=== PATIENT | male | born 1955 | race African-American/Black ===

== ENCOUNTER → 2023-10-12 09:01 | Outpatient (REF) | payer MEDICARE, OTHER, SELFPAY ==
[2023-10-12 09:28] VITALS: BP 153/71; BP_SYST 56
[2023-10-12 11:09] LABS: Glucose - Point of Care 95 mg/dl (70-99)
[2023-10-12 12:40] VITALS: BP 178/72
[2023-10-12 12:52] LABS: Glucose - Point of Care 129 mg/dl (70-99)
== END ==
LOC: RADI 09:01
PROVIDERS: ATTENDING PHYSICIAN Internal Medicine Nephrology
DX: T82.838A Hemorrhage due to vascular prosthetic devices, implants and grafts, initial encounter (principal); Y83.2 Surgical operation with anastomosis, bypass or graft as the cause of abnormal reaction of the patient, or of later complication, without mention of misadventure at the time of the procedure
CPT/HCPCS: 36902; 82962; 99152; 99153; C1725; C1769

== ENCOUNTER → 2024-03-30 11:41 | Outpatient (REF) | payer MEDICARE, OTHER, SELFPAY | LOC: HWRAD 11:41 | PROVIDERS: ATTENDING PHYSICIAN Internal Medicine | DX: Z87.891 Personal history of nicotine dependence (principal) | CPT/HCPCS: 71271 ==

== ENCOUNTER 2024-04-19 19:12 | Emergency (ER) | payer MEDICARE, OTHER, SELFPAY ==
[2024-04-19 19:14] VITALS: BP 177/58
[2024-04-19 20:42] VITALS: BP 187/58; BMI 20.8
[2024-04-19 21:00] VITALS: BP 176/56
[2024-04-19 21:28] LABS: % Eosinophils 4.1 % (0-6); % Immature Granulocytes 0.4 % (0-0.5); % Lymphocytes 25.7 % (20.5-51.1); % Monocytes 11.4 % (1.7-9.3); % Neutrophils 57.4 % (42.2-75.2); Absolute Basophils 0.1 10^3/uL (0-0.2); Absolute Eosinophils 0.2 10^3/uL (0-0.7); Absolute Lymphocytes 1.2 10^3/uL (1.2-3.4); Absolute Monocytes 0.6 10^3/uL (0.1-0.6); Absolute Neutrophils 2.8 10^3/uL (1.4-6.5); Hematocrit 22.6 % (39.0-52.0); Mean Corp Hgb Conc. 35.4 g/dL (33.0-37.0); Mean Corpuscular Hgb 29.9 pg (27.0-31.0); Mean Corpuscular Volume 84.3 fL (80.0-94.0); Mean Platelet Volume 10.1 fL (7.4-10.4); Nucleated Red Blood Cells % 0 % (-); Platelet Count 167 10^3/uL (130-400); Red Blood Cell Count 2.68 10^6/uL (4.70-6.10); Red Cell Dist. Width 14.6 % (11.5-14.5); White Blood Cell Count 4.8 10^3/uL (4.8-10.8)
[2024-04-19 21:47] LABS: INR 1.13; PT 14.6 Sec (11.4-14.6)
[2024-04-19 21:48] LABS: APTT 30.2 Sec (23.4-35.0)
[2024-04-19 21:49] LABS: ALT (SGPT) 14 U/L (0-50); AST (SGOT) 21 U/L (17-59); Albumin 4.5 g/dl (3.5-5.0); Alkaline Phosphatase 61 U/L (38-126); Blood Urea Nitrogen 39 mg/dl (9-20); Calcium 9.9 mg/dl (8.4-10.2); Carbon Dioxide 27 mmol/L (22-30); Chloride 95 mmol/L (98-107); Estimated Creatinine Clearance 11 ml/min; Glucose 179 mg/dl (70-99); Potassium 3.4 mmol/L (3.5-5.1); Sodium 139 mmol/L (135-145); Total Bilirubin 0.4 mg/dl (0.2-1.3); Total Protein 7.5 g/dl (6.3-8.2)
[2024-04-19 22:00] VITALS: BP 183/63
--- NOTE | 2024-04-19 22:09 | ED.GENMED ---
History of Present Illness
General
Chief Complaint: Abnormal Lab Value
Source: patient
Exam Limitations: none
Time Seen by Provider: 04/19/24 20:26
History of Present Illness
History of Present Illness:
This is a 68 year old male that is brought in by ambulance from the residential with abnormal labs. Patient states that he feels fine but he was told that his blood was low. States that he did vomit and he had some diarrhea. States that he still
urinated. Denies any fever, chills, chest pain, SOB, abd pain, nausea, headache, dizziness, urinary burning.
Past History
Past History
ED Past Medical History: HTN, IDDM, Renal failure (Dialysis M-W-F, ), Psychiatric (Depression) and Other (Slight Dementia but able to answer questions, Cirrhosis of the liver, Colitis, Hep A, Anemia, Right arm Fistula)
ED Past Surgical History: None
Social History
Tobacco: Smoker
Alcohol: None
Personal: Single
Living: residential
Review of Systems
Review of Systems
All Other Systems: ROS reviewed and negative except as documented in HPI and ROS
Constitutional: Denies fever or chills
EENT: Reports no symptoms
Respiratory: Reports no symptoms; Denies cough or trouble breathing
Cardiac: Reports no symptoms; Denies chest pain
ABD/GI: Reports vomiting and diarrhea; Denies abdominal pain or nausea
: Reports no symptoms; Denies dysuria, frequency or urgency
Musculoskeletal: Reports no symptoms
Skin: Reports no symptoms
Neurological: Reports no symptoms; Denies dizzy or headache
Psychiatric: Reports no symptoms
Phy Exam
General Physical Exam
General Presentation: no apparent distress
General age: appears stated age
General Skin: warm and dry
General Habitus: elderly
General Mental: usual mental status
General Hydration: appears well hydrated
ENT Exam
ENT Exam: TM's normal, pharynx normal and neck supple
Eye Exam
Eye Exam: EOMI
Cardiovascular Exam
Cardiovascular Exam: regular rate/rhythm, no edema and normal peripheral pulses
Pulmonary Exam
Pulmonary Exam: lungs clear, no respiratory distress, no rales, chest non tender, no crackles, no rhonchi, no wheezing and no cough
Gastrointestinal Exam
Gastrointestinal Exam: normal bowel sounds, non tender, soft, no organomegaly, no pulsatile mass, non distended and other (Rectal exam hem negative)
Musculoskeletal Exam
Musculoskeletal Exam: full ROM and no edema
Skin Exam
Skin Exam: normal color, warm/dry, no rash and no petechia
Psychiatric Exam
Psychiatric Exam: normal mood/affect
Course
Orders/Labs/Results
Orders:
Orders
04/19/24 19:13
EKG [Electrocardiogram (*1)] Urgent
Reason for Study: Bradycardia / Tachycardia
EKG- Treatment ONCE
04/19/24 21:20
Complete Blood Count/With Diff Urgent
Comprehensive Metabolic Panel Urgent
PTT Urgent
Prothrombin Time Urgent
Abnormal Lab Results
04/19/24
21:20
RBC 2.68 L 10^6/uL
(4.70-6.10)
Hgb 8.0 L g/dL
(13.0-18.0)
Hct 22.6 L %
(39.0-52.0)
RDW 14.6 H %
(11.5-14.5)
Monocytes % 11.4 H %
(1.7-9.3)
Potassium 3.4 L mmol/L
(3.5-5.1)
Chloride 95 L mmol/L
(98-107)
BUN 39 H mg/dl
(9-20)
Creatinine 5.1 H* mg/dL
(0.7-1.3)
Glucose 179 H mg/dl
(70-99)
04/19/24 21:20
04/19/24 21:20
H/H low which is consistent for dialysis patient. Potassium very slightly low. Chloride slightly low Chronic renal failure, Hyperglycemia. PT 14.6 with INR 1.13, PTT 30.2
Vital Signs
Initial and Last Documented VS:
Initial Vital Signs
Temp Pulse Resp BP Pulse Ox
98.5 F 63 16 177/58 100
04/19/24 19:14 04/19/24 19:14 04/19/24 19:14 04/19/24 19:14 04/19/24 19:14
Last Documented Vital Signs
Temp Pulse Resp BP Pulse Ox
98.4 F 69 20 176/56 100
04/19/24 20:42 04/19/24 20:42 04/19/24 20:42 04/19/24 21:00 04/19/24 21:30
MDM/Problems Addressed
Differential Diagnosis Includes:
Chronic kidney disease. Anemia. GI bleeding
MDM/Problems Addressed:
This is a 68 year old male that is sent in from the residential with abnormal labs.
Back into see patient. Explained that his Hgb is low but he does not need blood. Will discharge patient back to the residential. ECG noted to be in a 2:1 block. Similar to ECG in 2021. will have patient follow up with the Delinquent Account Clerk for further
evaluation.
Chronic conditions affecting care: Kidney disease
Acute Exacerbation and/or Progression of Chronic Illness: Kidney disease
*Pulse Oximetry
Patient hypoxic: no
*EKG
Interpreted by ED Provider?: Yes
Heart Rate: 59
Rate: bradycardiac
Rhythm: other (2:1 heart block, Similar to ECG in 2021)
[place]: normal axis
QRS Pattern: normal QRS
Ischemia: no ischemia
*Zone Supervisor Firearms Interpretation
Rate: Zone Supervisor Firearms- N/A
*Critical Care Note
Total Time (30-74mins, 75-104mins- exclusive of procedures): Not Applicable
ED Attending Note
-
Portions of this chart may have been created with voice recognition software.� Occasional wrong word or��sound alike� substitutions may have occurred due to the inherent limitations of voice recognition software.
Discharge Plan
Departure
Patient Disposition: Alf/SNF
Date of Disposition: 04/19/24
Time of Disposition: 22:22
Patient with high blood pressure during this ER visit?: Yes
Condition: Good
Covid-19: Not Applicable
Discharge Problem:
Abnormal laboratory test
Instructions: BLOOD PRESSURE
Prescriptions:
No Action
acetaminophen 325 mg Tablet
650 mg PO Q6H PRN (Reason: T>100.4F/MILD PAIN)
Rx Instructions:
DO NOT EXCEED 3G/24HR
donepezil [Aricept] 10 mg Tablet
10 mg PO QPM
dextrose [Glucose Gel] 40 % Gel
15 g PO Q15M PRN (Reason: BS <60)
famotidine [Pepcid] 20 mg Tablet
20 mg PO BID
nifedipine [Procardia XL] 90 mg Tablet Extended Release 24hr
90 mg PO BID
Rx Instructions:
HOLD SBP <100
bisacodyl 10 mg Suppository
10 mg [place] DAILY PRN (Reason: CONSTIPATION IF MOM IS INEFFECTIVE)
fluoxetine [Prozac] 10 mg Capsule
10 mg PO DAILY
hydralazine 50 mg Tablet
50 mg PO TID
Rx Instructions:
HOLD SBP <100
sorbitol 70 % Solution
30 ml PO DAILYPRN PRN (Reason: CONSTIPATION)
calcium carbonate-vitamin D3 500 mg-5 mcg (200 unit) Tablet
1 tab PO DAILY
Zenpep 5,000-17,000- 24,000 unit Capsule,Delayed Release(Dr/Ec)
1 cap PO MEALS
pantoprazole [Protonix] [address] for susp in packet
40 mg PO DAILY Qty: 30 0RF
clonidine HCl 0.1 mg Tablet
0.1 mg PO BID
latanoprost 0.005 % drops
1 drp BOTH EYES HS
ondansetron HCl [Zofran] 4 mg Tablet
4 mg PO Q8HPRN PRN (Reason: nausea with dialysis)
sodium polystyrene sulfonate 15 gram/60 mL Suspension
15 g PO DAILYPRN PRN (Reason: missed dialysis day)
B-complex with vitamin C [Nephro-Dash] Tablet
1 tab PO DAILY
insulin lispro [Humalog KwikPen Insulin] 100 unit/mL insulin pen
2 unit SC AC
insulin lispro [Humalog KwikPen Insulin] 100 unit/mL insulin pen
0 - 10 sliding scale dose SC MEALS
Rx Instructions:
if 0-200= 0u; 201-250= 2u; 251-300= 4u; 301-350= 6u; 351-400= 8u; 401-450= 10 u
cholecalciferol (vitamin D3) 25 mcg (1,000 unit) Tablet
50 mcg PO DAILY
sevelamer carbonate [Renvela] 800 mg Tablet
800 mg PO MEALS
Nystatin Mouth/Throat Suspensi
1 applic translingual BID
insulin glargine [Lantus Solostar U-100 Insulin] 100 unit/mL (3 mL) insulin pen
7 unit SC HS
Referrals:
Taiwo Madrid, [Family Provider] -
Activity Restrictions/Additional Instructions:
Patient blood work was recheck and Hgb is 8.0. Stool is negative for blood. Patient has no complaints. Patient has on his ECG which appears to be a 2:1 block that was noted on his ECG in 2021. Please have patient follow up with a Delinquent Account Clerk for
further evaluation. IF YOU HAVE ANY OTHER CONCERNS PLEASE RETURN TO THE EMERGENCY ROOM.
Interventions
Interventions:
*Risk Screen - Suicide Last Done: 04/19/24 19:14
*Neglect/Abuse Screening Last Done: 04/19/24 21:35
*ED COVID-19 Vaccine History Last Done: 04/19/24 21:40
Discharge Date and Time
Print Language: MONTSERRATIAN
== END 2024-04-19 22:39 ==
LOC: EMR 19:12
PROVIDERS: Emergency Medicine; EMERGENCY PHYSICIAN Emergency Medicine; FAMILY PHYSICIAN Internal Medicine
DX: R79.9 Abnormal finding of blood chemistry, unspecified (principal); I10 Essential (primary) hypertension; N19 Unspecified kidney failure; F17.200 Nicotine dependence, unspecified, uncomplicated
CPT/HCPCS: 99284; 80053; 85025; 85610; 85730; 93005

== ENCOUNTER 2024-05-07 17:10 | Inpatient (IN) | payer OTHER, SELFPAY ==
[2024-05-07 12:45] VITALS: BP 213/67; BMI 20.5
[2024-05-07 13:00] VITALS: BP 213/67
[2024-05-07 13:32] LABS: % Basophils 0.1 % (0-2); % Immature Granulocytes 0.4 % (0-0.5); % Monocytes 4.6 % (1.7-9.3); % Neutrophils 90.9 % (42.2-75.2); Absolute Immature Granulocytes 0.1 10^3/uL (0-0.05); Absolute Lymphocytes 0.5 10^3/uL (1.2-3.4); Absolute Monocytes 0.6 10^3/uL (0.1-0.6); Absolute Neutrophils 12.1 10^3/uL (1.4-6.5); Hematocrit 31.8 % (39.0-52.0); Mean Corp Hgb Conc. 34.6 g/dL (33.0-37.0); Mean Corpuscular Hgb 29.8 pg (27.0-31.0); Mean Corpuscular Volume 86.2 fL (80.0-94.0); Mean Platelet Volume 10.1 fL (7.4-10.4); Nucleated Red Blood Cells % 0 % (-); Platelet Count 178 10^3/uL (130-400); Red Blood Cell Count 3.69 10^6/uL (4.70-6.10); Red Cell Dist. Width 15.7 % (11.5-14.5); White Blood Cell Count 13.3 10^3/uL (4.8-10.8)
--- NOTE | 2024-05-07 13:33 | ED.GENMED ---
History of Present Illness
General
Chief Complaint: Abdominal Symptoms
Source: patient and ambulance crew
Exam Limitations: none
Time Seen by Provider: 05/07/24 13:12
Nursing documentation reviewed up to this point in time: agreed with
History of Present Illness
History of Present Illness:
68 yo male from [place] w h/o Cirrhosis of liver, Colitis, Kidney failure Dialysis, NIDDM, Depression, for abdominal pain, n/v. He states pain started a couple of days ago, n/v started today. Mobile xray at [place] questionable volvulus. Pt states pain is
11/04 now. He states he had a BM this morning. He denies CP, SOB.
Past History
Past History
ED Past Medical History: HTN, IDDM, Renal failure (Dialysis M-W-F, ), Psychiatric (Depression) and Other (Slight Dementia but able to answer questions, Cirrhosis of the liver, Colitis, Hep A, Anemia, Right arm Fistula)
ED Past Surgical History: None
Social History
Tobacco: Smoker
Alcohol: None
Personal: Single
Living: skilled nursing
Review of Systems
Review of Systems
Allergies reviewed?: Yes
All Other Systems: ROS reviewed and negative except as documented in HPI and ROS
Constitutional: Denies fever
Respiratory: Denies trouble breathing
Cardiac: Denies chest pain
ABD/GI: Reports abdominal pain, nausea and vomiting; Denies diarrhea, bloody stools or black stools
: Denies dysuria or difficulty voiding
Musculoskeletal: Denies edema
Skin: Reports no symptoms
Neurological: Reports no symptoms
Phy Exam
Physical Exam
Physical Exam:
GENERAL: No acute distress. A&Ox3.
CONSTITUTIONAL: Afebrile.
EYES: clear, conjunctivae normal
ENMT: moist mucus membranes, Pharynx nl
RESPIRATORY: Regular respirations, nonlabored, lungs clear.
CARDIOVASCULAR: Regular rate and rhythm, no murmurs, no rubs.
GI: Soft, mildly distended, generally tender to palpation, hypoactive BS
MUSCULOSKELETAL: Moves with ease. Well perfused.
SKIN: Warm, dry, normal
PSYCH: Normal mood and affect. Well kept, interactive and appropriate
NEUROLOGIC: Awake, alert and oriented. No focal neurological deficits
Course
Orders/Labs/Results
Orders:
Orders
05/07/24 13:15
Electrocardiogram (*1) Urgent
Reason for Study: Chest Pain
Cardiac Monitoring- Treatment ONCE
IV Insert/Care/Rem.- Treatment PRN
05/07/24 13:16
EKG- Treatment ONCE
05/07/24 13:21
Complete Blood Count/With Diff Urgent
05/07/24 13:33
HYDROmorphone [Dilaudid] 0.5 mg IV NOW STA
Ondansetron Injectable [Zofran] 4 mg IV NOW STA
05/07/24 13:51
Lactic Acid Urgent
05/07/24 13:54
Comprehensive Metabolic Panel Urgent
Lipase Urgent
05/07/24 15:07
CT Abd/pel Without Iv Or Oral Urgent
Comment:
Reason For Exam: abd pain, vomiting, dialysis, makes urine
05/07/24 15:58
HYDROmorphone [Dilaudid] 0.5 mg IV NOW STA
Piperacillin/Tazo 3.375 Gram [Zosyn] 3.375 gram in 50 ml IV NOW
05/07/24 15:59
NG Tube [GI tube insertion- Treatment] ONCE
05/07/24 16:00
0.9% Sodium Chloride 1000 ml [Nss] 1,000 ml IV BOLUS
05/07/24 16:27
Lidocaine 2% Mpf [Xylocaine Mpf 2%] 100 mg .ROUTE .STK-MED ONE
Propofol [Diprivan] 20 ml .ROUTE .STK-MED
Rocuronium [place] [Rocuronium] 50 mg .ROUTE .STK-MED ONE
05/07/24 16:28
Ondansetron Injectable [Zofran] 4 mg .ROUTE .STK-MED ONE
05/07/24 16:29
Fentanyl Citrate/Pf [Sublimaze] 100 mcg .ROUTE .STK-MED ONE
Midazolam HCl [Versed] 2 mg .ROUTE .STK-MED ONE
05/07/24 16:35
HYDROmorphone [Dilaudid] 0.25 mg IV PACU-Q5MPRN PRN
HYDROmorphone [Dilaudid] 0.5 mg IV PACU-Q5MPRN PRN
Ondansetron Injectable [Zofran] 4 mg IV PACU-ONCEPRN PRN
Prochlorperazine [Compazine] 5 mg IV PACU-ONCEPRN PRN
Notify MD As Directed
Notify physician if: for SDS patients with known or suspected sleep obstructive sleep apnea, monitor in the
PACU.
Notify MD for any apneic/desaturation episodes
O2 Therapy [RESP] Urgent
Titrate/Wean O2 to maintain O2 sat greater than (%): 92
Special Instructions: -Provide supplemental oxygen to achieve O2 sat of 92% or greater.
-After 15 min, may wean O2 and discontinue if patient is able to maintain O2 sat of 92%
or greater during recovery period.
If patient is a discharge home, without oxygen therapy, notify anestheiologist if
unable to maintain O2 SAT of 92% or greater on room air for MD clearance.
05/07/24 16:46
NORepinephrine 4 MG/250 ML [Levophed] 4 mg in 250 ml .ROUTE .STK-MED
05/07/24 16:47
Admit/Transfer Patient As Directed
Co-Sign Provider:
Level of Care: Inpatient admission
Assign to:: ICU
Physician / Group: [email or web address]
Diagnosis: Acute cecal volvulus warrants acute surgical emergency
Reason for Hospitalization: Acute cecal volvulus warrants acute surgical emergency
HX ESRD on HD ( MWF )
Expected length of stay greater than two midnights?: Yes
ELOS- Estimated Length of Stay in days: 5
I certify the patient meets the requirements for IP care: Yes
05/07/24 16:52
Code Status As Directed
Resuscitation Status: Full Code
05/07/24 16:55
Bupivacaine 0.25%Pf/Epinephrin [Sensorcaine-Epi 0.25%-0.0005] 30 ml .ROUTE .STK-MED ONE
05/07/24 17:01
Type+Screen Stat
PT/INR [Prothrombin Time] Stat
PTT Stat
05/07/24 20:08
Acetaminophen [Tylenol] 650 mg PO Q4HPRN PRN
Bisacodyl [Dulcolax] 10 mg RECTAL [id number] PRN
Dextrose 50%-Water [Dextrose 50% Syringe] 12.5 grams IV [id number] PRN
Docusate W/Senna [Senokot-S] 1 tablet PO BIDPRN PRN
Glucagon [GlucaGen] 1 mg IM PRN PRN
HYDROmorphone [Dilaudid] 0.5 mg IV Q4HPRN PRN
HydrALAZINE [Apresoline] 10 mg IV Q4HPRN PRN
Ondansetron Injectable [Zofran] 4 mg IV Q6HPRN PRN
Polyethylene Glycol Powder [Miralax] 17 grams PO DAILYPRN PRN
05/07/24 20:08
Consult Surgery [SURGICAL CONSULT] Urgent
Consulting Provider: Michael Gray
Was physician already notified: Yes
Reason for consult: Acute cecal volvulus warrants acute surgical emergency, ESRD on HD
NEPHROLOGY CONSULT Routine
Consulting Provider: Cheo Jeffries V.
Was physician already notified: Yes
Reason for consult: Acute cecal volvulus, ESRD on HD ( MWF)
Activity As Directed
Activity Level: With Assistance
Bedside Glucose Monitoring As Directed
Frequency: Q6H
Additional Instructions:: Change to q6h if pt on TPN, tube feeding or not eating
Intake/ Output As Directed
Frequency: Per unit guidelines
Pneumatic Compression Sleeves As Directed
Type: Knee high
Vital Signs As Directed
Frequency: Per unit guidelines
Weight As Directed
Frequency: Daily
DX Deep Vein Thrombosis Video Routine
05/07/24 20:24
ABO2 Urgent
BBK Wristband Number:
Associate notified that ABO2 has been ordered: [id number]
Date: 05/07/24
Time: 17:07
Screen Printing Stencil Preparer ID: [id number]
05/08/24 04:07
Basic Metabolic Panel IN AM
Glycohemoglobin (HgbA1c) IN AM
Prothrombin Time IN AM
05/08/24 Breakfast
NPO
Allow oral meds: No
Allow clear liquids: No
NPO with Ice Chips: Yes
05/08/24 07:30
Insulin Aspart Corrective Mod [Novolog Flexpen-Moderate Resistance] See Protocol SC AC
Abnormal Lab Results
05/07/24 05/07/24 05/07/24
13:21 13:51 13:54
WBC 13.3 H 10^3/uL
(4.8-10.8)
RBC 3.69 L 10^6/uL
(4.70-6.10)
Hgb 11.0 L g/dL
(13.0-18.0)
Hct 31.8 L %
(39.0-52.0)
RDW 15.7 H %
(11.5-14.5)
Abs Immat Gran (auto) 0.1 H 10^3/uL
(0-0.05)
Absolute Neuts (auto) 12.1 H 10^3/uL
(1.4-6.5)
Absolute Lymphs (auto) 0.5 L 10^3/uL
(1.2-3.4)
Neutrophils % 90.9 H %
(42.2-75.2)
Lymphocytes % 4.0 L %
(20.5-51.1)
PT
BUN 63 H mg/dl
(9-20)
Creatinine 9.9 H* mg/dL
(0.7-1.3)
Glucose 215 H mg/dl
(70-99)
Lactic Acid 2.1 H mmol/L
(0.7-2.0)
Calcium 11.1 H mg/dl
(8.4-10.2)
05/07/24
17:01
WBC
RBC
Hgb
Hct
RDW
Abs Immat Gran (auto)
Absolute Neuts (auto)
Absolute Lymphs (auto)
Neutrophils %
Lymphocytes %
PT 15.5 H Sec
(11.4-14.6)
BUN
Creatinine
Glucose
Lactic Acid
Calcium
05/07/24 13:21
05/07/24 13:54
Vital Signs
Initial and Last Documented VS:
Initial Vital Signs
Temp Pulse Resp BP Pulse Ox
98.2 F 78 40 213/67 100
05/07/24 12:45 05/07/24 12:45 05/07/24 12:45 05/07/24 12:45 05/07/24 12:45
Last Documented Vital Signs
Temp Pulse Resp BP Pulse Ox
99 F 61 18 134/63 100
05/09/24 08:04 05/09/24 12:00 05/09/24 10:30 05/09/24 10:03 05/09/24 08:30
MDM/Problems Addressed
Differential Diagnosis Includes:
bowel obstruction, gastroenteritis, ischemic bowel
MDM/Problems Addressed:
68 yo male from [place] w h/o Cirrhosis of liver, Colitis, Kidney failure Dialysis, NIDDM, Depression, for abdominal pain, n/v. He states pain started a couple of days ago, n/v started today. Mobile xray at [place] questionable volvulus. Pt states pain is
5/10 now. He states he had a BM this morning. He denies CP, SOB.
EKG: Sinus rhythm 1st degree block
14:30
More comfortable after pain med.
CBC: WBC 13.3
CMP:BUN/Creat 63/9.9 (pt for dialysis tomorrow)
Lactic 2.1
Lipase normal
Consulted Graphics Programmer Dr. Jeffries to see if can give IV contrast for abd CT, he states this may knock out the rest of his urine output.
Will get non contrast CT
4:[address] abd/pelvis plain: Radiology texted, Cecal volvulus significant dilation.
Consulted Surgeon Dr. Gray who read CT scan and agrees, emergency surgery
Pt informed of plan, Surgical PA in
Hospitalist notified of admission
Pt remains stable
*EKG
EKG Intrepretation Date: 05/07/24
Interpretation: abnormal
Rate: normal
Rhythm: sinus
[place]: normal axis
Interval: first degree heart block
QRS Pattern: normal QRS
Ischemia: no ischemia
*Critical Care Note
Total Time (30-74mins, 75-104mins- exclusive of procedures): Not Applicable
ED Attending Note
-
Portions of this chart may have been created with voice recognition software.� Occasional wrong word or��sound alike� substitutions may have occurred due to the inherent limitations of voice recognition software.
Discharge Plan
Departure
Patient Disposition: Admit
Date of Disposition: 05/07/24
Time of Disposition: 15:49
Presentation/result/management discussed w/ accepting MD/DO: Hospitalist
Condition: Serious
Discharge Problem:
Cecal volvulus
Interventions
Interventions:
*General Assessment Last Done: 05/07/24 12:45
*Neglect/Abuse Screening Last Done: 05/07/24 12:45
ED- Fall Risk Assessment Last Done: 05/07/24 17:10
*Nursing Disposition Last Done: 05/07/24 17:10
NG-Rxerhg-Namocdelpa Assessment Last Done: 05/07/24 13:35
Discharge Date and Time
Discharge Date/Time: 05/07/24 17:10
[2024-05-07] MEDS: ZOFRAN 4 MG IV (13:45)
[2024-05-07] MEDS: DILAUDID 0.5 MG IV ×2 (13:50→16:23)
--- NOTE | 2024-05-07 13:58 | EDRN ---
Lactic drawn and SST chemistry blood tube redrawn and sent to lab at this time.
[2024-05-07 14:00] VITALS: BP 216/76
[2024-05-07 14:36] LABS: Lactic Acid 2.1 mmol/L (0.7-2.0)
[2024-05-07 14:38] LABS: ALT (SGPT) 16 U/L (0-50); AST (SGOT) 28 U/L (17-59); Albumin 4.8 g/dl (3.5-5.0); Alkaline Phosphatase 69 U/L (38-126); Blood Urea Nitrogen 63 mg/dl (9-20); Calcium 11.1 mg/dl (8.4-10.2); Carbon Dioxide 23 mmol/L (22-30); Chloride 100 mmol/L (98-107); Estimated Creatinine Clearance 6 ml/min; Glucose 215 mg/dl (70-99); Lipase 32 U/L (23-300); Potassium 4.4 mmol/L (3.5-5.1); Sodium 143 mmol/L (135-145); Total Bilirubin 0.8 mg/dl (0.2-1.3); Total Protein 8.1 g/dl (6.3-8.2); eGFR 5.24
[2024-05-07 15:00] VITALS: BP 217/77
[2024-05-07 16:00] VITALS: BP 203/77
--- NOTE | 2024-05-07 16:16 | HPS.HSE ---
Family Physician
-
Family Physician: Taiwo Madrid, DO
Chief Complaint
-
abdominal pain
History of Present Illness
I could not get any information from the patient as
Information gathered by chart review and speaking with the ER staff.
HPI
68M [facility] Res HX ESRD on HD ( TTS) Cirrhosis of liver, Colitis, NIDDM, Depression and MCI vs Dementia seen at ER:
- acute diffuse abdominal moderately severe ( 5/10) pain and tenderness with distention
- Onset of N/V today
- Onset a couple of days ago
- Mobile XR at [facility] questionable volvulus.
- Report BM this AM
HD MWF
ROS:
denies CP, SOB.
Medical History
Past Medical History
Past Medical History: Reports IDDM, Renal Failure (ESRD on HD ( MWF ) ) and Psychiatric (dementia )
Past Surgical History: Reports Other (not available )
Social History
Tobacco: Non-smoker
Alcohol: None
Living: Group Home
Family History
Family History: Not pertinent
Allergies / Home Medications
Allergies reflects when Allergies were last updated in [employer].
Home Medications with original date entered in [employer]
Allergy/Medication List:
Allergies
Allergy/AdvReac Type Severity Reaction Status Date / Time
tuberculin, purified protein Allergy Unknown Unknown Verified 06/07/22 18:05
deriva
Home Medications
amoxicillin 875 mg-potassium clavulanate 125 mg tablet 1 tab PO BID #14 tabs 06/07/22
If medication reconciliation has not been performed, why?: Medication List N/A
Review of Systems
-
EENT: Reports No Symptoms
Respiratory: Reports No Symptoms
Cardiac: Reports No Symptoms
Abdomen/GI: Reports Abdominal Pain, Nausea and Vomiting
: Reports No Symptoms
Musculoskeletal: Reports No Symptoms
Skin: Reports No Symptoms
Neurological: Reports No Symptoms
Endocrine: Reports No Symptoms
Hematologic/Lymphatic: Reports No Symptoms
Psych: Reports No Symptoms
Physical Exam
Vital Signs
Vital Signs
Temp Pulse Resp BP Pulse Ox
98.2 F 87 36 217/77 100
05/07/24 12:45 05/07/24 16:00 05/07/24 16:00 05/07/24 15:00 05/07/24 16:00
Physical Exam
General: Appears in Distress, Pain and Other (cahectic and looks toxic)
HEENT: Anicteric
Respiratory: Clear
Cardiac: S1/S2 and Regular Rhythm
Breast: Deferred by me
GI: Tender (diffusely ) and Distended
Rectal: Deferred by Provider
Genito-urinary: Deferred by me
Musculoskeletal: No Edema
Skin: Other (Lt arm AVF )
Psych: No Intact Judgment/Insight
Laboratory Results
-
05/07/24 13:21
05/07/24 13:54
Laboratory Results
Lactic Acid 2.1 mmol/L (0.7-2.0) H 05/07/24 13:51
Total Bilirubin 0.8 mg/dl (0.2-1.3) 05/07/24 13:54
AST 28 U/L (17-59) 05/07/24 13:54
ALT 16 U/L (0-50) 05/07/24 13:54
Alkaline Phosphatase 69 U/L (38-126) 05/07/24 13:54
Lipase 32 U/L (23-300) 05/07/24 13:54
Data Reviewed
-
CT Scan: Report Reviewed by me
Lab Data: Labs Reviewed by me
Old Records: Reviewed
Impression/Plan
-
Vital Signs
Temp Pulse Resp BP Pulse Ox
98.2 F 87 36 217/77 100
05/07/24 12:45 05/07/24 16:00 05/07/24 16:00 05/07/24 15:00 05/07/24 16:00
Laboratory Tests
04/19/24 05/07/24 05/07/24
21:20 13:21 13:51
WBC 13.3 H
Hgb 8.0 L 11.0 L
Plt Count 178
Potassium 4.4
BUN 63
Creatinine 9.9
Glucose 215
Lactic Acid 2.1 H
Calcium 11.1
EKG:
SINUS RHYTHM WITH 1ST DEGREE A-V BLOCK
NONSPECIFIC ST AND T WAVE ABNORMALITY
ABNORMAL ECG
WHEN COMPARED WITH ECG OF 19-APR-2024 19:35,
SINUS RHYTHM IS NO LONGER WITH 2ND DEGREE A-V BLOCK (MOBITZ I)
CT Abd/pel Without Iv Or Oral
- highly suspicious for a cecal volvulus with significant dilatation of the superiorly flipped cecum containing an air-fluid level, twisting of the central abdominal mesentery, and collapse of the colon distal to the cecum.
Last hospitalist admission: Date of Admission: 06/08/22 -Date of Discharge: 06/12/22
Primary diagnoses:
Hypertensive urgency
Nausea, vomiting, and abdominal pain due to constipation
Secondary diagnoses:
End-stage renal disease on hemodialysis
Cholelithiasis
Type 2 diabetes mellitus
ASSESSMENT & PLAN
Acute cecal volvulus : acute surgical emergency
CT suggest significant dilatation of the superiorly flipped cecum containing an air-fluid level, twisting of the central abdominal mesentery, and collapse of the colon distal to the cecum
- NPO and cautious IVF
- PRN narcotic analgesia
- Empiric Zosyn
- For emergent OR per GS Dr Michael Gray
- Anticipate Post OP ICU admission
HTN urgency due to acute pain
- PRN Narcotic analgesia
- add IV Hydralazine PRN for SBP > 165, DBP > 115
ESRD:
- on HD M/W/F
- Nephrology consult
HX Cholelithiasis: asymptomatic
Normal AST/ALT. AP
DM2:
- cont Lantus
- Hold premeal aspart due to NPO
- mod SSI
DVT Px: SCD
Full code
ICU
Total Critical Care Time_55____ minutes.
I was immediately available to the patient and staff. I personally examined, reviewed labs, diagnostic images/reports, interpretations, treatment plans, discussed patient care with other providers and family or caregivers (if patient is unable to
make decisions), entered orders as appropriate and documented the medical record.
--- NOTE | 2024-05-07 16:18 | EDRN ---
Rin was in to see pt for surgery sun.
--- NOTE | 2024-05-07 16:19 | CON.GS ---
Addendum entered and electronically signed by Michael Gray MD 05/07/24 16:51:
I saw and examined the patient independently.
The [employer] Worker's note was reviewed and I agree with the note, assessment and plan except where noted below.
Comment: This is a 68-year-old male with a history of dementia, ESRD on HD MWF, hypertension, diabetes, former EtOH abuse who presents through the ED from his SNF for severe abdominal pain. CT scan showing cecal volvulus. Exam firm and distended
with significant tenderness.
Will plan for exploratory laparotomy, partial right colectomy emergently.
N.p.o., NG tube, IV fluids
IV antibiotics
Type and screen, check coags.
Risks/Benefits/Alternatives, expected postoperative course and possible complications (bleeding, infection, injury to surrounding structures, acute/chronic pain) discussed at length. Patient wishes to proceed with surgery. All questions answered.
Consent obtained from his brother over the phone due to the patient's underlying dementia.
I spent 75 minutes in total for the care of this patient today including direct patient care and counseling, reviewing labs, imaging, coordination of care, as well as documentation.
Original Note:
Medical History
-
Chief Complaint: abdominal pain
History of Present Illness:
Mr. Land is a 68 yo male with a h/o dementia, ESRD on HD, HTN, DM, prior ETOH abuse who presents through the ED from his SNF with abdominal pain and XR imaging demonstrating colonic dilation facility. He is unable to answer my questions at this
time due to pain and confusion. On exam, the abdomen is firm and distended with tenderness to even light palpation. He is hypertensive but afebrile and not tachycardic. History obtained from the patients [facility] record. His brother is listed as
his emergency contact but unable to reach by phone at this time at both his cell phone number and the house number listed. He is full code status at his SNF.
Past Medical History
Past Medical History: HTN, IDDM and Other (Dementia, ETOH abuse with liver dz)
Past Surgical History: Other (Unknown)
Social History
Tobacco: Other (unknown)
Alcohol: Former
Family History
Family History: Unable to Obtain
Allergies / Home Medications
Allergy/AdvReac Type Severity Reaction Status Date / Time
tuberculin, purified protein Allergy Unknown Unknown Verified 05/07/24 14:31
deriva
�Medication �Instructions �Recorded �Confirmed �Type
acetaminophen 325 mg tablet 650 mg PO Q6HPRN PRN MILD PAIN 06/08/22 05/07/24 History
bisacodyl 10 mg rectal suppository 10 mg [place] DAILYPRN PRN IF MOM IS 06/08/22 05/07/24 History
INEFFECTIVE
calcium 500 mg (as 1 tab PO DAILY Supplement 06/08/22 05/07/24 History
carbonate)-vitamin D3 5 mcg (200
unit) tablet
donepezil 10 mg tablet (Aricept) 10 mg PO HS Mental Health/Anxiety 06/08/22 05/07/24 History
famotidine 20 mg tablet (Pepcid) 20 mg PO BID Gastrointestinal issue 06/08/22 05/07/24 History
fluoxetine 10 mg capsule (Prozac) 10 mg PO DAILY Mental 06/08/22 05/07/24 History
Health/Anxiety
hydralazine 50 mg tablet 50 mg PO TID Blood pressure 06/08/22 05/07/24 History
dfvqlp-zyymlurz-oiaooty 1 cap PO MEALS Kidney Disease 06/08/22 05/07/24 History
5,000-17,000-24,000 unit capsule,
delayed rel (Zenpep)
nifedipine 90 mg tablet,extended 90 mg PO BID Blood pressure 06/08/22 05/07/24 History
release 24 hr (Procardia XL)
sorbitol 70 % solution 30 ml PO DAILYPRN PRN CONSTIPATION 06/08/22 05/07/24 History
pantoprazole 40 mg granules 40 mg PO DAILY #30 ea 06/12/22 05/07/24 Rx
delayed-release for susp in packet
(Protonix)
clonidine HCl 0.1 mg tablet 0.1 mg PO BIDPRN PRN SBP>170 10/12/23 05/07/24 History
cholecalciferol (vitamin D3) 25 50 mcg PO DAILY 04/19/24 05/07/24 History
mcg (1,000 unit) tablet
insulin glargine 100 unit/mL (3 7 unit SC HS Diabetes 04/19/24 05/07/24 History
mL) subcutaneous pen (Lantus
Solostar U-100 Insulin)
insulin lispro 100 unit/mL 2 unit SC AC 04/19/24 05/07/24 History
subcutaneous pen (Humalog KwikPen
(U-100) Insulin)
latanoprost 0.005 % eye drops 1 drp BOTH EYES HS 04/19/24 05/07/24 History
nystatin 100,000 unit/mL oral 0 ml mucous membrane BID 04/19/24 05/07/24 History
suspension
ondansetron HCl 4 mg tablet 4 mg PO Q8HPRN PRN nausea with 04/19/24 05/07/24 History
dialysis
sevelamer carbonate 800 mg tablet 800 mg PO MEALS 04/19/24 05/07/24 History
(Renvela)
sodium polystyrene sulfonate 15 15 g PO DAILYPRN PRN missed 04/19/24 05/07/24 History
gram/60 mL oral suspension dialysis day
B-complex with vitamin C 1 tab PO DAILY 05/07/24 05/07/24 History
Review of Systems
-
Unable to obtain full review of systems at this time due to: Dementia and Acuity
History Source: Intermediate
A 10 point review of systems was completed, and was negative except as per HPI.
Physical Exam
Vital Signs
Temp Pulse Resp BP Pulse Ox
98.2 F 83 38 203/77 100
05/07/24 12:45 05/07/24 16:15 05/07/24 16:15 05/07/24 16:00 05/07/24 16:15
05/06/24 05/07/24 05/08/24
06:59 06:59 06:59
Actual Weight 57.6 kg
Body Mass Index (BMI) 20.5
Lab Results
05/07/24 13:21
05/07/24 13:54
WBC 13.3 10^3/uL (4.8-10.8) H 05/07/24 13:21
Hgb 11.0 g/dL (13.0-18.0) L 05/07/24 13:21
Hct 31.8 % (39.0-52.0) L 05/07/24 13:21
Plt Count 178 10^3/uL (130-400) 05/07/24 13:21
Abs Immat Gran (auto) 0.1 10^3/uL (0-0.05) H 05/07/24 13:21
Neutrophils % 90.9 % (42.2-75.2) H 05/07/24 13:21
Physical Exam
General: Pain and Other (temporal wasting); Negative Well Nourished or Comfortable
HEENT: Normocephalic; Negative Moist Mucous Membranes
Respiratory: Non Labored Respirations
GI: Tender (markedly throughout to light palpation) and Distended; Negative Soft
Skin: Warm
Neuro: Other (ox1 only, sleepy awakens easily to name); Negative Alert
Psych: Calm
Data Reviewed
-
CT Scan: Image Personally Visualized and interpreted, Report Reviewed by me, Discussed with Physician, Discussed with Nurse and Discussed with Patient
Labs: Labs Reviewed by me, Discussed with Physician and Discussed with Patient
Old Records: Reviewed
Assessment / Plan
-
68 yo male with h/o dementia, ESRD on HD, and DM who presents from SNF with abdominal pain with distention and marked tenderness present.
CT imaging obtained with cecal volvulus present and significant bowel distention noted. He is hypertensive but afebrile. Mild leukocytosis present. Lactic acid mildly elevated at 2.1. BMP consistent with h/o ESRD.
--Place NGT for decompression
--Will send type and screen and coags stat
--Will plan emergent surgery for exploratory laparotomy
--Will attempt to reach brother again for consent as patient is only ox1 at this time
[2024-05-07] MEDS: NSS 1000 IV (16:22)
[2024-05-07] MEDS: ZOSYN 50 IV (16:24)
--- NOTE | 2024-05-07 16:55 | EDRN ---
Report called to Bee ACHARYA in OR at this time.
--- NOTE | 2024-05-07 17:00 | EDRN ---
NGT drained 250 mL of thick green secretions.
--- NOTE | 2024-05-07 17:01 | W.SUR.PREOP ---
Pre-Operative Surgical Note
-
I have examined this patient prior to the performance of the scheduled procedure.
The patient's condition is unchanged from the time of the current History and
Physical and the patient is able to undergo the scheduled procedure.
--- NOTE | 2024-05-07 17:03 | EDRN ---
Coag study bloods and Type and screen drawn at this time and sent to lab.
[2024-05-07 17:04] VITALS: BP 205/75
[2024-05-07 17:19] LABS: PT 15.5 Sec (11.4-14.6)
[2024-05-07 17:20] LABS: APTT 33.9 Sec (23.4-35.0)
[2024-05-07 18:46] LABS: Glucose - Point of Care 107 mg/dl (70-99)
--- NOTE | 2024-05-07 19:34 | W.IMMPOSTOP ---
Surgical Immed Post Op Note
-
Primary Surgeon: Michael Gray MD
Assisting Surgeon: None
Pre-op Diagnosis: Cecal volvulus
Post-op Diagnosis: Cecal volvulus, necrotic cecum
Procedure Performed:
1. Exploratory laparotomy
2. Open ileocecectomy
Anesthesia Type: General
Specimen / Cultures:
1. Ileocecectomy
Estimated Blood Loss: 11 cc
Complications: None
Operative Findings: Markedly dilated and necrotic cecum that was volvulized around its mesentery x 2. The small bowel was ligated and the ileocolic pedicle was clamped to prevent cytokine release once the cecum was detorsed. The white line of
[place] was incised and the right colon was medialized up to the hepatic flexure. After removal of the specimen and end to end, functional [id number] stapled ileocolonic anastomosis was made using an 80 purple JENSEN stapler. In total 4 staple loads
were used. The mesentery was closed, 2 crotch stitches were placed and the staple line was oversewn all with 3-0 silk sutures. The abdomen was irrigated out with a liter of warm saline but there was minimal to no contamination. The midline was
closed with x2 0 PDS sutures anchored at each apex and tied in the middle using half centimeter bites with half centimeter advancement. The skin was closed with richy. An NG tube placed preoperatively in the ED was confirmed to be in proper
positioning intraoperatively, and a 16 [place] Robles was placed at the start of the procedure. 1 g of TXA during the case was given as there was some superficial oozing around the patient's markedly cirrhotic liver.
POST OP PLAN:
Imaging: None
Labs: Routine AM
Diet: N.p.o., continue NG tube to low intermittent wall suction.
Analgesia: Tylenol 650mg q6 Clare, Letty 5mg q6 PRN, Dilaudid 0.5mg q2h PRN
Neuro/vascular checks: q4h
AC/AP: Hold Therapeutic AC, Ok for DVT PPx
Activity: No restrictions
Wound/Incisions/Drains: Routine
Abx: Will continue antibiotics x 4 days
Dispo: RNF
[2024-05-07] MEDS: SUBLIMAZE 100 MCG IV (20:29)
[2024-05-07] MEDS: SUBLIMAZE 100 IV (20:29)
[2024-05-07] MEDS: DIPRIVAN 100 IV (20:36)
[2024-05-07] MEDS: NOVOLOG FLEXPEN-MODERATE RESISTANCE SC (20:52)
[2024-05-07 20:55] LABS: B.E. -2.5 mmol/L; HCO3 21.6 mmol/L (21-28); O2 Saturation % 99.8 % (94-98); PCO2 34 mmHg (35-48); PO2 165 mmHg (83-108); pH 7.41 (7.35-7.45)
[2024-05-07 20:57] LABS: Hematocrit 30.5 % (39.0-52.0); Hemoglobin 10.7 g/dL (13.0-18.0); Mean Corp Hgb Conc. 35.1 g/dL (33.0-37.0); Mean Corpuscular Hgb 30.3 pg (27.0-31.0); Mean Corpuscular Volume 86.4 fL (80.0-94.0); Platelet Count 164 10^3/uL (130-400); Red Blood Cell Count 3.53 10^6/uL (4.70-6.10); Red Cell Dist. Width 15.8 % (11.5-14.5); White Blood Cell Count 10.4 10^3/uL (4.8-10.8)
[2024-05-07 21:02] LABS: Glucose - Point of Care 112 mg/dl (70-99)
[2024-05-07 21:16] LABS: Triglycerides 85 mg/dl (10-149)
[2024-05-07 21:21] LABS: Blood Urea Nitrogen 63 mg/dl (9-20); Carbon Dioxide 19 mmol/L (22-30); Chloride 105 mmol/L (98-107); Estimated Creatinine Clearance 6 ml/min; Glucose 111 mg/dl (70-99); Magnesium 2.1 mg/dl (1.6-2.3); Phosphorus 4.7 mg/dl (2.5-4.5); Potassium 3.8 mmol/L (3.5-5.1); Sodium 146 mmol/L (135-145); eGFR 4.99
--- NOTE | 2024-05-07 21:30 | PTCARENOTE ---
Addendum entered by Reese Kunz RN 05/08/24 04:24:
Monitor handoff not completed on worklist, This RN transported patient on ICU monitor from OR on ICU monitor.
Original Note:
Received pt. 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
Surgical site intact minimal shadowing. NG tube in place. Hemodynamically stable on monitor.
RASS -1, does not follow commands at this time, pupils =/r 2mm sluggish, normocephalic/atraumatic, does w/d to pain, all protective reflexes intact.
Normothermic via core temp, hypertensive upon arrival --> started on sedation gtt, now normotensive, afib w/o RVR on monitor.
Vent settings as follows CMV 14/500/5/40% --> fio2 decreased upon arrival, sp02 100. ETT upon cxr 6cm above luca tube advanced by RT to 26.
Euglycemic, briefly on insulin gtt intra op.
Sedation gtt as follows
-Fent 50 mcg
-Diprivan 20 mcg.
[2024-05-07] MEDS: LANTUS 0.07 UNITS SC (22:50)
[2024-05-08] VITALS (15 sets, daily range): BP systolic 119–180; BP diastolic 27–98; BMI 19.8
--- NOTE | 2024-05-08 01:00 | W.PN.UPDATE ---
Update Note
Progress Note Update
Patient chest xray phu out left lung, temp 100. Advised RN to turn patient on to right side vs back to help with oxygenation. Will obtain blood cultures, lactic, UA (if able) and ordered zosyn IV.
--- NOTE | 2024-05-08 01:24 | PTCARENOTE ---
CXR revealing white out on Right side, increasing secretions, core temp rising, icu joseph notified Blood cx. ordered, UA, and pip tazo restarted.
[2024-05-08] MEDS: HEPARIN 5000 UNITS SC ×3 (01:26→23:21)
[2024-05-08 01:48] LABS: Urine Albumin 3+ (Neg - Trace); Urine Bilirubin Negative (Negative); Urine Color Yellow; Urine Glucose Trace (Negative); Urine Ketone Negative (Negative); Urine Leukocyte 2+ (Negative); Urine Nitrite Negative (Negative); Urine Occult Blood 2+ (Negative); Urine Urobilinogen Negative (Neg - 1+)
[2024-05-08 01:49] LABS: Urine Character Cloudy (Clear)
[2024-05-08 01:57] LABS: Lactic Acid 2.9 mmol/L (0.7-2.0)
[2024-05-08] MEDS: ZOSYN 50 IV ×2 (02:42→13:28)
[2024-05-08 02:46] LABS: Urine Amorphous Seen; Urine Mucus Many; Urine Squamous Cell >30 /LPF (Few); Urine Urothelial Cell >30 /LPF (FEW)
[2024-05-08 02:47] LABS: Urine Bacteria Many (Negative); Urine Triple Phosphate Crystal Seen; Urine White Cell >100 /HPF (0-5)
[2024-05-08] MEDS: NOVOLOG FLEXPEN-MODERATE RESISTANCE 1 UNITS SC ×2 (02:51→17:10)
[2024-05-08 03:02] LABS: Glucose - Point of Care 178 mg/dl (70-99)
[2024-05-08 04:17] LABS: B.E. -1.4 mmol/L; HCO3 21.1 mmol/L (21-28); O2 Saturation % 99.6 % (94-98); PCO2 27 mmHg (35-48); PO2 180 mmHg (83-108)
[2024-05-08 04:21] LABS: % Basophils 0.2 % (0-2); % Immature Granulocytes 0.3 % (0-0.5); % Lymphocytes 7.6 % (20.5-51.1); % Monocytes 5.6 % (1.7-9.3); % Neutrophils 86.3 % (42.2-75.2); Absolute Lymphocytes 0.8 10^3/uL (1.2-3.4); Absolute Monocytes 0.6 10^3/uL (0.1-0.6); Absolute Neutrophils 9.4 10^3/uL (1.4-6.5); Hematocrit 25.8 % (39.0-52.0); Hemoglobin 9.2 g/dL (13.0-18.0); Mean Corp Hgb Conc. 35.7 g/dL (33.0-37.0); Mean Corpuscular Hgb 30.4 pg (27.0-31.0); Mean Corpuscular Volume 85.1 fL (80.0-94.0); Mean Platelet Volume 10.5 fL (7.4-10.4); Nucleated Red Blood Cells % 0 % (-); Platelet Count 144 10^3/uL (130-400); Red Blood Cell Count 3.03 10^6/uL (4.70-6.10); Red Cell Dist. Width 15.7 % (11.5-14.5); White Blood Cell Count 10.8 10^3/uL (4.8-10.8)
--- NOTE | 2024-05-08 04:24 | PTCARENOTE ---
No change in pt. assessment.
[2024-05-08 04:27] LABS: INR 1.41; PT 17.5 Sec (11.4-14.6)
[2024-05-08 04:48] LABS: Lactic Acid 2.6 mmol/L (0.7-2.0)
[2024-05-08 04:49] LABS: Blood Urea Nitrogen 75 mg/dl (9-20); Calcium 10.1 mg/dl (8.4-10.2); Carbon Dioxide 19 mmol/L (22-30); Chloride 104 mmol/L (98-107); Estimated Creatinine Clearance 5 ml/min; Glucose 173 mg/dl (70-99); Magnesium 2.2 mg/dl (1.6-2.3); Phosphorus 4.6 mg/dl (2.5-4.5); Potassium 4.3 mmol/L (3.5-5.1); Sodium 143 mmol/L (135-145); eGFR 4.61
--- NOTE | 2024-05-08 07:44 | W.PN.HOSP.TC ---
Today's Communication/Plan
-
.
Assessment / Plan
Assessment / Plan
ASSESSMENT/PLAN
# Sepsis POA secondary to Cecal Volvulus
#s/p Exploratory Laparotomy and open ileocecectomy with necrotic cecum 05/07/24
-Currently on assist-control mode ventilation. Sedation with propofol/fentanyl
-continue NG tube to low intermittent wall suction.
-Keep N.P.O
-Continue on Zosyn
-Surgery following
-Spontaneous breathing trial today
#Essential HTN with HTN Emergency present on Admission
-Pain control as needed
-Hydralazine PRN
-Monitor BP.
#ESRD on HD
-Nephrology consulted.
-HD today
#T2DM
-Continue Lantus.
-Hold premeal insulin due to NPO
-SSI coverage
DVT ppx- Heparin SubQ
CODE STATUS- Full code.
Anticipated Discharge: > 48 hours
Subjective/Interval History
-
Patient seen and examined at beside. Currently intubated. Non verbal. Could squeeze my hands.
Objective Data
-
Labs:
Laboratory Results
05/07/24 05/08/24
20:24 04:07
WBC 10.4 10.8
Hgb 10.7 L 9.2 L
Hct 30.5 L 25.8 L
Plt Count 164 144
PT 17.5 H
INR 1.41
HCO3 21.6 21.1
Sodium 146 H 143
Potassium 3.8 4.3
Chloride 105 104
Carbon Dioxide 19 L 19 L
BUN 63 H 75 H
Creatinine 10.3 H* 11.0 H*
Glucose 111 H 173 H
Calcium 10.0 10.1
Vital Signs:
Vital Signs
Temp Pulse Resp BP Pulse Ox
99.7 F 59 16 205/75 100
05/08/24 07:39 05/08/24 06:00 05/08/24 06:00 05/07/24 17:04 05/08/24 07:18
I&O
05/07/24 05/08/24 05/09/24
06:59 06:59 06:59
Intake Total 138.4 / 138.4
Output Total 70 / 70
Balance 68.4 / 68.4
Review of Systems
-
Unable to obtain full review of systems at this time due to: Patient Intubation
Physical Exam
-
General: Intubated
GI: Soft, Nondistended and Tender
Musculoskeletal: No Edema
Neuro: Awake
--- NOTE | 2024-05-08 07:53 | W.PN.UPDATE ---
Update Note
Progress Note Update
I saw and evaluated the patient. I reviewed the resident�s note and agree with findings and plan as documented in the resident�s note.
205/75, 589, 16, 99.7 F 100%
Gen: NAD, awake and somewhat alert, NCTA
Eyes: EOMI, PERRLA, no scleral icterus.
Neck: supple.
CV: RRR, +S1/S2, no m/r/g.
Resp: CTAB, no rales, wheezes, or rhonchi.
Abd: +BS, soft, diffuse TTP, ND
Skin: No rashes.
Neuro: CN 2-12 intact
Psych: calm
CT A/P (no contrast): highly suspicious for a cecal volvulus with significant dilatation of the superiorly flipped cecum containing an air-fluid level, twisting of the central abdominal mesentery, and collapse of the colon distal to the cecum.
CXR 05/08/24AM: There is gas beneath the right hemidiaphragm which I favor is cecal volvulus with dilated cecum as seen on 05/07/2024 CT examination. Free intraperitoneal air is less likely, however, clinical correlation is recommended. The tip of
the endotracheal tube is in satisfactory position There is moderate stable pleural parenchymal scarring in the upper left lung. There are no superimposed acute pulmonary abnormalities.
Sepsis, POA, due to acute cecal volvulus:
-Patient went for emergent surgery, exploratory laparotomy and open ileocecectomy 05/07/24PM
-NPO
-currently ACMV, sedation with propofol/Fentanyl
-cont Zosyn
-CXR reviewed, rec SBT today
Essential hypertension with hypertensive emergency:
-Hydralazine PRN
-once able to take PO, resume home PO antihypertensives
Other problems:
ESRD: cont HD as per renal
h/o cholelithiasis
DM2: cont Lantus/SSI/accuchecks
FULL/Heparin
Case discussed with CC/RN.
Total critical care time spent = 36 min
--- NOTE | 2024-05-08 08:00 | PTCARENOTE ---
[facility], intubated with fent and prop infusing, see flowsheet, ETT #8, 26 cm at the lip, tolerating current vent settings AC 14/450/50/40%. Lungs coarse t/o, pt with copious oral secretions, whitish/clear, suctioned and oral care
provided. Pt is opening eyes and nodding appropriately, PERRL, [place]. Pt in afib on the monitor with HR in the 70s, BBC and prolonged QT noted. Left nare NGT to LIS, bilious drainage noted, absent bowel sounds t/o, abd incision covered with surgical
adhesive dressing, slight shadowing noted, assessed by Surgeon Dr. Pereyra at bedside. Robles placed intraop remains in place. Right radial [place] leveled and zeroed; left EJ, right wrist, right arm PIVs in place. Left upper arm fistula +bruit and
thrill. Started HD at 0800. Safe environment maintained.
--- NOTE | 2024-05-08 08:11 | CON.INTV ---
Consultation
Consultation Request
Date/Time Consultation Requested: 05/07/2024 - 2020
Date/Time Consultation Performed: 05/08/2024805
Requesting Provider: GENEVA Hewitt
Performing Provider: Taiwo Lamas MD
Reason for Consultation: Intubated s/p OR
Medical History
-
Chief Complaint: Abdominal pain
History of Present Illness:
68-year-old male with a past medical history of ESRD on HD, hypertension, dementia, EMEA and DM type II who presented with abdominal pain for few days. He also had nausea/vomiting. Multiple abdominal XR NURSE PRACTITIONER ADULT showed possible obstruction versus
volvulus. Patient arrived to the ER moaning in pain and holding his belly and had a large soft formed BM in diaper. Abdomen also was apparently rigid. Initially in the ER, patient was afebrile to 98.2 �F, pulse rate 78, breathing at 35-40
breaths/min, he was hypertensive to 213/67 and saturating 100% on room air. Initial labs showed leukocytosis to 13.3, Hb 11, glucose 215, and lactate 2.1. CT abdomen/pelvis without contrast showed cecal volvulus with significant dilatation of the
superiorly flipped cecum containing an air-fluid level. In the ER he was given Dilaudid, NS 0.9% x 1L bolus, Zofran + Zosyn. Surgery consulted and an exploratory laparotomy with open ileocecectomy with ileocolic anastomosis was performed. There
were no immediate complications with EBL 11 cc. Patient was transferred to the ICU and remained intubated and proposal coordinator services consulted for additional management/recommendations.
Pt seen and and evaluated this AM. Getting HD today (usually gets sessions //). He is on fentanyl at 50mcg/hr and prop at 10mcg/kg/min. He is following commands. Moderate secretions from ETT - thick and isbell; being suctioned well. HR 71, BP
124/47. On vent AC/CMV at: 14/450/40%/5. PIP 99baP0E, VTe 382 cc and breathing at 20 breaths/min. End-tidal CO2 ranges from 17�23.
PMHx: ESRD on HD, hypertension, anemia, dementia, DM type II, history of depression, liver disease
PSHx: Left AVF
Past Medical History
Past Medical History: Other (Above as per HPI)
Past Surgical History: Other (Above as per HPI)
Social History
Tobacco: Smoker (0.25-0.5 PPD)
Alcohol: Occasional
Drug: None
Living: Long Term
Family History
Family History: Unable to Obtain (intubated)
Allergies / Home Medications
Allergies
Allergy/AdvReac Type Severity Reaction Status Date / Time
tuberculin, purified protein Allergy Unknown Unknown Verified 05/07/24 14:31
deriva
Home Medications
�Medication �Instructions �Recorded �Confirmed �Last Taken �Type
acetaminophen 325 mg tablet 650 mg PO Q6HPRN PRN MILD PAIN 06/08/22 05/07/24 Unknown History
bisacodyl 10 mg rectal suppository 10 mg [place] DAILYPRN PRN IF MOM IS 06/08/22 05/07/24 Unknown History
INEFFECTIVE
calcium 500 mg (as 1 tab PO DAILY Supplement 06/08/22 05/07/24 Unknown History
carbonate)-vitamin D3 5 mcg (200
unit) tablet
donepezil 10 mg tablet (Aricept) 10 mg PO HS Mental Health/Anxiety 06/08/22 05/07/24 Unknown History
famotidine 20 mg tablet (Pepcid) 20 mg PO BID Gastrointestinal issue 06/08/22 05/07/24 Unknown History
fluoxetine 10 mg capsule (Prozac) 10 mg PO DAILY Mental 06/08/22 05/07/24 Unknown History
Health/Anxiety
hydralazine 50 mg tablet 50 mg PO TID Blood pressure 06/08/22 05/07/24 Unknown History
uanxar-lermgnuz-mgzpptm 1 cap PO MEALS Kidney Disease 06/08/22 05/07/24 Unknown History
5,000-17,000-24,000 unit capsule,
delayed rel (Zenpep)
nifedipine 90 mg tablet,extended 90 mg PO BID Blood pressure 06/08/22 05/07/24 Unknown History
release 24 hr (Procardia XL)
sorbitol 70 % solution 30 ml PO DAILYPRN PRN CONSTIPATION 06/08/22 05/07/24 Unknown History
pantoprazole 40 mg granules 40 mg PO DAILY #30 ea 06/12/22 05/07/24 Unknown Rx
delayed-release for susp in packet
(Protonix)
clonidine HCl 0.1 mg tablet 0.1 mg PO BIDPRN PRN SBP>170 10/12/23 05/07/24 Unknown History
cholecalciferol (vitamin D3) 25 50 mcg PO DAILY 04/19/24 05/07/24 Unknown History
mcg (1,000 unit) tablet
insulin glargine 100 unit/mL (3 7 unit SC HS Diabetes 04/19/24 05/07/24 Unknown History
mL) subcutaneous pen (Lantus
Solostar U-100 Insulin)
insulin lispro 100 unit/mL 2 unit SC AC 04/19/24 05/07/24 Unknown History
subcutaneous pen (Humalog KwikPen
(U-100) Insulin)
latanoprost 0.005 % eye drops 1 drp BOTH EYES HS 04/19/24 05/07/24 Unknown History
nystatin 100,000 unit/mL oral 0 ml mucous membrane BID 04/19/24 05/07/24 Unknown History
suspension
ondansetron HCl 4 mg tablet 4 mg PO Q8HPRN PRN nausea with 04/19/24 05/07/24 Unknown History
dialysis
sevelamer carbonate 800 mg tablet 800 mg PO MEALS 04/19/24 05/07/24 Unknown History
(Renvela)
sodium polystyrene sulfonate 15 15 g PO DAILYPRN PRN missed 04/19/24 05/07/24 Unknown History
gram/60 mL oral suspension dialysis day
B-complex with vitamin C 1 tab PO DAILY 05/07/24 05/07/24 Unknown History
Review of Systems
-
Unable to Obtain full review of systems at this time due to: Patient Intubation
Vitals / Labs / Diagnostic Testing
Vital Signs
Temp Pulse Resp BP Pulse Ox
99.7 F 59 16 205/75 100
05/08/24 07:39 05/08/24 06:00 05/08/24 06:00 05/07/24 17:04 05/08/24 07:18
Lab Data
05/08/24 04:07
05/08/24 04:07
Laboratory Results
05/07/24 05/07/24 05/08/24
17:01 20:24 04:07
PT 15.5 H 17.5 H
INR 1.20 1.41
APTT 33.9
pH 7.41 7.50 H
pCO2 34 L 27 L
pO2 165 H 180 H
HCO3 21.6 21.1
O2 Delivery Level
Diagnostic Testing:
Physical Exam
-
HEENT: Normocephalic and Anicteric
Cardiovascular: S1/S2, Rub (negative), Peripheral Edema (negative) and Other (ETT in place)
Respiratory: Wheeze (negative), Rales (negative), Rhonchi (negative), Non-Labored Respirations and Other (Mechanical breath sounds heard bilaterally)
GI: Soft, Distended, Tender (Diffusely) and Normal Bowel Sounds
Neurology: Tremors (negative) and Other (Lethargic but easily arousable and nodding his head yes/no to my questions appropriately; opens eyes to questioning)
Skin: Warm and Dry
General: Respiratory Distress (negative), Pain (abdominal mainly during palpation), Chills (negative) and Sweats (negative)
Assessment
-
Assessment: 68-year-old male with a past medical history of ESRD on HD, hypertension, dementia, EMEA and DM type II who presented with abdominal pain for few days. He also had nausea/vomiting. Multiple abdominal XR NURSE PRACTITIONER ADULT showed possible obstruction
versus volvulus. Patient arrived to the ER moaning in pain and holding his belly and had a large soft formed BM in diaper. Abdomen also was apparently rigid. CT abdomen/pelvis performed showing cecal volvulus with significant dilatation of the
superiorly flipped cecum containing an air-fluid level. Surgery consulted and an exploratory laparotomy with open ilio sick ectomy was performed. There were no immediate complications with EBL 11 cc. Patient was transferred to the ICU and
remained intubated and proposal coordinator services consulted for additional management/recommendations.
Chronic conditions NURSE PRACTITIONER ADULT: ESRD on HD, hypertension, anemia, dementia, DM type II, history of depression, liver disease, history of colitis, history of hepatitis A, amatory dysfunction, glaucoma, history of alcohol abuse, GERD
Impression:
#Acute respiratory failure with hypoxia on mechanical ventilation
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
#Acute on chronic anemia (Hb ranged between 14-15.5 in 2021)
#Mild thrombocytopenia
#Respiratory alkalosis
#Metabolic acidosis with normal anion gap (due to renal failure with sCr: 11, BUN: 75)
#Lactic acidosis
#Abnormal urinalysis suspicious for UTI with +2 leukocyte esterase and >100 urine WBC
#Dementia
#DM type II
#ESRD on HD
#Hypertension
#Chronic left upper lobe volume loss with traction bronchiectasis, apical cystic airspace disease with peribronchial thickening
#Tobacco use disorder
#Alcohol use disorder
Plan:
- Patient remains intubated on mechanical ventilation
- Will perform SBT this morning and hopefully extubate
- Maintain SpO2 >90-94% by titrating FiO2 + PEEP
- Keep peak pressures <30�35
- Continue to monitor ETCO2
- His CXR shows stable pleural parenchymal scarring in the left upper lobe with no superimposed acute abnormalities - continue to monitor
- Continue with postoperative care as per general surgery
- Keep NPO and hold TF (if not extubated) until cleared otherwise by surgery
- Follow up cecum pathology from the OR
- Nicotine patch
- Monitor for EtOH withdrawal with MSAS
- Thiamine + folate
- Pain control
- Trend lactate until <2mmol/L
- Maintain MAP>65
- Given his surgery and unable to give PO meds, transition PO meds to IV when able to; it appears that he takes clonidine BID prn --> will consider starting Catapres to avoid rebound HTN
- Continue with broad spectrum Abx - currently on Zosyn
- Follow-up blood cultures (collected 05/08/2024 - NGTD)
- Replete electrolytes with K>4, Mg>2
- Maintain euglycemia with goal BG 140-180
- Trend H/H and transfuse if needed to keep Hb>7g/dL; keep plt>50k (given his post-operative status)
- prn nebulized bronchodilators - not currently bronchospastic
- DVT ppx: HSQ
Critical care statement: A total of 37 minutes of critical care time was provided for this patient today. This includes management of unstable vital signs, evaluation of the patient at bedside, reviewing the patient's pertinent medical records
including radiographs, microbiology, laboratory evaluations, and discussion with primary team, consultants, pharmacy, nutrition, physical therapy, case management, charge nurse, critical care nursing, and respiratory therapy.
Data:
CT abdomen/pelvis without contrast 05/07/2024:
CT findings are highly suspicious for a cecal volvulus with significant dilatation of the superiorly flipped cecum containing an air-fluid level, twisting of the central abdominal mesentery, and collapse of the colon distal to the cecum.
--- NOTE | 2024-05-08 09:09 | W.CON.NEPH ---
Consultation
-
Date/Time Consultation Requested: 05/08/24 0700
Date/Time Consultation Performed: 05/08/24 0900
Requesting Provider: Dr. Gutierrez
Performing Provider: Dr Lawson
Reason for Consultation: ESRD
Medical History
-
Chief Complaint: Abdominal pain
History of Present Illness:
This is a 68-year-old gentleman who has end-stage liver disease due to alcoholism, ESRD on dialysis Fridays via a left AV fistula, Diazemuls type II on insulin therapy, hypertension multidrug regimen. He resides at [facility]
long term. He receives dialysis Fridays and has had no current issues on Wednesday. He was sent to emergency room because of abdominal pain. Imaging study showed a cecal volvulus. He was then taken to the operating room
emergently for exploratory laparotomy. He was found to have a necrotic cecum and underwent open ileocecostomy. He is on the ICU on the ventilator but without pressors. We are asked to assist with management of his dialysis.
Past Medical History
ESRD, left AV fistula, hypertension, diabetes mellitus type 2, dementia, ESLD
Social History
Tobacco: Non-Smoker
Alcohol: Former
Allergies / Home Medications
Allergy/AdvReac Type Severity Reaction Status Date / Time
tuberculin, purified protein Allergy Unknown Unknown Verified 05/07/24 14:31
deriva
�Medication �Instructions �Recorded �Confirmed �Type
acetaminophen 325 mg tablet 650 mg PO Q6HPRN PRN MILD PAIN 06/08/22 05/07/24 History
bisacodyl 10 mg rectal suppository 10 mg [place] DAILYPRN PRN IF MOM IS 06/08/22 05/07/24 History
INEFFECTIVE
calcium 500 mg (as 1 tab PO DAILY Supplement 06/08/22 05/07/24 History
carbonate)-vitamin D3 5 mcg (200
unit) tablet
donepezil 10 mg tablet (Aricept) 10 mg PO HS Mental Health/Anxiety 06/08/22 05/07/24 History
famotidine 20 mg tablet (Pepcid) 20 mg PO BID Gastrointestinal issue 06/08/22 05/07/24 History
fluoxetine 10 mg capsule (Prozac) 10 mg PO DAILY Mental 06/08/22 05/07/24 History
Health/Anxiety
hydralazine 50 mg tablet 50 mg PO TID Blood pressure 06/08/22 05/07/24 History
yzcgjp-aevjwvaa-bezgiyd 1 cap PO MEALS Kidney Disease 06/08/22 05/07/24 History
5,000-17,000-24,000 unit capsule,
delayed rel (Zenpep)
nifedipine 90 mg tablet,extended 90 mg PO BID Blood pressure 06/08/22 05/07/24 History
release 24 hr (Procardia XL)
sorbitol 70 % solution 30 ml PO DAILYPRN PRN CONSTIPATION 06/08/22 05/07/24 History
pantoprazole 40 mg granules 40 mg PO DAILY #30 ea 06/12/22 05/07/24 Rx
delayed-release for susp in packet
(Protonix)
clonidine HCl 0.1 mg tablet 0.1 mg PO BIDPRN PRN SBP>170 10/12/23 05/07/24 History
cholecalciferol (vitamin D3) 25 50 mcg PO DAILY 04/19/24 05/07/24 History
mcg (1,000 unit) tablet
insulin glargine 100 unit/mL (3 7 unit SC HS Diabetes 04/19/24 05/07/24 History
mL) subcutaneous pen (Lantus
Solostar U-100 Insulin)
insulin lispro 100 unit/mL 2 unit SC AC 04/19/24 05/07/24 History
subcutaneous pen (Humalog KwikPen
(U-100) Insulin)
latanoprost 0.005 % eye drops 1 drp BOTH EYES HS 04/19/24 05/07/24 History
nystatin 100,000 unit/mL oral 0 ml mucous membrane BID 04/19/24 05/07/24 History
suspension
ondansetron HCl 4 mg tablet 4 mg PO Q8HPRN PRN nausea with 04/19/24 05/07/24 History
dialysis
sevelamer carbonate 800 mg tablet 800 mg PO MEALS 04/19/24 05/07/24 History
(Renvela)
sodium polystyrene sulfonate 15 15 g PO DAILYPRN PRN missed 04/19/24 05/07/24 History
gram/60 mL oral suspension dialysis day
B-complex with vitamin C 1 tab PO DAILY 05/07/24 05/07/24 History
Review of Systems
-
No chest pain or shortness of breath. Intubated but awake
All other systems: Negative unless noted
Physical Exam
Vital Signs
Vital Signs
Temp Pulse Resp BP Pulse Ox
99.7 F 59 16 205/75 100
05/08/24 07:39 05/08/24 06:00 05/08/24 06:00 05/07/24 17:04 05/08/24 07:18
Lab Results
WBC 10.8 10^3/uL (4.8-10.8) 05/08/24 04:07
RBC 3.03 10^6/uL (4.70-6.10) L 05/08/24 04:07
Hgb 9.2 g/dL (13.0-18.0) L 05/08/24 04:07
Hct 25.8 % (39.0-52.0) L 05/08/24 04:07
Plt Count 144 10^3/uL (130-400) 05/08/24 04:07
Sodium 143 mmol/L (135-145) 05/08/24 04:07
Potassium 4.3 mmol/L (3.5-5.1) 05/08/24 04:07
Chloride 104 mmol/L (98-107) 05/08/24 04:07
Carbon Dioxide 19 mmol/L (22-30) L 05/08/24 04:07
BUN 75 mg/dl (9-20) H 05/08/24 04:07
Creatinine 11.0 mg/dL (0.7-1.3) H* 05/08/24 04:07
eGFR 4.61 05/08/24 04:07
Glucose 173 mg/dl (70-99) H 05/08/24 04:07
Calcium 10.1 mg/dl (8.4-10.2) 05/08/24 04:07
Phosphorus 4.6 mg/dl (2.5-4.5) H 05/08/24 04:07
Albumin 4.8 g/dl (3.5-5.0) 05/07/24 13:54
Laboratory Tests
04/19/24 05/08/24
21:20 04:07
Hgb 8.0 L
Potassium 3.4 L
Carbon Dioxide 27
Lactic Acid 2.6 H
Physical Exam
Patient is awake alert oriented and in no distress. Mood and affect were pleasant, insight and judgment were good. Pupils are equal round and reactive to light, extraocular movements are intact, sclera were anicteric. Hearing was normal, ears and
nose are intact. Oropharynx was clear. Neck was supple with trachea midline and no thyromegaly. Heart was regular rate and rhythm without rubs. Lower extremities without edema. Lungs were clear to auscultation bilaterally and with normal
excursion. Abdomen was soft, nontender, with decreased bowel sounds, and no hepatosplenomegaly. Skin was without rash and with normal turgor. Left upper arm AV fistula with good thrill and bruit
Assessment/Plan
-
Assessment
ESRD
Ileocecectomy for cecal volvulus
Hypertension
VDRF
Diabetes mellitus type 2
Plan
HD today
RYAN on dialysis
No heparin on dialysis
SBT
Follow lactate level
Check LDH
[2024-05-08] MEDS: HEPARIN SC (09:10)
--- NOTE | 2024-05-08 09:14 | W.PN.NEPH.HD ---
Assessment
-
Seen on HD. no complaints. VSS< access ok
Progress Note - Hemodialysis
-
Date of Service: May 08, 2024
Duration: 30 minutes and 3 hours
Potassium Bath: 2
Calcium Bath: 2.5
Opti-Dialyzer: 160
Ultrafiltration: Other (1 kg)
Blood Flow: 400
Dialysate Flow: 600
Heparin: 0
EPO: 4000 units
[2024-05-08 09:32] LABS: Glycohemoglobin (HgbA1c) 5.3 % (4.0-5.6)
[2024-05-08] MEDS: RETACRIT 4000 UNITS IV (10:04)
[2024-05-08] MEDS: FLEXBUMIN 25% FOR HEMODIALYSIS 12.5 GRAMS IV (10:13)
--- NOTE | 2024-05-08 11:05 | W.PN.GS2 ---
Today's Communication / Plan
-
SBT, extubation per primary
Continue NG tube to low intermittent wall suction, awaiting return of bowel function
IHD MWF
Keep Robles until POD #2
Assessment / Plan
-
This is a 68-year-old male with a history of dementia who presented [facility] our hospital [facility] with abdominal pain found to have cecal volvulus on CT and was taken emergently to the OR for exploration. POD #1 open ileocecectomy. Remains
intubated and sedated in the ICU.
Overall he seems to be progressing well, I do expect his lactate to take some time to clear given the degree of cirrhosis seen intraoperatively (he does have a history of drinking)
SBT per ICU, wean vent as able
Appreciate nephrology consult, patient is on IHD MWF
Anticipate removing Robles
Time Spent
Total Time Spent with Patient (in minutes): 20
Subjective Data
-
Date of Service: May 08, 2024
Interval Events:
No acute events overnight. Remains intubated and sedated. Vent setting stable, no pressors
Objective Data
-
Intake and Output
05/07/24 05/08/24 05/09/24
06:59 06:59 06:59
Intake Total 138.4 / 146.9 34.0 / 34.0
Output Total 70 / 70 0 / 0
Balance 68.4 / 76.9 34.0 / 34.0
Intake:
Oral fluids 0 / 0 0 / 0
IV fluids (Total) 88.4 / 96.9 34.0 / 34.0
Diprivan 48.4 / 51.9 14.0 / 14.0
Fentanyl 40 / 45 20 / 20
IV piggybacks 50 / 50 0 / 0
Output:
Urine, Robles 70 / 70 0 / 0
Vital Signs
Temp Pulse Resp BP Pulse Ox
99.7 F 72 14 205/75 100
05/08/24 07:39 05/08/24 10:30 05/08/24 10:30 05/07/24 17:04 05/08/24 10:15
Lab Results
05/08/24 04:07
05/08/24 04:07
Calcium 10.1 mg/dl (8.4-10.2) 05/08/24 04:07
Phosphorus 4.6 mg/dl (2.5-4.5) H 05/08/24 04:07
Magnesium 2.2 mg/dl (1.6-2.3) 05/08/24 04:07
Total Bilirubin 0.8 mg/dl (0.2-1.3) 05/07/24 13:54
AST 28 U/L (17-59) 05/07/24 13:54
ALT 16 U/L (0-50) 05/07/24 13:54
Alkaline Phosphatase 69 U/L (38-126) 05/07/24 13:54
Total Protein 8.1 g/dl (6.3-8.2) 05/07/24 13:54
Albumin 4.8 g/dl (3.5-5.0) 05/07/24 13:54
Physical Exam
-
GENERAL/NEURO: Intubated and sedated, but following commands
CHEST: Unlabored breathing on vent
ABDOMEN: Soft, Non-Tender, Non-Distended
[2024-05-08] MEDS: NOVOLOG FLEXPEN-MODERATE RESISTANCE SC ×3 (11:30→23:21)
[2024-05-08 12:12] LABS: Glucose - Point of Care 102 mg/dl (70-99)
--- NOTE | 2024-05-08 12:29 | PTCARENOTE ---
Addendum entered by Nadeem Payne RN 05/08/24 14:39:
Pt was unable to stay awake during initial SBT. Reattempted at 13:15, however pt was again falling asleep. Third attempt at 14:15 successful, pt has been maintaining wakefulness, following commands and nodding appropriately. Pt lifting head off
pillow and demonstrating agreement and understanding of plan.
Original Note:
HD completed, 0.5L off. SBT started at 12:30 per MD order. Pt continues nodding appropriately and following commands, safe environment maintained.
--- NOTE | 2024-05-08 13:23 | OR.RPT ---
Operative Report
Operative Report
Patient Name: Jules Land
: 1955
Date of Operation: 05/07/2024
Preoperative Diagnosis: Cecal volvulus
Postoperative Diagnosis: Cecal volvulus, necrotic cecum
Procedure(s):
1. Exploratory laparotomy
2. Open ileocecectomy with ileocolic anastomosis
Surgeon(s):
Dr. Gray
Software Educator(s):
None
Anesthesia: General
Estimated Blood Loss: 11 cc
Urine Output: (see anesthesia records)
Drains/Lines/Implants: None
Specimens: Ileocecectomy
Indication for surgery:
This is a 68-year-old male with a history of dementia, ESRD on HD MWF, hypertension, diabetes, former EtOH abuse who presents through the ED from his SNF for severe abdominal pain. CT scan showing cecal volvulus. On exam his abdomen was firm and
tender with a significant asymmetry. After discussion risk benefits and alternatives including nonoperative/palliative care with his brother Joey who lives in [place] and is his POA we elected to move forward with emergent surgery.
Operative Findings: Markedly dilated and necrotic cecum that was volvulized around its mesentery x 2. The small bowel was ligated and the ileocolic pedicle was clamped to prevent cytokine release once the cecum was detorsed. The white line of
Toldt was incised and the right colon was medialized up to the hepatic flexure. After removal of the specimen and end to end, functional [id number] stapled ileocolonic anastomosis was made using an 80 purple JENSEN stapler. In total 4 staple loads
were used. The mesentery was closed, 2 crotch stitches were placed and the staple line was oversewn all with 3-0 silk sutures. The abdomen was irrigated out with a liter of warm saline but there was minimal to no contamination. The midline was
closed with x2 0 PDS sutures anchored at each apex and tied in the middle using half centimeter bites with half centimeter advancement. The skin was closed with richy. An NG tube placed preoperatively in the ED was confirmed to be in proper
positioning intraoperatively, and a 16 Kinyarwanda Robles was placed at the start of the procedure. 1 g of TXA during the case was given as there was some superficial oozing around the patient's markedly cirrhotic liver.
Details of the operation:
The patient was brought to the operating room and positioned supine on the operating table. General anesthesia was induced, followed by successful endotracheal intubation. An NG tube had already been placed preoperatively in the ED. A 16 Kinyarwanda
Robles catheter was placed by the circulating nurse. The abdomen was prepped and draped in the usual fashion. A timeout was performed confirming the patient's name, procedure and that appropriate preoperative medications been given. A generous
periumbilical vertical midline incision was made and the abdomen was entered safely. A large Ja wound retractor was placed in the abdomen to protect the soft tissues and provide retraction. A very dilated and necrotic appearing cecum was
readily identified and clearly volvulized around a long ileocolic pedicle. To prevent sudden cytokine release, I clamped and ligated the ileocolic pedicle before detorsing the cecum. The terminal ileum appeared healthy up to the ileocecal valve
and so a window was made in the mesentery here and the small bowel was divided. I then turned my attention to the white line of Toldt which was incised and we medialized the right colon off of the underlying retroperitoneum all the way up to the
hepatic flexure. There was a significant amount adhesions overlying very cirrhotic appearing liver which were taken down using bipolar energy device. The hepatic flexure was taken down to allow good mobilization of the right colon which was fairly
foreshortened. Healthy portion of the right colon was identified and after making a hole in the mesentery the right colon was divided using an 80 purple load on a JENSEN stapler. The remaining mesentery of the cecum was divided using the bipolar
energy device and the specimen was passed off the field. There was some fibrinous exudate and fluid in the abdomen but there was no spillage of gastrointestinal contents and there was no abscess or perforation noted. We then began fashioning our a
tynn-uc-leko, functional end-to-end stapled anastomosis by making an enterotomy on the antimesenteric side of both the small bowel and the right colon. An 80 purple load Endo JENSEN stapler was advanced and fired. The common enterotomy was then
stapled off with the anastomotic staple line offset and fired using another 80 purple load. The common enterotomy staple line was then oversewn using interrupted 3-0 silk sutures. 2 crotch stitches were placed to take the tension off of the
anastomotic staple line. The mesenteric defect was also closed with a running 3-0 silk suture. Our gloves were changed and the abdomen was then irrigated with warm saline and suctioned until dry. There was some bleeding from the surface of a very
cirrhotic appearing liver which stopped with administration of 1 g of TXA as well as cautery and packing. The patient's NG tube was confirmed to be in good position in the mid body of the stomach. Bilateral tap blocks were performed using 30 cc of
quarter percent Marcaine with epinephrine placed in discrete points along the transversus abdominis muscle under direct visualization. Satisfied, we then turned closing his abdomen using 0 P[address] suture on a CT 2 needle anchored at each apex and run
to the middle taking 0.5 cm bites with 0.5 cm advancement. The subcutaneous tissue was then irrigated out and the skin was loosely approximated using skin richy. The incision was then closed with an Aquacel wound dressing. All counts were
correct at the end of procedure x2. The patient tolerated the procedure and was transferred to the ICU intubated and sedated for further recovery.
I was the attending physician and performed the procedure with no assistance. I was present for all portions of the case
Michael Gray MD
--- NOTE | 2024-05-08 14:07 | CM ---
CM is following with discharge planning.
Discussed in Rounds, reviewed pt's chart, met with pt.
Pt is a 68 year old male, admitted with primary dx of Acute respiratory failure with hypoxia on mechanical ventilation. Cecal volvulus s/p ex lap with open ileocecectomy (OR date: 05/07/2024). Patient remains intubated on mechanical ventilation
Pt is a alf care resident at [facility], on HD MWF, has supportive brother Joey. Per [facility] admissions pt gets around on a wheelchair, on Medicaid 15 day bed hold.
PCP: Taiwo Yoo
Pharmacy: [facility]
D/C plan: Return back to [facility] when medically stable.
CM will follow with discharge plan updates as hospitalization progresses
[2024-05-08 15:23] LABS: B.E. 5.6 mmol/L; HCO3 29.8 mmol/L (21-28); O2 Saturation % 99.5 % (94-98); PCO2 41 mmHg (35-48); PO2 173 mmHg (83-108); pH 7.47 (7.35-7.45)
--- NOTE | 2024-05-08 15:45 | PTCARENOTE ---
ABG results communicated with nurseryperson Dr. Lamas, arrived to bedside to assess pt. Per orders, pt extubated to CAM at 15:45. Right radial [place] dc'd at this time per orders. Pt does complain of 8/10 abd pain at surgical site. Orders rec'd for
pain medication at this time.
[2024-05-08] MEDS: DILAUDID 0.25 MG IV (16:16)
[2024-05-08] MEDS: NICODERM TRANSDERMAL 14 MG TRANSDERM (16:25)
[2024-05-08 17:20] LABS: Glucose - Point of Care 153 mg/dl (70-99)
[2024-05-08] MEDS: DILAUDID 0.5 MG IV ×2 (19:28→23:27)
[2024-05-08] MEDS: NSS (PRESERVATIVE FREE) 8 ML IV (19:28)
[2024-05-08] MEDS: PEPCID 20 MG IV (19:29)
[2024-05-08] MEDS: THIAMINE INJECTION 200 MG IV (19:29)
--- NOTE | 2024-05-08 20:11 | PTCARENOTE ---
report received. assessments per work list. patient with increased verbal and non verbal pain cues. medicated with dilaudid per prn order.oriented to person, able to state date. forgetful. has intermittent hiccoughs. materials branch chief GENEVA informed.
no new orders at this time. ngt placement verified. maintained to low intermittent suction, draining green fluid. anuric. Robles removed. left av fistula with good thrill and bruit. abdomen soft, hypoactive bowel sounds. dressing in place mid
abdomen. lungs with coarse breath sounds. coughing and deep breathing encouraged. call ramirez in hand, bed alarm activated
[2024-05-08] MEDS: LANTUS 0.1 UNITS SC (21:28)
[2024-05-08 21:37] LABS: Glucose - Point of Care 128 mg/dl (70-99)
[2024-05-08 23:31] LABS: Glucose - Point of Care 109 mg/dl (70-99)
--- NOTE | 2024-05-08 23:37 | PTCARENOTE ---
patient reassessed. lungs with coarse rhonchi anteriorly, diminished posteriorly. medicated with Dilaudid for pain. coughing and deep breathing encouraged, assisted to use I/S
[2024-05-09] VITALS (12 sets, daily range): BP systolic 110–134; BP diastolic 42–71; BMI 18.9
[2024-05-09] MEDS: ZOSYN 50 IV ×3 (01:24→17:46)
[2024-05-09 03:16] LABS: % Basophils 0.7 % (0-2); % Eosinophils 0.3 % (0-6); % Immature Granulocytes 0.5 % (0-0.5); % Lymphocytes 10.7 % (20.5-51.1); % Monocytes 5.9 % (1.7-9.3); % Neutrophils 81.9 % (42.2-75.2); Absolute Basophils 0.1 10^3/uL (0-0.2); Absolute Lymphocytes 0.8 10^3/uL (1.2-3.4); Absolute Monocytes 0.4 10^3/uL (0.1-0.6); Hematocrit 26.3 % (39.0-52.0); Mean Corp Hgb Conc. 34.2 g/dL (33.0-37.0); Mean Corpuscular Hgb 29.6 pg (27.0-31.0); Mean Corpuscular Volume 86.5 fL (80.0-94.0); Mean Platelet Volume 10.2 fL (7.4-10.4); Nucleated Red Blood Cells % 0 % (-); Platelet Count 132 10^3/uL (130-400); Red Blood Cell Count 3.04 10^6/uL (4.70-6.10); Red Cell Dist. Width 15.6 % (11.5-14.5); White Blood Cell Count 7.3 10^3/uL (4.8-10.8)
[2024-05-09] MEDS: DILAUDID 0.5 MG IV ×2 (03:24→08:50)
[2024-05-09 03:29] LABS: Lactic Acid 1.2 mmol/L (0.7-2.0)
--- NOTE | 2024-05-09 03:35 | PTCARENOTE ---
patient reassessed. moist cough, able to orally suction post coughing and deep breathing for large amount thick white sputum. rhonchi unchanged. patient oriented to person and place 'medical building'. asking where his 'money' is. able to reorient.
remains forgetful. ngt draining green fluid. pulse oximeter 94-99 on room air. care provided, labs sent. medicated with prn dose Dilaudid for pain. call ramirez in reach, bed alarm maintained.
[2024-05-09 04:17] LABS: Blood Urea Nitrogen 54 mg/dl (9-20); Calcium 9.6 mg/dl (8.4-10.2); Carbon Dioxide 29 mmol/L (22-30); Chloride 95 mmol/L (98-107); Estimated Creatinine Clearance 8 ml/min; Glucose 119 mg/dl (70-99); Magnesium 2.1 mg/dl (1.6-2.3); Phosphorus 6.3 mg/dl (2.5-4.5); Potassium 3.9 mmol/L (3.5-5.1); Sodium 140 mmol/L (135-145); eGFR 7.94
[2024-05-09 04:44] LABS: LDH 567 U/L (120-246)
[2024-05-09 04:46] LABS: Hepatitis B Surface Antigen Negative (Negative)
[2024-05-09] MEDS: NOVOLOG FLEXPEN-MODERATE RESISTANCE SC ×3 (05:07→17:46)
[2024-05-09 05:15] LABS: Glucose - Point of Care 109 mg/dl (70-99)
[2024-05-09] MEDS: NICODERM TRANSDERMAL 14 MG TRANSDERM (08:05)
[2024-05-09] MEDS: HEPARIN 5000 UNITS SC ×2 (08:06→15:33)
[2024-05-09] MEDS: THIAMINE INJECTION 200 MG IV ×2 (08:06→20:03)
--- NOTE | 2024-05-09 08:08 | W.PN.INTV ---
Today's Communication / Plan
Recommendations
Up OOB as tolerated
NGT clamped - he later removed this NGT himself; surgery said ok to leave out and monitor for increased pain and/or nausea/vomiting, in which case we will replace
Encourage IS use
Maintain SpO2 >90-94%
Pt has no known Hx of TB or severe PNA to explain MADISON scarring --> CXR findings are stable; no additional radiographic follow up needed
Patient is stable for downgrade out of ICU to telemetry, which was confirmed with surgery. No additional pulmonary recommendations at this time. Video Control Operator/Pulmonary service will now sign off. Please reconsult if there are any additional
questions/concerns, or if patient's respiratory status deteriorates.
Assessment
-
Assessment: 68-year-old male with a past medical history of ESRD on HD, hypertension, dementia, EMEA and DM type II who presented with abdominal pain for few days. He also had nausea/vomiting. Multiple abdominal XR DOG RAISER showed possible obstruction
versus volvulus. Patient arrived to the ER moaning in pain and holding his belly and had a large soft formed BM in diaper. Abdomen also was apparently rigid. CT abdomen/pelvis performed showing cecal volvulus with significant dilatation of the
superiorly flipped cecum containing an air-fluid level. Surgery consulted and an exploratory laparotomy with open ilio sick ectomy was performed. There were no immediate complications with EBL 11 cc. Patient was transferred to the ICU and
remained intubated and template inspector services consulted for additional management/recommendations.
Chronic conditions DOG RAISER: ESRD on HD, hypertension, anemia, dementia, DM type II, history of depression, liver disease, history of colitis, history of hepatitis A, amatory dysfunction, glaucoma, history of alcohol abuse, GERD
Impression:
#Acute respiratory failure with hypoxia requiring mechanical ventilation post-operatively now extubated as of 05/08/2024
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
#Acute on chronic anemia (Hb ranged between 14-15.5 in 2021)
#Mild thrombocytopenia
#Respiratory alkalosis
#Metabolic acidosis with normal anion gap (due to renal failure with sCr: 11, BUN: 75) - acidosis now resolved s/p HD
#Lactic acidosis - now resolved
#Abnormal urinalysis suspicious for UTI with +2 leukocyte esterase and >100 urine WBC
#Dementia
#DM type II
#ESRD on HD
#Hypertension
#Chronic left upper lobe volume loss with traction bronchiectasis, apical cystic airspace disease with peribronchial thickening
#Tobacco use disorder
#Alcohol use disorder
Plan:
- Patient remained intubated on mechanical ventilation post-operatively, and was successfully extubated on 05/08/2024 and is now on room air breathing comfortably with SpO2 100%
- Maintain SpO2 >90-94%
- His CXR shows stable pleural parenchymal scarring in the left upper lobe with no superimposed acute abnormalities - continue to monitor (stable per CXR this AM)
- Patient denies a history of severe pneumonia vs tuberculosis hence unclear etiology for his MADISON scarring; CXR findings stable hence no need for additional radiographic surveillance at this time
- Continue with postoperative care as per general surgery
- Keep NPO until cleared for diet by surgery
- Follow up cecum pathology from the OR
-There was increased free air under the left hemidiaphragm via CXR this morning; subsequent CT abdomen/pelvis without contrast today showed large amount of free air in the upper abdomen with no free fluid seen --> I discussed the CT findings with
surgery with both Dr. Gray and Dr. Owens - clinically he is not presenting as a perforation and this free air is likely post-operative related
- No additional imaging needed at this time; if future suspicion arises for perforation then would perform CT abdomen/pelvis with oral contrast (water-based)
- Pain control; serial abdominal exams
- Nicotine patch
- He admitted to the ER that he drinks alcohol 'sometimes,' but given he lives in a NH this is doubtful
- No need for MSAS
- Continue thiamine + folate
- Pain control
- No longer need to trend lactate as last level was <2mmol/L
- Maintain MAP>65
- Given his surgery and unable to give PO meds, transition PO meds to IV when able to; he takes clonidine BID prn, and we looked into this and he takes it few times a week as per his NH MAR; no need for Catapres at this time
- Continue with broad spectrum Abx - currently on Zosyn
- Follow-up blood cultures (collected 05/08/2024 - NGTD)
- Urine Cx is growing Proteus --> follow up sensitivities
- Replete electrolytes with K>4, Mg>2
- Maintain euglycemia with goal BG 140-180
- Trend H/H and transfuse if needed to keep Hb>7g/dL; keep plt>50k (given his post-operative status)
- prn nebulized bronchodilators - not currently bronchospastic
- DVT ppx: HSQ
Patient is stable for downgrade out of ICU to telemetry, which was confirmed with surgery. No additional template inspector/pulmonary recommendations at this time. Video Control Operator/Pulmonary service will now sign off. Thank you for allowing us to be involved
in the care of this patient. Please reconsult if there are any additional questions/concerns, or if patient's respiratory status deteriorates.
Data:
CT abdomen/pelvis without contrast 05/07/2024:
CT findings are highly suspicious for a cecal volvulus with significant dilatation of the superiorly flipped cecum containing an air-fluid level, twisting of the central abdominal mesentery, and collapse of the colon distal to the cecum.
CT Abd/Pelvis without contrast 05/09/2024:
Large amount free air mostly in the upper abdomen as described above. This appears more than expected for post operative air. However not excluded. Bowel perforation certainly is in the differential. Clinical correlation recommended
Moderate sized gallstones - Stable
Bilateral simple renal cysts - Stable
2 mm nonobstructing right renal stone - Stable
Severe atherosclerotic vascular disease - Stable
Postsurgical change - New
Moderate diffuse bladder wall thickening. This may be partially due to limited distention. Cystitis and bladder outlet obstruction cannot be excluded - Stable
Total time spent today was 76 minutes for this encounter. Time includes reviewing laboratory test/imaging results, reviewing pertinent medical records, obtaining and reviewing medical history, performing an appropriate exam, ordering medications,
tests and procedures. Time also includes documentation of this encounter, coordinating patient care and communicating with other healthcare professionals. Total time does not include separately billed tests performed on this date of service.
Subjective Dataa
Subjective Data
Date of Service:
Date of Service: May 09, 2024
Chief Complaint: Video Control Operator Follow Up
Subjective:
Patient seen and evaluated this AM. He has some mild abdominal pain controlled on Dilaudid. Heart rate 64, BP 134/63, and saturating 100% on room air. He denies chest pain, SOB, DOSS, diarrhea, fevers or chills. NGT was clamped this morning.
Review of Systems
General: Other (Limited given his Hx of dementia)
Objective Data
Data Reviewed
Vital Signs / I&O / Oxygen:
Vital Signs
Temp Pulse Resp BP Pulse Ox
99 F 66 24 134/63 100
05/09/24 08:04 05/09/24 10:03 05/09/24 10:03 05/09/24 10:03 05/09/24 08:30
Intake and Output
05/08/24 05/09/24 05/10/24
06:59 06:59 06:59
Intake Total 138.4 / 146.9 197.5 / 197.5 100 / 100
Output Total 70 / 70 440 / 440
Balance 68.4 / 76.9 -242.5 / -242.5 100 / 100
SaO2 [A/C] 100
SaO2 100
Nasal Cannula flow liters per 4
minute
Physical Exam
General: Respiratory Distress (negative), Chills (negative) and Sweats (negative)
HEENT: Normocephalic and Anicteric
Cardiovascular: S1-S2, Rub (negative) and Peripheral Edema (negative)
Respiratory: Wheeze (negative), Crackles (left upper lobe), Rhonchi (negative) and Non-Labored Respirations
GI: Soft, Non Distended, Tender (diffusely tender to light palpation), NG Tube (clamped as of today (05/09/2024)) and Other (hypoactive BS)
Neurology: Awake, Alert and Tremors (negative)
Skin: Warm, Dry, Cyanosis (negative) and Jaundice (negative)
Labs/Micro/Reports
Lab Data
05/09/24 03:00
05/09/24 03:00
Laboratory Results
05/08/24
15:16
pH 7.47 H
pCO2 41
pO2 173 H
HCO3 29.8 H
O2 Delivery Level
Microbiology
05/08/24 01:30 Urine Urine Culture - Preliminary
Proteus species
05/08/24 04:07 Nose MRSA Screen - Final
No Methicillin Resistant Staphylococcus aureus isolated.
05/08/24 01:32 Blood/Venous Blood Culture - Preliminary
No Growth in 24 hours- Final report to follow
05/08/24 01:28 Blood/Venous Blood Culture - Preliminary
No Growth in 24 hours- Final report to follow
--- NOTE | 2024-05-09 08:08 | W.PN.HOSP.TC ---
Today's Communication/Plan
-
clamping trial later today.
Assessment / Plan
Assessment / Plan
ASSESSMENT/PLAN
# Sepsis POA secondary to Cecal Volvulus
#s/p Exploratory Laparotomy and open ileocecectomy with necrotic cecum 05/07/24
-Extubated 05/08
-continue NG tube to low intermittent wall suction.
-Keep N.P.O
-Continue on Zosyn
-Surgery following
#Essential HTN with HTN Emergency present on Admission
-Pain control as needed
-Hydralazine PRN
-Monitor BP.
#ESRD on HD
-Nephrology consulted.
-HD tomorrow
#T2DM
-Continue Lantus.
-Hold premeal insulin due to NPO
-SSI coverage
DVT ppx- Heparin SubQ
CODE STATUS- Full code.
Anticipated Discharge: 24 - 48 hours
Subjective/Interval History
-
Date of Service: May 09, 2024
Objective Data
-
Labs:
Laboratory Results
05/09/24
03:00
WBC 7.3
Hgb 9.0 L
Hct 26.3 L
Plt Count 132
Sodium 140
Potassium 3.9
Chloride 95 L
Carbon Dioxide 29
BUN 54 H
Creatinine 7.0 H*
Glucose 119 H
Calcium 9.6
Vital Signs:
Vital Signs
Temp Pulse Resp BP Pulse Ox
99 F 60 21 128/46 98
05/09/24 08:04 05/09/24 08:00 05/09/24 08:00 05/09/24 08:00 05/09/24 08:04
I&O
05/08/24 05/09/24 05/10/24
06:59 06:59 06:59
Intake Total 138.4 / 146.9 197.5 / 197.5
Output Total 70 / 70 440 / 440
Balance 68.4 / 76.9 -242.5 / -242.5
Review of Systems
-
All other systems: Reviewed and negative (except as documented. )
Physical Exam
-
General: No Apparent Distress
Respiratory: Negative Wheezes
Cardiac: S1/S2
GI: Soft, Nondistended, Normal Bowel Sounds and Tender (moderate tenderness to palpation)
Musculoskeletal: No Edema
--- NOTE | 2024-05-09 08:19 | W.PN.UPDATE ---
Update Note
Progress Note Update
I saw and evaluated the patient. I reviewed the resident�s note and agree with findings and plan as documented in the resident�s note.
Mild abd pain, passing gas.
Gen: NAD, awake and alert, NCTA
Eyes: EOMI, PERRLA, no scleral icterus.
Neck: supple.
CV: RRR, +S1/S2, no m/r/g.
Resp: CTAB anteriorly, no rales, wheezes, or rhonchi.
Abd: +BS, soft, diffuse tenderness to light palpation (improved from yesterday), ND
Skin: No rashes.
Neuro: CN 2-12 intact
Psych: calm
CT A/P (no contrast): highly suspicious for a cecal volvulus with significant dilatation of the superiorly flipped cecum containing an air-fluid level, twisting of the central abdominal mesentery, and collapse of the colon distal to the cecum.
CXR 05/08/24AM: There is gas beneath the right hemidiaphragm which I favor is cecal volvulus with dilated cecum as seen on 05/07/2024 CT examination. Free intraperitoneal air is less likely, however, clinical correlation is recommended. The tip of
the endotracheal tube is in satisfactory position There is moderate stable pleural parenchymal scarring in the upper left lung. There are no superimposed acute pulmonary abnormalities.
Sepsis, POA, due to acute cecal volvulus:
-Patient went for emergent surgery, exploratory laparotomy and open ileocecectomy with ileocolic anastomosis 05/07/24
-extubated 05/08/24
-NPO. case discussed with surgery. Likely clamping trial later today.
-cont Zosyn
Essential hypertension with hypertensive emergency:
-Hydralazine PRN
-once able to take PO, resume home PO antihypertensives
Other problems:
ESRD: cont HD as per renal
h/o cholelithiasis
DM2: cont Lantus/SSI/accuchecks
FULL/Heparin
--- NOTE | 2024-05-09 08:30 | PTCARENOTE ---
Pt rec'd from film processing shift supervisor, AOx2-'[place]' but knows [facility], confused to time 'January 2027,' no immediate complaint of pain at this time. Pleasant and cooperative with care. VSS, lungs sounds coarse left base, moist productive cough, clear sputum
suctioned orally. Pt with intermittent hiccups again this morning. NGT via left nare to LIS, green bilious output, hypo BS auscutated. Pt states he is thirsty, education provided. Oral hygeine care provided with suction toothbrush. Robles catheter
was removed by previous RN, pt anuric. HD orders for tomorrow per Intake Specialist. Midline abd incision with post op dressing remaining intact, slight shadowing noted-no progression from prior assessment. Pt assisted oob x2 RNs, seated in chair with
air cushion in place. Pt requiring moderate assist with encouragement for transfer. PRN pain medication provided per patient's request after transfer up to chair. Per surgery, NGT was clamped at 09:10. Plan of care discussed with Drs. Alicea,
Graciela Lamas and Lulu. Safe environment maintained.
[2024-05-09] MEDS: FOLVITE 50.2 MG IV (08:49)
--- NOTE | 2024-05-09 08:50 | W.PN.NEPH.PH ---
Today's Communication / Plan
-
HD tomorrow
Assessment/Plan
-
Assessment
ESRD
Ileocecectomy for cecal volvulus
Hypertension
VDRF
Diabetes mellitus type 2
Plan
HD tomorrow
RYAN on dialysis
No heparin on dialysis
-
-
Date of Service: May 09, 2024
CC / HPI / ROS
-
Chief Complaint:
ESRD
History of Present Illness:
tolerated HD yesterday
BP stable
NGT in place after ileocecectomy 05/07/24
Review of Systems:
no CP/SOB
Labs
-
Labs:
WBC 7.3 10^3/uL (4.8-10.8) 05/09/24 03:00
RBC 3.04 10^6/uL (4.70-6.10) L 05/09/24 03:00
Hgb 9.0 g/dL (13.0-18.0) L 05/09/24 03:00
Hct 26.3 % (39.0-52.0) L 05/09/24 03:00
Plt Count 132 10^3/uL (130-400) 05/09/24 03:00
Sodium 140 mmol/L (135-145) 05/09/24 03:00
Potassium 3.9 mmol/L (3.5-5.1) 05/09/24 03:00
Chloride 95 mmol/L (98-107) L 05/09/24 03:00
Carbon Dioxide 29 mmol/L (22-30) 05/09/24 03:00
BUN 54 mg/dl (9-20) H 05/09/24 03:00
Creatinine 7.0 mg/dL (0.7-1.3) H* 05/09/24 03:00
eGFR 7.94 05/09/24 03:00
Glucose 119 mg/dl (70-99) H 05/09/24 03:00
Calcium 9.6 mg/dl (8.4-10.2) 05/09/24 03:00
Phosphorus 6.3 mg/dl (2.5-4.5) H 05/09/24 03:00
Albumin 4.8 g/dl (3.5-5.0) 05/07/24 13:54
Physical Exam
-
Vital Signs:
Vital Signs
Temp Pulse Resp BP Pulse Ox
99 F 60 21 128/46 98
05/09/24 08:04 05/09/24 08:00 05/09/24 08:00 05/09/24 08:00 05/09/24 08:04
Cardiovascular:: Regular rate and rhythm
Respiratory:: Bilateral: Coarse
Lung Excursion:: Normal
Abdomen:: Nontender and Soft
Extremity Edema:: None: Bilateral:
[2024-05-09] MEDS: FOLVITE PO (08:59)
--- NOTE | 2024-05-09 09:19 | W.PN.GS2 ---
Today's Communication / Plan
-
-- NGT clamp trial
-- Pain control: Tylenol and IV Dilaudid PRN, avoiding NSAIDs given CKD
-- Abx: Zosyn, would plan for 4 days post-operatively
Assessment / Plan
-
Patient is a 68 yo M p/w cecal volvulus
POD #2 open ileocecectomy.
Extubated 05/08
Recovering well overall. Some early signs of return of bowel function, however, given degree of illness with risks for ileus formation and bilious effluent from NG tube we will plan to advance diet cautiously. Plan for NGT clamp trial throughout
the day today. Put back to suction for symptoms of abdominal pain or nausea. If continued improvement can consider removal this afternoon versus tomorrow and trial of clears.
-- NGT clamp trial
-- Pain control: Tylenol and IV Dilaudid PRN, avoiding NSAIDs given CKD
-- Abx: Zosyn, would plan for 4 days post-operatively
-- OOB/ambulate
-- Medical care per Hospitalist, appreciate help
Subjective Data
-
Date of Service: May 09, 2024
Extubated yesterday (05/08). Reports passing minimal flatus, no BM. No nausea or emesis. Abdominal pain. No fevers.
Objective Data
-
Intake and Output
05/08/24 05/09/24 05/10/24
06:59 06:59 06:59
Intake Total 138.4 / 146.9 197.5 / 197.5
Output Total 70 / 70 440 / 440
Balance 68.4 / 76.9 -242.5 / -242.5
Intake:
Oral fluids 0 / 0 0 / 0
IV fluids (Total) 88.4 / 96.9 42.5 / 42.5
Diprivan 48.4 / 51.9 17.5 / 17.5
Fentanyl 40 / 45 25 / 25
IV piggybacks 50 / 50 100 / 100
Amount instilled into GI Tube ( 55 /
Total)
[place] Sump 55 / 55
Output:
Gastrointestinal tube output ( 440 / 440
Total)
[place] Sump 440 / 440
Urine, [place] 70 / 70 0 / 0
Urine, Voided 0 / 0
Vital Signs
Temp Pulse Resp BP Pulse Ox
99 F 81 17 128/46 98
05/09/24 08:04 05/09/24 09:00 05/09/24 09:00 05/09/24 08:00 05/09/24 08:04
Lab Results
05/09/24 03:00
05/09/24 03:00
Calcium 9.6 mg/dl (8.4-10.2) 05/09/24 03:00
Phosphorus 6.3 mg/dl (2.5-4.5) H 05/09/24 03:00
Magnesium 2.1 mg/dl (1.6-2.3) 05/09/24 03:00
Total Bilirubin 0.8 mg/dl (0.2-1.3) 05/07/24 13:54
AST 28 U/L (17-59) 05/07/24 13:54
ALT 16 U/L (0-50) 05/07/24 13:54
Alkaline Phosphatase 69 U/L (38-126) 05/07/24 13:54
Total Protein 8.1 g/dl (6.3-8.2) 05/07/24 13:54
Albumin 4.8 g/dl (3.5-5.0) 05/07/24 13:54
Physical Exam
-
Gen: NAD
HEENT: minimal bilious output
Abd: soft, tender diffusely, mild distension, non-peritoneal, midline dressing c/d/i
[2024-05-09 11:56] LABS: Glucose - Point of Care 98 mg/dl (70-99)
--- NOTE | 2024-05-09 11:58 | PTCARENOTE ---
Grand rounds with phosphoric acid supervisor team completed, orders rec'd for stat CT abd to r/o perf -pt now back in room , no change in assessment. Pt remains pleasant and cooperative, no pain at this time, joking with staff. Pt asking for food, plan of care
discussed. Seated in chair, watching TV, safe environment maintained.
--- NOTE | 2024-05-09 12:37 | PTCARENOTE ---
Pt pulled out NGT, stated 'I was tired of it.' This info was communicated to surgeon Dr. Owens, who stated to reinsert for worsening pain or nausea. Pt with no complaints at this time, states 'I'm alright.'
[2024-05-09] MEDS: THORAZINE 51 MG IV (12:52)
--- NOTE | 2024-05-09 15:12 | W.PN.SURGUPD ---
Surgical Update
Surgical Update
CT scan without oral contrast obtained earlier today by ICU team due to concerns of continued findings of free air on previous chest x-rays. He has had 2 x-rays postoperatively which have both demonstrated evidence of free air. Current CT scan is
limited by lack of oral contrast. There does appear to be a fairly sizable amount of free air, without any significant ascites/fluid. Afebrile and hemodynamically stable. Labs demonstrate continued normal WBC, stable anemia, improvement in
creatinine, normalization of lactate. Abdominal exam soft with diffuse stable tenderness, mild distention, no clear signs of peritonitis (overall stable from this AM). No reports from nursing of worsening pain, nausea, or vomiting. Patient
reports mild flatus, no reports of bowel movements.
Imaging demonstrating free air does raise concern for possible perforated viscus, however, given signs of clinical improvement over the past 24 to 48 hours would favor that this is more likely a postoperative state at this point in time. Continue
to monitor closely. Trend labs. Serial abdominal exams. If any signs of clinical deterioration he may need repeat exploration. Continue with antibiotics. Patient has removed NGT, recommend replacement for any worsening abdominal pain, nausea,
or vomiting. Operative surgeon has been updated and agrees with plan.
--- NOTE | 2024-05-09 15:31 | CM ---
CM following re: discharge planning.
Reviewed pt's chart, met with pt.
POD #2 open ileocecectomy. Extubated yesterday, continue supportive care.
Pt is a long-term care resident at [facility], on HD MWF, has supportive brother Joey. Per [facility] admissions pt gets around on a wheelchair, on Medicaid 15 day bed hold.
D/C plan: Return back to [facility] when medically stable.
CM will follow with discharge plan updates as hospitalization progresses
--- NOTE | 2024-05-09 16:29 | PTCARENOTE ---
Pt remains stable, no change in assessment. Has been seated up in chair since 08:30 with frequent repositioning. Pt written for telemetry, ready bed [id number] assigned.
--- NOTE | 2024-05-09 17:33 | PTCARENOTE ---
Report given to [address] RN.
[2024-05-09 17:57] LABS: Glucose - Point of Care 102 mg/dl (70-99)
--- NOTE | 2024-05-09 18:44 | PTCARENOTE ---
Pt arrived to 2S via wheelchair, ambulated to bed with nursing staff. Confused but reoriented to room can call ramirez. Instructed to ring for assistance getting OOB. Bed locked and in the lowest position, safety maintained. Call ramirez within reach,
bed alarm engaged.
--- NOTE | 2024-05-09 20:00 | TRANSFER ---
Patient transferred to floor right before change of shift. Dayshift RN admitted patient to floor and assigned tele. Upon initial assessment, patient is AAOx2 - able to state name/, place and reason for hospital visit (abdominal pain). Denies
nausea, denies pain. Will continue to monitor.
[2024-05-09] MEDS: LANTUS 0.1 UNITS SC (22:27)
[2024-05-09 23:50] LABS: Glucose - Point of Care 115 mg/dl (70-99)
[2024-05-10] VITALS (9 sets, daily range): BP systolic 90–191; BP diastolic 42–77; BMI 18.3
[2024-05-10] MEDS: NOVOLOG FLEXPEN-MODERATE RESISTANCE SC ×4 (00:33→18:06)
[2024-05-10] MEDS: HEPARIN 5000 UNITS SC ×4 (00:34→23:27)
[2024-05-10] MEDS: ZOSYN 50 IV ×3 (03:00→18:06)
[2024-05-10 05:44] LABS: % Basophils 0.4 % (0-2); % Eosinophils 1.1 % (0-6); % Immature Granulocytes 0.5 % (0-0.5); % Lymphocytes 11.2 % (20.5-51.1); % Monocytes 7.3 % (1.7-9.3); % Neutrophils 79.5 % (42.2-75.2); Absolute Eosinophils 0.1 10^3/uL (0-0.7); Absolute Lymphocytes 0.8 10^3/uL (1.2-3.4); Absolute Monocytes 0.6 10^3/uL (0.1-0.6); Hematocrit 25.9 % (39.0-52.0); Hemoglobin 8.7 g/dL (13.0-18.0); Mean Corp Hgb Conc. 33.6 g/dL (33.0-37.0); Mean Corpuscular Hgb 29.7 pg (27.0-31.0); Mean Corpuscular Volume 88.4 fL (80.0-94.0); Mean Platelet Volume 10.8 fL (7.4-10.4); Nucleated Red Blood Cells % 0 % (-); Platelet Count 115 10^3/uL (130-400); Red Blood Cell Count 2.93 10^6/uL (4.70-6.10); Red Cell Dist. Width 15.3 % (11.5-14.5); White Blood Cell Count 7.5 10^3/uL (4.8-10.8)
[2024-05-10 06:08] LABS: Glucose - Point of Care 86 mg/dl (70-99)
[2024-05-10 06:16] LABS: Blood Urea Nitrogen 85 mg/dl (9-20); Calcium 9.9 mg/dl (8.4-10.2); Carbon Dioxide 25 mmol/L (22-30); Chloride 96 mmol/L (98-107); Glucose 82 mg/dl (70-99); LDH 298 U/L (120-246); Magnesium 2.4 mg/dl (1.6-2.3); Phosphorus 6.8 mg/dl (2.5-4.5); Potassium 3.8 mmol/L (3.5-5.1); Sodium 140 mmol/L (135-145)
[2024-05-10 06:27] LABS: Estimated Creatinine Clearance 5 ml/min
--- NOTE | 2024-05-10 08:03 | W.PN.HOSP.TC ---
Today's Communication/Plan
-
trial of clears today
Assessment / Plan
Assessment / Plan
ASSESSMENT/PLAN
# Sepsis POA secondary to Cecal Volvulus
#s/p Exploratory Laparotomy and open ileocecectomy with necrotic cecum 05/07/24
-Extubated 05/08. NGT removed 05/09
-Trial of clears today.
-Continue on Zosyn
-Surgery following
#Essential HTN with HTN Emergency present on Admission
-Pain control as needed
-Hydralazine PRN
-Monitor BP.
#ESRD on HD
-Nephrology consulted.
-HD today
#T2DM
-Continue Lantus.
-Hold premeal insulin due to NPO
-SSI coverage
DVT ppx- Heparin SubQ
CODE STATUS- Full code.
Anticipated Discharge: > 48 hours
Subjective/Interval History
-
Patient seen at bedside. Patient states he is passing gas. He reports episode of diarrhea yesterday. He denies acute complaint.
Objective Data
-
Labs:
Laboratory Results
05/10/24
04:19
WBC 7.5
Hgb 8.7 L
Hct 25.9 L
Plt Count 115 L
Sodium 140
Potassium 3.8
Chloride 96 L
Carbon Dioxide 25
BUN 85 H
Creatinine 9.5 H*
Glucose 82
Calcium 9.9
Vital Signs:
Vital Signs
Temp Pulse Resp BP Pulse Ox
98.4 F 73 18 163/63 100
05/10/24 07:59 05/10/24 07:59 05/10/24 07:59 05/10/24 07:59 05/10/24 07:59
I&O
05/09/24 05/10/24 05/11/24
06:59 06:59 06:59
Intake Total 197.5 / 197.5
Output Total 440 / 440
Balance -242.5 / -242.5
Review of Systems
-
All other systems: Reviewed and negative (except as documented)
Physical Exam
-
General: No Apparent Distress
Cardiac: Regular Rhythm and S1/S2
GI: Soft, Nondistended, Normal Bowel Sounds and Tender (mild tenderness to palpation)
Neuro: Awake and Alert
[2024-05-10] MEDS: FOLVITE PO (08:05)
[2024-05-10] MEDS: FLEXBUMIN 25% FOR HEMODIALYSIS 12.5 GRAMS IV ×2 (08:15→10:02)
--- NOTE | 2024-05-10 08:24 | W.PN.UPDATE ---
Update Note
Progress Note Update
I saw and evaluated the patient. I reviewed the resident�s note and agree with findings and plan as documented in the resident�s note.
Denies chest pain, shortness breath, abdominal pain. States he had diarrhea yesterday.
Gen: NAD, awake and alert, NCTA
Eyes: EOMI, PERRLA, no scleral icterus.
Neck: supple.
CV: RRR, +S1/S2, no m/r/g.
Resp: CTAB anteriorly, no rales, wheezes, or rhonchi.
Abd: +BS, soft, nontender to light palpation, ND
Skin: No rashes.
Neuro: CN 2-12 intact
Psych: Slightly flat affect
CT A/P (no contrast): highly suspicious for a cecal volvulus with significant dilatation of the superiorly flipped cecum containing an air-fluid level, twisting of the central abdominal mesentery, and collapse of the colon distal to the cecum.
CXR 05/08/24AM: There is gas beneath the right hemidiaphragm which I favor is cecal volvulus with dilated cecum as seen on 05/07/2024 CT examination. Free intraperitoneal air is less likely, however, clinical correlation is recommended. The tip of
the endotracheal tube is in satisfactory position There is moderate stable pleural parenchymal scarring in the upper left lung. There are no superimposed acute pulmonary abnormalities.
Sepsis, POA, due to acute cecal volvulus:
-Patient went for emergent surgery, exploratory laparotomy and open ileocecectomy with ileocolic anastomosis 05/07/24
-extubated 05/08/24PM
-NGT removed 05/09/24
-NPO
-cont Zosyn
Essential hypertension with hypertensive emergency:
-Hydralazine PRN
-once able to take PO, resume home PO antihypertensives
Other problems:
ESRD: cont HD as per renal
h/o cholelithiasis
DM2: cont Lantus/SSI/accuchecks
FULL/Heparin
--- NOTE | 2024-05-10 08:53 | W.PN.NEPH.HD ---
Assessment
-
Patient seen on dialysis
Systolic blood pressure 143
UF only for 1 kg as patient's weights are significantly down and limited oral intake
Progress Note - Hemodialysis
-
Date of Service: May 10, 2024
Duration: 30 minutes and 3 hours
Potassium Bath: 3
Calcium Bath: 2.5
Opti-Dialyzer: 160
Ultrafiltration: Other (1kg)
Blood Flow: 400
Dialysate Flow: 600
Heparin: none
EPO: 4000
[2024-05-10] MEDS: RETACRIT 4000 UNITS IV (09:00)
--- NOTE | 2024-05-10 10:18 | W.PN.GS2 ---
Today's Communication / Plan
-
Trial cld
Assessment / Plan
-
Patient is a 68 yo M p/w cecal volvulus
POD #3 open ileocecectomy.
Extubated 05/08
AFVSS
Concern yesterday for larger than expected volume of intra-abdominal air. He has not had tachycardia, fever, leukocytosis, increasing pain nor n/v. I suspect this was residual air from surgery and not risk control field representative of a perforated viscus or leak.
Recovering well overall. Some early signs of return of bowel function, however, given degree of illness with risks for ileus formation and bilious effluent from NG tube we will plan to advance diet cautiously. Passed NGT clamp trial yesterday but
still denies bowel function.
-- Trial CLD
-- Pain control: Tylenol and IV Dilaudid PRN, avoiding NSAIDs given CKD
-- Abx: Zosyn (day 3/4), would plan for 4 days post-operatively
-- OOB/ambulate
-- Medical care per Hospitalist, appreciate help
Subjective Data
-
Date of Service: May 10, 2024
AFVSS, undergoing HD during my encounter, hungry, denies pain, denies flatus/BM, denies n/v
Objective Data
-
Intake and Output
05/09/24 05/10/24 05/11/24
06:59 06:59 06:59
Intake Total 197.5 / 197.5 100 / 100
Output Total 440 / 440
Balance -242.5 / -242.5 100 / 100
Intake:
Oral fluids 0 / 0
IV fluids (Total) 42.5 / 42.5
Diprivan 17.5 / 17.5
Fentanyl 25 / 25
IV piggybacks 100 / 100 100 / 100
Amount instilled into GI Tube ( 55 / 55
Total)
[place] Sump 55 / 55
Output:
Gastrointestinal tube output ( 440 / 440
Total)
[place] S[place] 440 / 440
Urine, [place] 0 / 0
Urine, Voided 0 / 0
Vital Signs
Temp Pulse Resp BP Pulse Ox
98.4 F 73 18 163/63 100
05/10/24 07:59 05/10/24 07:59 05/10/24 07:59 05/10/24 07:59 05/10/24 07:59
Lab Results
05/10/24 04:19
05/10/24 04:19
Calcium 9.9 mg/dl (8.4-10.2) 05/10/24 04:19
Phosphorus 6.8 mg/dl (2.5-4.5) H 05/10/24 04:19
Magnesium 2.4 mg/dl (1.6-2.3) H 05/10/24 04:19
Total Bilirubin 0.8 mg/dl (0.2-1.3) 05/07/24 13:54
AST 28 U/L (17-59) 05/07/24 13:54
ALT 16 U/L (0-50) 05/07/24 13:54
Alkaline Phosphatase 69 U/L (38-126) 05/07/24 13:54
Total Protein 8.1 g/dl (6.3-8.2) 05/07/24 13:54
Albumin 4.8 g/dl (3.5-5.0) 05/07/24 13:54
Physical Exam
-
Gen: NAD
Abd: soft, approp ttp, aquacel cdi
--- NOTE | 2024-05-10 10:23 | CM ---
Chart reviewed
HD today
Advanced to clear liquids today
IV antibiotics
Pt is LTR at [facility] - updates sent in Care Port
Plan - return to [facility] when medically stable
[2024-05-10 12:21] LABS: Glucose - Point of Care 67 mg/dl (70-99)
[2024-05-10 12:39] LABS: Glucose - Point of Care 83 mg/dl (70-99)
[2024-05-10] MEDS: THIAMINE INJECTION 200 MG IV ×2 (13:51→19:54)
[2024-05-10] MEDS: NICODERM TRANSDERMAL 14 MG TRANSDERM (13:51)
[2024-05-10 14:44] LABS: Glucose - Point of Care 93 mg/dl (70-99)
[2024-05-10 16:30] LABS: Glucose - Point of Care 94 mg/dl (70-99)
[2024-05-10] MEDS: PEPCID 20 MG IV (19:53)
[2024-05-10] MEDS: NSS (PRESERVATIVE FREE) 8 ML IV (19:53)
[2024-05-10] MEDS: FLUSH (NSS) 3 FLUSH IV (19:56)
[2024-05-10 21:37] LABS: Glucose - Point of Care 100 mg/dl (70-99)
[2024-05-10] MEDS: LANTUS SC (22:07)
[2024-05-10] MEDS: LANTUS 0.07 UNITS SC (22:16)
[2024-05-11] VITALS (7 sets, daily range): BP systolic 152–191; BP diastolic 51–80; BMI 18.4
[2024-05-11] MEDS: ZOSYN 50 IV ×3 (01:59→18:12)
[2024-05-11 03:35] LABS: Glucose - Point of Care 91 mg/dl (70-99)
[2024-05-11 05:53] LABS: % Basophils 0.4 % (0-2); % Eosinophils 2.7 % (0-6); % Immature Granulocytes 0.4 % (0-0.5); % Lymphocytes 18.4 % (20.5-51.1); % Monocytes 8.1 % (1.7-9.3); Absolute Eosinophils 0.2 10^3/uL (0-0.7); Absolute Lymphocytes 1.3 10^3/uL (1.2-3.4); Absolute Monocytes 0.6 10^3/uL (0.1-0.6); Absolute Neutrophils 4.8 10^3/uL (1.4-6.5); Hematocrit 26.3 % (39.0-52.0); Mean Corp Hgb Conc. 34.2 g/dL (33.0-37.0); Mean Corpuscular Hgb 30.1 pg (27.0-31.0); Mean Platelet Volume 10.1 fL (7.4-10.4); Nucleated Red Blood Cells % 0 % (-); Platelet Count 117 10^3/uL (130-400); Red Blood Cell Count 2.99 10^6/uL (4.70-6.10); Red Cell Dist. Width 14.9 % (11.5-14.5); White Blood Cell Count 6.9 10^3/uL (4.8-10.8)
[2024-05-11 06:14] LABS: Blood Urea Nitrogen 43 mg/dl (9-20); Calcium 9.7 mg/dl (8.4-10.2); Carbon Dioxide 27 mmol/L (22-30); Chloride 98 mmol/L (98-107); Estimated Creatinine Clearance 8 ml/min; Glucose 79 mg/dl (70-99); Magnesium 2.2 mg/dl (1.6-2.3); Phosphorus 4.4 mg/dl (2.5-4.5); Potassium 3.2 mmol/L (3.5-5.1); Sodium 143 mmol/L (135-145); eGFR 8.67
[2024-05-11 07:09] LABS: Glucose - Point of Care 90 mg/dl (70-99)
--- NOTE | 2024-05-11 08:02 | W.PN.HOSP.TC ---
Today's Communication/Plan
-
.
Assessment / Plan
Assessment / Plan
ASSESSMENT/PLAN
# Sepsis POA secondary to Cecal Volvulus
#s/p Exploratory Laparotomy and open ileocecectomy with necrotic cecum 05/07/24
-Extubated 05/08. NGT removed 05/09
-Trial of clears
-Continue on Zosyn.
-Surgery following
#Essential HTN with HTN Emergency present on Admission
-restart home Procardia XL/Hydralazine
-Hydralazine PRN
-Monitor BP.
#ESRD on HD
-Nephrology consulted.
-HD tomorrow
#T2DM
-Continue Lantus.
-Hold premeal insulin.
-SSI coverage
DVT ppx- Heparin SubQ
CODE STATUS- Full code.
Anticipated Discharge: > 48 hours
Subjective/Interval History
-
Date of Service: May 11, 2024
Objective Data
-
Labs:
Laboratory Results
05/11/24
04:30
WBC 6.9
Hgb 9.0 L
Hct 26.3 L
Plt Count 117 L
Sodium 143
Potassium 3.2 L
Chloride 98
Carbon Dioxide 27
BUN 43 H
Creatinine 6.5 H*
Glucose 79
Calcium 9.7
Vital Signs:
Vital Signs
Temp Pulse Resp BP Pulse Ox
98.8 F 70 16 162/60 100
05/11/24 03:35 05/11/24 03:35 05/11/24 03:35 05/11/24 03:35 05/11/24 03:35
I&O
05/10/24 05/11/24 05/12/24
06:59 06:59 06:59
Intake Total 100 / 100 990 / 990
Balance 100 / 100 990 / 990
Review of Systems
-
All other systems: Reviewed and negative (except as documented)
Physical Exam
-
General: No Apparent Distress
Cardiac: Regular Rhythm and S1/S2
GI: Soft, Nondistended and Normal Bowel Sounds
[2024-05-11] MEDS: NOVOLOG FLEXPEN-MODERATE RESISTANCE SC (09:06)
[2024-05-11] MEDS: KCL 160 MEQ IV (09:06)
[2024-05-11] MEDS: HEPARIN 5000 UNITS SC ×2 (09:08→18:09)
[2024-05-11] MEDS: THIAMINE INJECTION 200 MG IV (09:09)
[2024-05-11] MEDS: NICODERM TRANSDERMAL 14 MG TRANSDERM (09:11)
[2024-05-11] MEDS: TYLENOL 650 MG PO ×2 (09:15→21:40)
[2024-05-11] MEDS: FOLVITE 1 MG PO (09:15)
--- NOTE | 2024-05-11 09:18 | W.PN.UPDATE ---
Addendum entered and electronically signed by Jose Alicea MD 05/11/24 14:58:
doubt UTI, likely colonization.
Original Note:
Update Note
Progress Note Update
I saw and evaluated the patient. I reviewed the resident�s note and agree with findings and plan as documented in the resident�s note.
Denies chest pain, shortness breath, abdominal pain. States he had diarrhea yesterday.
Gen: NAD, awake and alert, NCTA
Eyes: EOMI, PERRLA, no scleral icterus.
Neck: supple.
CV: remains RRR, +S1/S2, no m/r/g.
Resp: remains CTAB anteriorly, no rales, wheezes, or rhonchi.
Abd: remains +BS, soft, nontender to light palpation, ND
Skin: No rashes.
Neuro: CN 2-12 intact
Psych: Slightly flat affect
CT A/P (no contrast): highly suspicious for a cecal volvulus with significant dilatation of the superiorly flipped cecum containing an air-fluid level, twisting of the central abdominal mesentery, and collapse of the colon distal to the cecum.
CXR 05/08/24AM: There is gas beneath the right hemidiaphragm which I favor is cecal volvulus with dilated cecum as seen on 05/07/2024 CT examination. Free intraperitoneal air is less likely, however, clinical correlation is recommended. The tip of
the endotracheal tube is in satisfactory position There is moderate stable pleural parenchymal scarring in the upper left lung. There are no superimposed acute pulmonary abnormalities.
Sepsis, POA, due to acute cecal volvulus:
-Patient went for emergent surgery, exploratory laparotomy and open ileocecectomy with ileocolic anastomosis 05/07/24PM
-extubated 05/08/24PM
-NGT removed 05/09/24
-diet advanced to clears
-cont Zosyn
Essential hypertension with hypertensive emergency:
-Hydralazine PRN
-restart home Procardia XL/Hydralazine
Other problems:
ESRD: cont HD as per renal
h/o cholelithiasis
DM2: cont Lantus/SSI/accuchecks
FULL/Heparin
--- NOTE | 2024-05-11 10:29 | W.PN.GS2 ---
Today's Communication / Plan
-
`
Assessment / Plan
-
Patient is a 68 yo M p/w cecal volvulus
POD #4 open ileocecectomy.
AFVSS
Returning GI function
--Full liquid diet with advancement to low residue for dinner
-- Pain control: Tylenol and IV Dilaudid PRN, avoiding NSAIDs given CKD
-- Abx: Zosyn (day 4/), would plan for 4 days post-operatively
-- OOB/ambulate
-- Medical care per Hospitalist, appreciate help
Subjective Data
-
Date of Service: May 11, 2024
Patient seen and examined
Offers no complaints other than some incisional discomfort but no significant pain
Tolerated clear liquids and hungry
bowel movements yesterday
Objective Data
-
Intake and Output
05/10/24 05/11/24 05/12/24
06:59 06:59 06:59
Intake Total 100 / 100 990 / 990
Balance 100 / 100 990 / 990
Intake:
Oral fluids 840 / 840
IV piggybacks 100 / 100 150 / 150
Vital Signs
Temp Pulse Resp BP Pulse Ox
98.4 F 69 14 158/80 100
05/11/24 07:10 05/11/24 07:10 05/11/24 07:10 05/11/24 07:10 05/11/24 07:10
Lab Results
05/11/24 04:30
05/11/24 04:30
Calcium 9.7 mg/dl (8.4-10.2) 05/11/24 04:30
Phosphorus 4.4 mg/dl (2.5-4.5) 05/11/24 04:30
Magnesium 2.2 mg/dl (1.6-2.3) 05/11/24 04:30
Total Bilirubin 0.8 mg/dl (0.2-1.3) 05/07/24 13:54
AST 28 U/L (17-59) 05/07/24 13:54
ALT 16 U/L (0-50) 05/07/24 13:54
Alkaline Phosphatase 69 U/L (38-126) 05/07/24 13:54
Total Protein 8.1 g/dl (6.3-8.2) 05/07/24 13:54
Albumin 4.8 g/dl (3.5-5.0) 05/07/24 13:54
Physical Exam
-
NAD AAOx3
ABD: Soft, nondistended, minimal tenderness at incision. No rebound rigidity or guarding.
Midline laparotomy incision with skin richy. Dressing removed and left open to air.
[2024-05-11] MEDS: PROCARDIA XL (EXTENDED RELEASE) 90 MG PO ×2 (10:45→21:39)
--- NOTE | 2024-05-11 11:10 | W.PN.NEPH.PH ---
Today's Communication / Plan
-
HD tomorrow
Assessment/Plan
-
Assessment
ESRD
Ileocecectomy for cecal volvulus
Hypertension
VDRF
Diabetes mellitus type 2
Plan
HD tomorrow,orders provided
diet advancing
RYAN on dialysis
No heparin on dialysis
-
-
Date of Service: May 11, 2024
CC / HPI / ROS
-
Chief Complaint:
ESRD
History of Present Illness:
tolerated HD yesterday
BP stable
Review of Systems:
no CP/SOB
weights lower
Labs
-
Labs:
WBC 6.9 10^3/uL (4.8-10.8) 05/11/24 04:30
RBC 2.99 10^6/uL (4.70-6.10) L 05/11/24 04:30
Hgb 9.0 g/dL (13.0-18.0) L 05/11/24 04:30
Hct 26.3 % (39.0-52.0) L 05/11/24 04:30
Plt Count 117 10^3/uL (130-400) L 05/11/24 04:30
Sodium 143 mmol/L (135-145) 05/11/24 04:30
Potassium 3.2 mmol/L (3.5-5.1) L 05/11/24 04:30
Chloride 98 mmol/L (98-107) 05/11/24 04:30
Carbon Dioxide 27 mmol/L (22-30) 05/11/24 04:30
BUN 43 mg/dl (9-20) H 05/11/24 04:30
Creatinine 6.5 mg/dL (0.7-1.3) H* 05/11/24 04:30
eGFR 8.67 05/11/24 04:30
Glucose 79 mg/dl (70-99) 05/11/24 04:30
Calcium 9.7 mg/dl (8.4-10.2) 05/11/24 04:30
Phosphorus 4.4 mg/dl (2.5-4.5) 05/11/24 04:30
Albumin 4.8 g/dl (3.5-5.0) 05/07/24 13:54
Physical Exam
-
Vital Signs:
Vital Signs
Temp Pulse Resp BP Pulse Ox
98.4 F 69 14 158/80 100
05/11/24 07:10 05/11/24 07:10 05/11/24 07:10 05/11/24 07:10 05/11/24 07:10
Cardiovascular:: Regular rate and rhythm
Respiratory:: Bilateral: Coarse
Lung Excursion:: Normal
Abdomen:: Nontender and Soft
Bowel Sounds:: Decreased
Extremity Edema:: None: Bilateral:
[2024-05-11 12:10] LABS: Glucose - Point of Care 215 mg/dl (70-99)
[2024-05-11] MEDS: NOVOLOG FLEXPEN-MODERATE RESISTANCE 3 UNITS SC ×2 (12:43→18:10)
--- NOTE | 2024-05-11 14:43 | PN.CDI ---
CDI
- -
CDI:
Physician Documentation Request
Admit Date: 05/07/24 17:10
Dear Doctor Eliud,
Please review the following and provide your response in the progress notes.
Clinical Indicators:
Pt was admitted with sepsis secondary to cecal volvulus.
05/08 [employer] Coordinator progress note: 'Abnormal urinalysis suspicious for UTI with +2 leukocyte esterase and >100 urine WBC...Urine Cx is growing Proteus --> follow up sensitivities.'
05/08/24 01:30 Urine Culture - Final
Urine Proteus mirabilis
Please clarify the following:
UTI was ruled out
UTI is still a likely, suspected, probable diagnosis
Other
Use of terms such as suspected, likely, concern for, or probable (associated with a specific diagnosis that is being evaluated, monitored, or treated as if it exists) are acceptable and can be coded in the inpatient setting, when documented at the
time of discharge.
Thank you,
Anya Rodriguez RN, BSN
CDI Specialist
Available via [place] [employer]
Please use your independent medical judgment in providing your response.
--- NOTE | 2024-05-11 15:02 | CM ---
Chart reviewed
Advanced to full liquids
HD tomorrow
From [facility] - updates sent in Care Port
Plan - return to [facility] when medically stable
[2024-05-11 16:46] LABS: Glucose - Point of Care 203 mg/dl (70-99)
[2024-05-11] MEDS: APRESOLINE 50 MG PO ×2 (18:09→21:39)
[2024-05-11 21:15] LABS: Glucose - Point of Care 183 mg/dl (70-99)
[2024-05-11] MEDS: LANTUS 0.1 UNITS SC (21:38)
[2024-05-11] MEDS: VITAMIN B1 100 MG PO (21:39)
[2024-05-12] MEDS: HEPARIN 5000 UNITS SC (00:34)
[2024-05-12] MEDS: ZOSYN 50 IV (02:32)
[2024-05-12] MEDS: TYLENOL 650 MG PO (02:41)
[2024-05-12 03:59] VITALS: BP 131/48
[2024-05-12 04:02] VITALS: BMI 18.6
[2024-05-12 06:00] VITALS: BMI 18.6
[2024-05-12 07:00] VITALS: BP 139/58
--- NOTE | 2024-05-12 07:19 | W.PN.HOSP.TC ---
Today's Communication/Plan
-
.
Assessment / Plan
Assessment / Plan
ASSESSMENT/PLAN
# Sepsis POA secondary to Cecal Volvulus
#s/p Exploratory Laparotomy and open ileocecectomy with necrotic cecum 05/07/24
-Extubated 05/08. NGT removed 05/09
-Tolerated Full liquid diet, now on Low residue diet.
-Completed Zosyn x4 days
-Surgery following
-Proteus Mirabilis on urine culture 05/08 possibly represents asymptomatic bacteruria/colonization and not Urinary tract infection.
#Essential HTN with HTN Emergency present on Admission
-On home Procardia XL/Hydralazine
-Hydralazine PRN
-Monitor BP.
#ESRD on HD
-HD today
#T2DM
-Continue Lantus.
-SSI coverage
DVT ppx- Heparin SubQ
CODE STATUS- Full code.
Anticipated Discharge: 24 - 48 hours
Subjective/Interval History
-
Date of Service: May 12, 2024
Objective Data
-
Labs:
Laboratory Results
05/12/24
06:57
WBC Pending
Hgb Pending
Hct Pending
Plt Count Pending
Sodium Pending
Potassium Pending
Chloride Pending
Carbon Dioxide Pending
BUN Pending
Creatinine Pending
Glucose Pending
Calcium Pending
Vital Signs:
Vital Signs
Temp Pulse Resp BP Pulse Ox
98.4 F 69 18 131/48 100
05/12/24 03:59 05/12/24 03:59 05/12/24 03:59 05/12/24 03:59 05/12/24 03:59
I&O
11/14/24 11/15/24 11/16/24
06:59 06:59 06:59
Intake Total 990 / 990 2430 / 2429
Balance 990 / 990 0 / 2429
Review of Systems
-
All other systems: Reviewed and negative (except as documented)
Physical Exam
-
General: No Apparent Distress
Cardiac: Regular Rhythm and S1/S2
GI: Soft, Nontender and Nondistended
Musculoskeletal: No Edema
Neuro: Awake and Alert
[2024-05-12 07:36] LABS: Glucose - Point of Care 163 mg/dl (70-99)
[2024-05-12 08:03] LABS: Blood Urea Nitrogen 61 mg/dl (9-20); Calcium 9.6 mg/dl (8.4-10.2); Carbon Dioxide 24 mmol/L (22-30); Chloride 96 mmol/L (98-107); Glucose 207 mg/dl (70-99); Potassium 3.1 mmol/L (3.5-5.1); Sodium 139 mmol/L (135-145)
[2024-05-12 08:18] LABS: Estimated Creatinine Clearance 6 ml/min; eGFR 5.79
[2024-05-12 08:20] LABS: Hematocrit 23.9 % (39.0-52.0); Hemoglobin 8.5 g/dL (13.0-18.0); Mean Corp Hgb Conc. 35.6 g/dL (33.0-37.0); Mean Corpuscular Hgb 29.9 pg (27.0-31.0); Mean Corpuscular Volume 84.2 fL (80.0-94.0); Mean Platelet Volume 10.8 fL (7.4-10.4); Platelet Count 119 10^3/uL (130-400); Red Blood Cell Count 2.84 10^6/uL (4.70-6.10); Red Cell Dist. Width 14.6 % (11.5-14.5); White Blood Cell Count 4.6 10^3/uL (4.8-10.8)
[2024-05-12] MEDS: NOVOLOG FLEXPEN-MODERATE RESISTANCE SC ×2 (08:30→12:57)
--- NOTE | 2024-05-12 08:43 | W.PN.GS2 ---
Addendum entered and electronically signed by Igor Jarrell MD 05/12/24 15:01:
Patient seen and examined this afternoon with nurse practitioner follow-up.
Offers no complaints, hungry tolerating diet well. Continue GI function.
AFVSS
ABD: Midline laparotomy incision healing nicely with skin richy. No infectious signs or symptoms.
POD 5 status post open ileocecectomy for cecal volvulus
Stable for discharge from general surgical standpoint continue with low residue diet
Outpatient follow-up with Dr. Gray for staple removal in 1 to 2 weeks.
Original Note:
Today's Communication / Plan
-
continue current diet
Assessment / Plan
-
Patient is a 68 yo M p/w cecal volvulus
POD #5 open ileocecectomy.
AFVSS
Returning GI function
-- Continue low residue/ada diet
-- Pain control: Tylenol and oxycodone PRN, avoiding NSAIDs given ESRD
-- He has completed 4 days of ABX, OK to d/c zosyn from surgical standpoint
-- OOB/ambulate
-- Medical care per Hospitalist
Subjective Data
-
Date of Service: May 12, 2024
Patient seen and examined at bedside. Currently on HD. Denies complaints of pain or nausea. Notes he is tolerating diet well and has passed flatus and a BM.
Objective Data
-
Intake and Output
05/11/24 05/12/24 05/13/24
06:59 06:59 06:59
Intake Total 990 / 990 2430 / 2430
Balance 990 / 990 2430 / 2430
Intake:
Oral fluids 840 / 840 2430 / 2430
IV piggybacks 150 / 150
Other:
How many times incontinent 3
MODERATE amount urine
Number of unmeasured liquid
stools
Rectum 1
Vital Signs
Temp Pulse Resp BP Pulse Ox
97.9 F 69 14 139/58 99
05/12/24 07:00 05/12/24 07:00 05/12/24 07:00 05/12/24 07:00 05/12/24 07:00
Lab Results
05/12/24 06:57
05/12/24 06:57
Calcium 9.6 mg/dl (8.4-10.2) 05/12/24 06:57
Phosphorus 4.4 mg/dl (2.5-4.5) 05/11/24 04:30
Magnesium 2.2 mg/dl (1.6-2.3) 05/11/24 04:30
Total Bilirubin 0.8 mg/dl (0.2-1.3) 05/07/24 13:54
AST 28 U/L (17-59) 05/07/24 13:54
ALT 16 U/L (0-50) 05/07/24 13:54
Alkaline Phosphatase 69 U/L (38-126) 05/07/24 13:54
Total Protein 8.1 g/dl (6.3-8.2) 05/07/24 13:54
Albumin 4.8 g/dl (3.5-5.0) 05/07/24 13:54
Physical Exam
-
NAD
ABD soft, nt, nd
Staple line intact without erythema
[2024-05-12] MEDS: RETACRIT 6000 UNITS IV (08:50)
--- NOTE | 2024-05-12 09:06 | W.PN.NEPH.HD ---
Assessment
-
Seen on HD. no complaints. VSS, access ok
eating well
Progress Note - Hemodialysis
-
Date of Service: May 12, 2024
Duration: 30 minutes and 3 hours
Potassium Bath: 3
Calcium Bath: 2.5
Opti-Dialyzer: 160
Ultrafiltration: Other (1kg)
Blood Flow: 400
Dialysate Flow: 600
Heparin: no
EPO: 6000 units
--- NOTE | 2024-05-12 09:36 | W.PN.UPDATE ---
Addendum entered and electronically signed by Jose Alicea MD 05/12/24 13:24:
Total time spent on d/c = 37 min. This included today's physical exam, progress note, review of laboratory and diagnostic data, preparation of discharge documents and prescriptions, and discussions about the pt's hospital course and discharge plan
with the patient and other medical customer service representative involved in the patient's care.
Original Note:
Update Note
Progress Note Update
I saw and evaluated the patient. I reviewed the resident�s note and agree with findings and plan as documented in the resident�s note.
Denies chest pain, shortness breath, abdominal pain. States he had diarrhea yesterday.
Gen: NAD, awake and alert, NCTA
Eyes: EOMI, PERRLA, no scleral icterus.
Neck: supple.
CV: continues to remain RRR, +S1/S2, no m/r/g.
Resp: continues to remain CTAB anteriorly, no rales, wheezes, or rhonchi.
Abd: continues to remain +BS, soft, nontender to light palpation, ND
Skin: No rashes.
Neuro: CN 2-12 intact
Psych: Slightly flat affect
CT A/P (no contrast): highly suspicious for a cecal volvulus with significant dilatation of the superiorly flipped cecum containing an air-fluid level, twisting of the central abdominal mesentery, and collapse of the colon distal to the cecum.
CXR 05/08/24AM: There is gas beneath the right hemidiaphragm which I favor is cecal volvulus with dilated cecum as seen on 05/07/2024 CT examination. Free intraperitoneal air is less likely, however, clinical correlation is recommended. The tip of
the endotracheal tube is in satisfactory position There is moderate stable pleural parenchymal scarring in the upper left lung. There are no superimposed acute pulmonary abnormalities.
Sepsis, POA, due to acute cecal volvulus:
-Patient went for emergent surgery, exploratory laparotomy and open ileocecectomy with ileocolic anastomosis 05/07/24
-extubated 11/11/24PM
-NGT removed 05/09/24
-diet advanced to low residue
-stop Zosyn as pt has completed 4 days of abx as recommended by surgery. For clarification, suspect UCx results represent asymptomatic bacteriuria/colonization and not urinary tract infection.
Essential hypertension with hypertensive emergency:
-Hydralazine PRN
-cont Procardia XL/Hydralazine
Other problems:
Hypokalemia, replete
ESRD: cont HD as per renal
h/o cholelithiasis
DM2: cont Lantus/SSI/accuchecks
FULL/Heparin
Case discussed with surgery and the patient is medically cleared for discharge. Case management aware.
[2024-05-12] MEDS: MANNITOL 25% 12.5 GRAMS IV (09:37)
[2024-05-12 11:00] VITALS: BP 134/57
--- NOTE | 2024-05-12 11:15 | CM ---
Addendum entered by Stephani Estes 05/12/24 13:55:
Transport at 4:14PM to return to [facility]
Chey at [facility] notified
Called and LM on for brother notifying of transfer time
HD flow sheets faxed to [phone]
Original Note:
Team indicating pt medically ready for discharge today
Spoke with Chey at [facility] [phone]
Informed pt for d/c today. No skilled needs noted
Updates sent in Care Port
Receiving HD today
Transport to be arranged for PM
Plan - transfer to [facility]
R - [phone], ask for 2nd fl
F - [phone]
--- NOTE | 2024-05-12 12:12 | W.DCSUMMARY ---
Addendum entered and electronically signed by Jose Alicea MD 05/13/24 08:15:
Read, reviewed, and agree. See same day progress note for additional details.
Original Note:
Discharge Summary
Discharge Data
Date of Admission: 05/07/24
Date of Discharge: 05/12/24
-
Pending Results: No
Hospital Course
Patient is a 68-year-old male with past medical history of ESRD on HD, hypertension, diabetes mellitus, prior EtOH abuse who presented to ED from SNF with abdominal tenderness, nausea and vomiting ongoing for a couple of days. On presentation
patient was in pain and confused. Evaluation with a CT abdomen and pelvis without IV contrast showed suspicion for a cecal volvulus with significant dilatation of the superiorly flipped cecum containing an air-fluid level, twisting of the central
abdominal mesentery, and collapse of the colon distal to the cecum. He was started on empiric Zosyn and surgery was consulted for an emergency exploratory laparotomy. Exploratory laparotomy and Open ileocecectomy performed 05/07/2024. He remained
intubated on mechanical ventilation post-operatively, and was successfully extubated on 05/08/2024. Postop, patient recovered well overall. As at 05/09, there where some early signs of return of bowel function. His diet was advanced cautiously,
tolerating clear liquid, full liquid, and a low residue diet. NG tube was removed 05/09/2024 after successful clamp trial. He completed 4 days course of Zosyn postoperatively.
Essential hypertension with hypertensive emergency
-On presentation to the ER, patient's blood pressure was 213/67. He was administered hydralazine with improvement of blood pressure numbers, and kept on a standing dose of hydralazine as needed. His oral antihypertensives were restarted as soon as
he could tolerate oral medications. Blood pressure remained stable throughout the course of his hospital stay.
End-stage renal disease on hemodialysis
-Patient was continued on hemodialysis MWF during the course of his hospital stay.
Type 2 diabetes mellitus- during the course of his hospital stay, he was continued on Lantus and sliding scale insulin. His Lantus dosage was increased to 10 units. He will be discharged home on 10 units of Lantus at bedtime.
Operative Report
Date of Operation: 05/07/2024
Preoperative Diagnosis: Cecal volvulus
Postoperative Diagnosis: Cecal volvulus, necrotic cecum
Procedure(s):
1. Exploratory laparotomy
2. Open ileocecectomy with ileocolic anastomosis
Surgeon(s):
Dr. Gray
Specimens: Ileocecectomy
Indication for surgery:
This is a 68-year-old male with a history of dementia, ESRD on HD MWF, hypertension, diabetes, former EtOH abuse who presents through the ED from his SNF for severe abdominal pain. CT scan showing cecal volvulus. On exam his abdomen was firm and
tender with a significant asymmetry. After discussion risk benefits and alternatives including nonoperative/palliative care with his brother Joey who lives in [place] and is his POA we elected to move forward with emergent surgery.
Operative Findings: Markedly dilated and necrotic cecum that was volvulized around its mesentery x 2. The small bowel was ligated and the ileocolic pedicle was clamped to prevent cytokine release once the cecum was detorsed. The white line of
Toldt was incised and the right colon was medialized up to the hepatic flexure. After removal of the specimen and end to end, functional neha-al-mnpb stapled ileocolonic anastomosis was made using an 80 purple JENSEN stapler. In total 4 staple loads
were used. The mesentery was closed, 2 crotch stitches were placed and the staple line was oversewn all with 3-0 silk sutures. The abdomen was irrigated out with a liter of warm saline but there was minimal to no contamination. The midline was
closed with x2 0 PDS sutures anchored at each apex and tied in the middle using half centimeter bites with half centimeter advancement. The skin was closed with richy. An NG tube placed preoperatively in the ED was confirmed to be in proper
positioning intraoperatively, and a 16 Peruvian Robles was placed at the start of the procedure. 1 g of TXA during the case was given as there was some superficial oozing around the patient's markedly cirrhotic liver.
Details of the operation:
The patient was brought to the operating room and positioned supine on the operating table. General anesthesia was induced, followed by successful endotracheal intubation. An NG tube had already been placed preoperatively in the ED. A 16 Peruvian
Robles catheter was placed by the circulating nurse. The abdomen was prepped and draped in the usual fashion. A timeout was performed confirming the patient's name, procedure and that appropriate preoperative medications been given. A generous
periumbilical vertical midline incision was made and the abdomen was entered safely. A large Ja wound retractor was placed in the abdomen to protect the soft tissues and provide retraction. A very dilated and necrotic appearing cecum was
readily identified and clearly volvulized around a long ileocolic pedicle. To prevent sudden cytokine release, I clamped and ligated the ileocolic pedicle before detorsing the cecum. The terminal ileum appeared healthy up to the ileocecal valve
and so a window was made in the mesentery here and the small bowel was divided. I then turned my attention to the white line of Toldt which was incised and we medialized the right colon off of the underlying retroperitoneum all the way up to the
hepatic flexure. There was a significant amount adhesions overlying very cirrhotic appearing liver which were taken down using bipolar energy device. The hepatic flexure was taken down to allow good mobilization of the right colon which was fairly
foreshortened. Healthy portion of the right colon was identified and after making a hole in the mesentery the right colon was divided using an 80 purple load on a JENSEN stapler. The remaining mesentery of the cecum was divided using the bipolar
energy device and the specimen was passed off the field. There was some fibrinous exudate and fluid in the abdomen but there was no spillage of gastrointestinal contents and there was no abscess or perforation noted. We then began fashioning our a
modi-zp-tzsg, functional end-to-end stapled anastomosis by making an enterotomy on the antimesenteric side of both the small bowel and the right colon. An 80 purple load Endo JENSEN stapler was advanced and fired. The common enterotomy was then
stapled off with the anastomotic staple line offset and fired using another 80 purple load. The common enterotomy staple line was then oversewn using interrupted 3-0 silk sutures. 2 crotch stitches were placed to take the tension off of the
anastomotic staple line. The mesenteric defect was also closed with a running 3-0 silk suture. Our gloves were changed and the abdomen was then irrigated with warm saline and suctioned until dry. There was some bleeding from the surface of a very
cirrhotic appearing liver which stopped with administration of 1 g of TXA as well as cautery and packing. The patient's NG tube was confirmed to be in good position in the mid body of the stomach. Bilateral tap blocks were performed using 30 cc of
quarter percent Marcaine with epinephrine placed in discrete points along the transversus abdominis muscle under direct visualization. Satisfied, we then turned closing his abdomen using 0 PDS suture on a CT 2 needle anchored at each apex and run
to the middle taking 0.5 cm bites with 0.5 cm advancement. The subcutaneous tissue was then irrigated out and the skin was loosely approximated using skin richy. The incision was then closed with an Aquacel wound dressing. All counts were
correct at the end of procedure x2. The patient tolerated the procedure and was transferred to the ICU intubated and sedated for further recovery.
Discharge Plan
-
Patient Disposition: Care Home/SNF
Discharge Diagnosis/Procedures: Sepsis secondary to acute cecal volvulus
Essential hypertension with hypertensive emergency
End Stage Renal disease on Hemodialysis
Type 2 Diabetes Mellitus
Condition: Fair
Diet: Other diet
Additional Diets: renal diet (low K)
Activity: No restrictions
Driving Restrictions: No driving
Bathing Restrictions: OK to Shower
Wound Care: Ok to leave incision open to air. Wash gently with soap and water. Your richy will be removed during your follow up appointment with your surgeon in 2 weeks
Activity Restrictions/Additional Instructions:
Call your surgeon if you develop worsening abdominal pain, nausea with vomiting or a fever >100.5
Referrals:
Taiwo Madrid, DO [Family Provider] - in less than 1 week
Michael Gray MD [Active] - in two weeks
Prescriptions:
New
insulin glargine 100 unit/mL (3 mL) insulin pen
10 unit SC QPM Qty: 3 0RF
Continued
acetaminophen 325 mg Tablet
650 mg PO Q6HPRN PRN (Reason: MILD PAIN)
Rx Instructions:
DO NOT EXCEED 3G/24HR
donepezil [Aricept] 10 mg Tablet
10 mg PO HS
famotidine [Pepcid] 20 mg Tablet
20 mg PO BID
nifedipine [Procardia XL] 90 mg Tablet Extended Release 24hr
90 mg PO BID
Rx Instructions:
HOLD SBP <100
bisacodyl 10 mg Suppository
10 mg CO DAILYPRN PRN (Reason: IF MOM IS INEFFECTIVE)
fluoxetine [Prozac] 10 mg Capsule
10 mg PO DAILY
hydralazine 50 mg Tablet
50 mg PO TID
Rx Instructions:
HOLD SBP <100
sorbitol 70 % Solution
30 ml PO DAILYPRN PRN (Reason: CONSTIPATION)
calcium carbonate-vitamin D3 500 mg-5 mcg (200 unit) Tablet
1 tab PO DAILY
Zenpep 5,000-17,000- 24,000 unit Capsule,Delayed Release(Dr/Ec)
1 cap PO MEALS
pantoprazole [Protonix] [address] for susp in packet
40 mg PO DAILY Qty: 30 0RF
clonidine HCl 0.1 mg Tablet
0.1 mg PO BIDPRN PRN (Reason: SBP>170)
latanoprost 0.005 % drops
1 drp BOTH EYES HS
nystatin 100,000 unit/mL Suspension
0 ml mucous membrane BID
ondansetron HCl 4 mg Tablet
4 mg PO Q8HPRN PRN (Reason: nausea with dialysis)
sodium polystyrene sulfonate 15 gram/60 mL Suspension
15 g PO DAILYPRN PRN (Reason: missed dialysis day)
insulin lispro [Humalog KwikPen Insulin] 100 unit/mL insulin pen
2 unit SC AC
Rx Instructions:
201-250=2UNITS, 251-300=4UNITS
cholecalciferol (vitamin D3) 25 mcg (1,000 unit) Tablet
50 mcg PO DAILY
sevelamer carbonate [Renvela] 800 mg Tablet
800 mg PO MEALS
B-complex with vitamin C Tablet
1 tab PO DAILY
Discontinued
insulin glargine [Lantus Solostar U-100 Insulin] 100 unit/mL (3 mL) insulin pen
7 unit SC HS
Discharge Orders:
Discharge Patient (As Directed); Ordered 05/12/24
Ordered By: Hansa Kline
Discharge Date and Time
Print Language: BULGARIAN
[2024-05-12 12:27] LABS: Glucose - Point of Care 146 mg/dl (70-99)
[2024-05-12] MEDS: NICODERM TRANSDERMAL 14 MG TRANSDERM (13:46)
[2024-05-12] MEDS: VITAMIN B1 100 MG PO (13:46)
[2024-05-12] MEDS: PROCARDIA XL (EXTENDED RELEASE) 90 MG PO (13:47)
[2024-05-12] MEDS: APRESOLINE 50 MG PO (13:47)
[2024-05-12] MEDS: FOLVITE 1 MG PO (13:47)
[2024-05-12] MEDS: HEPARIN SC (13:49)
[2024-05-12 15:15] VITALS: BP 154/71
== END 2024-05-12 16:06 | DRG 853 ==
LOC: 2 SOUTH 17:10
PROVIDERS: Nurse Practitioner Family; Registered Nurse; Specialist; Student in an Organized Health Care Education/Training Program; ADMITTING PHYSICIAN Internal Medicine; ATTENDING PHYSICIAN Internal Medicine; CONSULT PHYSICIAN Surgery; EMERGENCY PHYSICIAN Emergency Medicine; FAMILY PHYSICIAN Internal Medicine; OTHER PHYSICIAN Internal Medicine Critical Care Medicine; OTHER PHYSICIAN Specialist
PROC: 0DTC0ZZ Resection of Ileocecal Valve, Open Approach (ICD-10-PCS; 2024-05-07)
DX: A41.9 Sepsis, unspecified organism (principal); J96.01 Acute respiratory failure with hypoxia; K56.2 Volvulus; N18.6 End stage renal disease; K55.031 Focal (segmental) acute (reversible) ischemia of large intestine; E87.4 Mixed disorder of acid-base balance; F03.93 Unspecified dementia, unspecified severity, with mood disturbance; F03.94 Unspecified dementia, unspecified severity, with anxiety; I12.0 Hypertensive chronic kidney disease with stage 5 chronic kidney disease or end stage renal disease; I16.1 Hypertensive emergency; R64 Cachexia; Z68.1 Body mass index [BMI] 19.9 or less, adult; E87.3 Alkalosis; E87.20 Acidosis, unspecified; D63.1 Anemia in chronic kidney disease; E11.22 Type 2 diabetes mellitus with diabetic chronic kidney disease; F32.A Depression, unspecified; F10.20 Alcohol dependence, uncomplicated; K70.40 Alcoholic hepatic failure without coma; Z99.2 Dependence on renal dialysis; D69.6 Thrombocytopenia, unspecified; J47.9 Bronchiectasis, uncomplicated; H40.9 Unspecified glaucoma; K21.9 Gastro-esophageal reflux disease without esophagitis; F17.210 Nicotine dependence, cigarettes, uncomplicated; I44.0 Atrioventricular block, first degree; K80.20 Calculus of gallbladder without cholecystitis without obstruction; Z79.84 Long term (current) use of oral hypoglycemic drugs; Z79.899 Other long term (current) drug therapy; Z87.19 Personal history of other diseases of the digestive system
CPT/HCPCS: 88307; 71045; 74176; 80048; 80053; 81003; 81015; 82805; 82962; 83036; 83605; 83615; 83690; 83735; 84100; 84478; 85025; 85027; 85610; 85730; 86850; 86900; 86901; 87040; 87070; 87086; 87088; 87186; 87340; 93005; 94002; 94003; 96365; 96375; 96376; 99285; G0257; P9047; Q5106

== ENCOUNTER 2024-05-12 20:41 | Emergency (ER) | payer OTHER, SELFPAY ==
[2024-05-12 20:44] VITALS: BP 163/69
[2024-05-12 20:49] VITALS: BMI 18.4
--- NOTE | 2024-05-12 20:50 | ED.GENMED ---
History of Present Illness
General
Chief Complaint: Abdominal Symptoms
Time Seen by Provider: 05/12/24 20:50
History of Present Illness
History of Present Illness:
TIME OF INITIAL ENCOUNTER: 9 PM
HPI: Patient came in by ambulance. The patient was discharged earlier today. He initially came in 05/07 and was found to have a cecal volvulus, was placed on Zosyn and ex lap then open ileocecectomy was performed. He denies abdominal pain
currently. ED nurse spoke to EMS who states that they were told that he had some mild vomiting earlier. The patient denies abdominal pain but does have some mild nausea. The patient did have a full dialysis session today
EXAM:
GENERAL: Appears in minimal distress holding an emesis bag, appears generally weak
HEENT: Moist oral mucosa, edentulous
CARDIOVASCULAR: Regular rate and rhythm
PULMONARY: No respiratory distress, breathing is nonlabored, equal and clear breath sounds
ABDOMEN: Soft and nontender with no peritoneal signs, surgical richy are noted to the midline abdomen
NEUROLOGIC: The patient has evidence of dementia, not oriented to month or place, strength is equal in all extremities
EXTREMITIES: Moves all extremities equally but weakly, no tenderness, no edema, there is an excellent thrill to the fistula in the left upper extremity
PYSCHIATRIC: Very limited historian, poor insight and judgment
NUMBER AND COMPLEXITY OF PROBLEMS ADDRESSED AT THE ENCOUNTER
� Chronic conditions affecting care: Dementia, cirrhosis, GERD, diabetes, anemia, history of alcohol abuse
� Acute Exacerbation and/or Progression of Chronic Illness: This is an acute problem
� Differential Diagnosis includes: Postsurgical complication, viral syndrome, gastroenteritis
AMOUNT AND/OR COMPLEXITY OF DATA TO BE REVIEWED AND ANALYZED
� I performed an independent evaluation of and my interpretation is:
EKG:
CT: CT shows improved free air throughout the abdomen pelvis and new mild free fluid in the pelvis
X-rays:
Laboratory Studies: White count 4.2, hemoglobin 11.2, creatinine 5.1, lactic 1.5, ALT 295 which is higher than prior, AST also higher than prior but total bili normal and alk phos normal
Other:
� Review of other/old records: I reviewed records�see HPI.
� Clinical information was obtained by an independent historian: EMS
� Prescriptions/Medications Considered but not given:
� Further testing considered but not performed:
RISK OF COMPLICATIONS AND/OR MORBIDITY OR MORTALITY OF PATIENT MANAGEMENT
� Social determinants of health affecting care: Resides at [facility]
� Discussion with other providers: Notified Dr. Staples covering for general surgery at 10:20 PM�agrees with outpatient management
� Escalation of care including admission/observation vs risk of discharge considered: Upon arrival, the patient did have a bowel movement. He is a limited historian but denies any abdominal pain but states he does have some
nausea. CT imaging relatively unremarkable
ANY OTHER UPDATES:
10:20 PM: I reassessed patient and he appears comfortable
Past History
Past History
ED Past Medical History: HTN, IDDM, Renal failure (Dialysis M-W-F, ), Psychiatric (Depression) and Other (Slight Dementia but able to answer questions, Cirrhosis of the liver, Colitis, Hep A, Anemia, Right arm Fistula)
ED Past Surgical History: None
Social History
Tobacco: Smoker
Alcohol: None
Personal: Single
Living: senior living
Phy Exam
Physical Exam
Physical Exam:
See HPI
Course
Orders/Labs/Results
Orders:
Orders
05/12/24 20:59
CT Abd/pel Without Iv Or Oral Urgent
Comment:
Reason For Exam: pain; recent cecal volv;dialysis patient; dementia
05/12/24 21:00
Electrocardiogram (*1) Urgent
Reason for Study: QTc Monitoring
EKG- Treatment ONCE
05/12/24 21:22
Complete Blood Count/With Diff Urgent
Comprehensive Metabolic Panel Urgent
Lactic Acid Q4H
Comment: CANCEL 2nd LACTIC ACID IF 1st LACTIC ACID IS LESS THAN 2
Abnormal Lab Results
05/12/24 05/12/24
21:22 21:31
WBC 4.2 L 10^3/uL
(4.8-10.8)
RBC 3.77 L 10^6/uL
(4.70-6.10)
Hgb 11.2 L D g/dL
(13.0-18.0)
Hct 32.7 L %
(39.0-52.0)
RDW 15.1 H %
(11.5-14.5)
Abs Immat Gran (auto) 0.1 H 10^3/uL
(0-0.05)
Absolute Lymphs (auto) 0.8 L 10^3/uL
(1.2-3.4)
Immature Gran % 1.2 H %
(0-0.5)
Lymphocytes % 18.4 L %
(20.5-51.1)
Monocytes % 13.4 H %
(1.7-9.3)
Chloride 95 L mmol/L
(98-107)
BUN 27 H mg/dl
(9-20)
Creatinine 5.1 H* mg/dL
(0.7-1.3)
Glucose 174 H mg/dl
(70-99)
Calcium 10.3 H mg/dl
(8.4-10.2)
AST 79 H U/L
(17-59)
ALT 295 H U/L
(0-50)
POC Glucose 154 H mg/dl
(70-99)
05/12/24 21:22
05/12/24 21:22
Vital Signs
Initial and Last Documented VS:
Initial Vital Signs
Temp Pulse Resp BP Pulse Ox
98.3 F 88 15 163/69 100
05/12/24 20:44 05/12/24 20:44 05/12/24 20:44 05/12/24 20:44 05/12/24 20:44
Last Documented Vital Signs
Temp Pulse Resp BP Pulse Ox
98.3 F 88 15 177/69 99
05/12/24 20:44 05/12/24 20:44 05/12/24 20:44 05/12/24 21:00 05/12/24 20:49
*Critical Care Note
Total Time (30-74mins, 75-104mins- exclusive of procedures): Not Applicable
ED Attending Note
-
Portions of this chart may have been created with voice recognition software.� Occasional wrong word or��sound alike� substitutions may have occurred due to the inherent limitations of voice recognition software.
Discharge Plan
Departure
Patient Disposition: Home (Routine Discharge)
Date of Disposition: 05/12/24
Time of Disposition: 22:40
Patient with high blood pressure during this ER visit?: Yes
Discharge Problem:
Vomiting, Abdominal pain
Prescriptions:
No Action
acetaminophen 325 mg Tablet
650 mg PO Q6HPRN PRN (Reason: MILD PAIN)
Rx Instructions:
DO NOT EXCEED 3G/24HR
donepezil [Aricept] 10 mg Tablet
10 mg PO HS
famotidine [Pepcid] 20 mg Tablet
20 mg PO BID
nifedipine [Procardia XL] 90 mg Tablet Extended Release 24hr
90 mg PO BID
Rx Instructions:
HOLD SBP <100
bisacodyl 10 mg Suppository
10 mg GA DAILYPRN PRN (Reason: IF MOM IS INEFFECTIVE)
fluoxetine [Prozac] 10 mg Capsule
10 mg PO DAILY
hydralazine 50 mg Tablet
50 mg PO TID
Rx Instructions:
HOLD SBP <100
sorbitol 70 % Solution
30 ml PO DAILYPRN PRN (Reason: CONSTIPATION)
calcium carbonate-vitamin D3 500 mg-5 mcg (200 unit) Tablet
1 tab PO DAILY
Zenpep 5,000-17,000- 24,000 unit Capsule,Delayed Release(Dr/Ec)
1 cap PO MEALS
pantoprazole [Protonix] [address] for susp in packet
40 mg PO DAILY Qty: 30 0RF
clonidine HCl 0.1 mg Tablet
0.1 mg PO BIDPRN PRN (Reason: SBP>170)
latanoprost 0.005 % drops
1 drp BOTH EYES HS
nystatin 100,000 unit/mL Suspension
0 ml mucous membrane BID
ondansetron HCl 4 mg Tablet
4 mg PO Q8HPRN PRN (Reason: nausea with dialysis)
sodium polystyrene sulfonate 15 gram/60 mL Suspension
15 g PO DAILYPRN PRN (Reason: missed dialysis day)
insulin lispro [Humalog KwikPen Insulin] 100 unit/mL insulin pen
2 unit SC AC
Rx Instructions:
201-250=2UNITS, 251-300=4UNITS
cholecalciferol (vitamin D3) 25 mcg (1,000 unit) Tablet
50 mcg PO DAILY
sevelamer carbonate [Renvela] 800 mg Tablet
800 mg PO MEALS
B-complex with vitamin C Tablet
1 tab PO DAILY
insulin glargine 100 unit/mL (3 mL) insulin pen
10 unit SC QPM Qty: 3 0RF
Referrals:
Taiwo Madrid DO [Family Provider] -
Michael Gray MD [Active] - Keep scheduled appt
Activity Restrictions/Additional Instructions:
The CAT scan of the abdomen pelvis did not show any clear abnormality. I notified the general surgeon on-call, Dr. Staples. Return here if worse or other concerns. Basic blood work is unremarkable.
Interventions
Interventions:
*Risk Screen - Suicide Last Done: 05/12/24 20:44
*General Assessment Last Done: 05/12/24 20:44
*Neglect/Abuse Screening Last Done: 05/12/24 20:44
ED- Fall Risk Assessment Last Done: 05/12/24 20:49
*ED COVID-19 Vaccine History Last Done: 05/12/24 20:49
IC-Dzwqrj-Aikfqlrqvv Assessment Last Done: 05/12/24 20:49
Discharge Date and Time
Print Language: MAORI
[2024-05-12 20:53] VITALS: BP 163/69
[2024-05-12 21:00] VITALS: BP 177/69
[2024-05-12 21:30] LABS: % Basophils 0.7 % (0-2); % Eosinophils 1.9 % (0-6); % Immature Granulocytes 1.2 % (0-0.5); % Lymphocytes 18.4 % (20.5-51.1); % Monocytes 13.4 % (1.7-9.3); % Neutrophils 64.4 % (42.2-75.2); Absolute Eosinophils 0.1 10^3/uL (0-0.7); Absolute Immature Granulocytes 0.1 10^3/uL (0-0.05); Absolute Lymphocytes 0.8 10^3/uL (1.2-3.4); Absolute Monocytes 0.6 10^3/uL (0.1-0.6); Absolute Neutrophils 2.7 10^3/uL (1.4-6.5); Hematocrit 32.7 % (39.0-52.0); Hemoglobin 11.2 g/dL (13.0-18.0); Mean Corp Hgb Conc. 34.3 g/dL (33.0-37.0); Mean Corpuscular Hgb 29.7 pg (27.0-31.0); Mean Corpuscular Volume 86.7 fL (80.0-94.0); Mean Platelet Volume 9.8 fL (7.4-10.4); Nucleated Red Blood Cells % 0 % (-); Platelet Count 148 10^3/uL (130-400); Red Blood Cell Count 3.77 10^6/uL (4.70-6.10); Red Cell Dist. Width 15.1 % (11.5-14.5); White Blood Cell Count 4.2 10^3/uL (4.8-10.8)
[2024-05-12 21:32] LABS: Glucose - Point of Care 154 mg/dl (70-99)
[2024-05-12 21:43] LABS: Lactic Acid 1.5 mmol/L (0.7-2.0)
[2024-05-12 22:12] LABS: ALT (SGPT) 295 U/L (0-50); AST (SGOT) 79 U/L (17-59); Albumin 4.3 g/dl (3.5-5.0); Alkaline Phosphatase 102 U/L (38-126); Blood Urea Nitrogen 27 mg/dl (9-20); Calcium 10.3 mg/dl (8.4-10.2); Carbon Dioxide 27 mmol/L (22-30); Chloride 95 mmol/L (98-107); Estimated Creatinine Clearance 10 ml/min; Glucose 174 mg/dl (70-99); Potassium 3.9 mmol/L (3.5-5.1); Sodium 143 mmol/L (135-145); Total Bilirubin 0.8 mg/dl (0.2-1.3); Total Protein 7.5 g/dl (6.3-8.2)
== END 2024-05-13 03:18 | disposition home or self-care (01) ==
LOC: EMR 20:41
PROVIDERS: EMERGENCY PHYSICIAN Emergency Medicine; FAMILY PHYSICIAN Internal Medicine
DX: R11.2 Nausea with vomiting, unspecified (principal); R10.9 Unspecified abdominal pain; I10 Essential (primary) hypertension; F17.200 Nicotine dependence, unspecified, uncomplicated
CPT/HCPCS: 99285; 74176; 80053; 82962; 83605; 85025; 93005

== ENCOUNTER 2024-05-20 13:58 | Inpatient (IN) | payer OTHER, SELFPAY ==
[2024-05-19] VITALS (8 sets, daily range): BP systolic 108–158; BP diastolic 47–75; BMI 13.4
--- NOTE | 2024-05-19 08:19 | ED.GENMED ---
History of Present Illness
<Mark Cook Kristine, DO - Last Filed: 05/19/24 15:48>
General
Chief Complaint: Abdominal Pain
Time Seen by Provider: 05/19/24 08:19
History of Present Illness
History of Present Illness:
TIME OF INITIAL ENCOUNTER: 8:20 AM
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 Was d/c'd on the 05/12 and he came back to ED later that day w/ abd pain. CT and labs 05/12 unremarkable, I spoke to Bel who agreed w/ outpt mngt (he is at [facility]). I spoke to [facility] RN who tells
me he had 'intense pain and guarding while at dialysis today'. However, he denies any significant pain, but does have moderate tenderness yet a soft abdomen.
EXAM:
GENERAL: Appears in no distress
HEENT: Moist oral mucosa
CARDIOVASCULAR: Regular rate and rhythm
PULMONARY: No respiratory distress, breathing is nonlabored, equal and clear breath sounds
ABDOMEN: Soft abdomen but moderate tenderness diffusely, richy present in the midline with no evidence of infection
NEUROLOGIC: The patient has evidence of dementia, not oriented to month or place, strength is equal in all extremities
EXTREMITIES: Moves all extremities equally, no tenderness, no edema
PYSCHIATRIC: Very limited historian, limited insight and judgment
NUMBER AND COMPLEXITY OF PROBLEMS ADDRESSED AT THE ENCOUNTER
� Chronic conditions affecting care: Dementia, high blood pressure, cirrhosis/hep A, GERD, CKD, diabetes, history of alcohol abuse
� Acute Exacerbation and/or Progression of Chronic Illness: The patient has been having intermittent abdominal pain since the surgery
� Differential Diagnosis includes: Bowel obstruction, the patient has had an ileocecectomy therefore highly doubt any other volvulus
AMOUNT AND/OR COMPLEXITY OF DATA TO BE REVIEWED AND ANALYZED
� I performed an independent evaluation of and my interpretation is:
EKG:
CT: CT imaging shows no clear cause for pain
X-rays:
Laboratory Studies: White count is 10.3, hemoglobin 10.2, chemistries unremarkable, creatinine of 12 (CKD on HD), lipase minimally elevated at 396
Other:
� Review of other/old records: I saw this patient 1 week ago on the day he came back from after being discharged from the hospital. He was admitted here earlier this month with a cecal volvulus and had an open ileocecectomy. He
apparently had vomiting at that time but then denied any further symptoms while here.
� Clinical information was obtained by an independent historian: I spoke to the nurse at [facility] at 8:33 AM
� Prescriptions/Medications Considered but not given:
� Further testing considered but not performed:
RISK OF COMPLICATIONS AND/OR MORBIDITY OR MORTALITY OF PATIENT MANAGEMENT
� Social determinants of health affecting care: Resides at [facility]
� Discussion with other providers: I sent message to Dr. Owens covering for general surgery�she recommends obtaining CT imaging with oral contrast.
� Escalation of care including admission/observation vs risk of discharge considered: As patient had recent CT imaging with very similar presentation a week ago, initially held off on labs and CT imaging. Plain film obtained.
ANY OTHER UPDATES:
10:15 AM: I reassessed patient. He drank his oral contrast. He appears comfortable. Planning CT around 11 AM.
1:40 AM: I discussed with general surgery�they want him to be admitted to hospitalist service and placed on Zosyn as he has not changed abdominal examination. I notified Dr. Gutierrez for admission.
<Daniella Frias MD, Resident - Last Filed: 05/19/24 08:43>
History of Present Illness
History of Present Illness:
TIME OF INITIAL ENCOUNTER: 8:20 AM
HPI:
EXAM:
NUMBER AND COMPLEXITY OF PROBLEMS ADDRESSED AT THE ENCOUNTER
� Chronic conditions affecting care: Dementia, high blood pressure, cirrhosis/hep A, GERD, CKD, diabetes, history of alcohol abuse
� Acute Exacerbation and/or Progression of Chronic Illness:
� Differential Diagnosis includes:
AMOUNT AND/OR COMPLEXITY OF DATA TO BE REVIEWED AND ANALYZED
� I performed an independent evaluation of and my interpretation is:
EKG:
CT:
X-rays:
Laboratory Studies:
Other:
� Review of other/old records: I saw this patient 1 week ago on the day he came back from after being discharged from the hospital. He was admitted here earlier this month with a cecal volvulus and had an open ileocecectomy. He
apparently had vomiting at that time but then denied any further symptoms while here.
� Clinical information was obtained by an independent historian:
� Prescriptions/Medications Considered but not given:
� Further testing considered but not performed:
RISK OF COMPLICATIONS AND/OR MORBIDITY OR MORTALITY OF PATIENT MANAGEMENT
� Social determinants of health affecting care:
� Discussion with other providers:
� Escalation of care including admission/observation vs risk of discharge considered:
ANY OTHER UPDATES:
Past History
<Mark Carmona, DO - Last Filed: 05/19/24 15:48>
Past History
ED Past Medical History: HTN, IDDM, Renal failure (Dialysis M-W-F, ), Psychiatric (Depression) and Other (Slight Dementia but able to answer questions, Cirrhosis of the liver, Colitis, Hep A, Anemia, Right arm Fistula)
ED Past Surgical History: None
Social History
Tobacco: Smoker
Alcohol: None
Personal: Single
Living: [facility]
Phy Exam
<Mark Carmona, DO - Last Filed: 05/19/24 15:48>
Physical Exam
Physical Exam:
See HPI
Course
<Mark Carmona DO - Last Filed: 05/19/24 15:48>
Orders/Labs/Results
Orders:
Orders
05/19/24 08:38
Iohexol [Omnipaque] See Protocol PO NOW STA
05/19/24 08:39
CT Abd/pel (oral only)-[facility] Only Urgent
Comment:
Reason For Exam: pain recent ileocectomy
05/19/24 08:56
Complete Blood Count/With Diff Urgent
Comprehensive Metabolic Panel Urgent
Lipase Urgent
05/19/24 13:37
Piperacillin/Tazo 3.375 Gram [Zosyn] 3.375 gram in 50 ml IV NOW
05/19/24 14:07
Admit/Transfer Patient As Directed
Co-Sign Provider:
Level of Care: Observation services
Assign to:: Medical/Surgical
Physician / Group: [email or web address]
Diagnosis: abdominal tenderness POD11 open ileocecectomy with ileocolic anastomosis
05/19/24 14:10
Code Status As Directed
Resuscitation Status: Full Code
Abnormal Lab Results
05/19/24
08:56
RBC 3.47 L 10^6/uL
(4.70-6.10)
Hgb 10.2 L g/dL
(13.0-18.0)
Hct 30.7 L %
(39.0-52.0)
RDW 15.1 H %
(11.5-14.5)
Abs Immat Gran (auto) 0.1 H 10^3/uL
(0-0.05)
Absolute Neuts (auto) 7.6 H 10^3/uL
(1.4-6.5)
Lymphocytes % 16.2 L %
(20.5-51.1)
Carbon Dioxide 21 L mmol/L
(22-30)
BUN 49 H mg/dl
(9-20)
Creatinine 12.0 H* mg/dL
(0.7-1.3)
Glucose 114 H mg/dl
(70-99)
Lipase 396 H U/L
(23-300)
05/19/24 08:56
05/19/24 08:56
Vital Signs
Initial and Last Documented VS:
Initial Vital Signs
Resp BP Pulse Ox
25 126/61 100
05/19/24 08:23 05/19/24 08:23 05/19/24 08:23
Last Documented Vital Signs
Temp Pulse Resp BP Pulse Ox
36.4 C 75 16 131/75 99
05/19/24 14:18 05/19/24 14:18 05/19/24 14:18 05/19/24 14:18 05/19/24 14:18
<Daniella Frias MD, Resident - Last Filed: 05/19/24 08:43>
Orders/Labs/Results
Orders:
Orders
05/19/24 08:38
Iohexol [Omnipaque] See Protocol PO NOW STA
05/19/24 08:39
CT Abd/pel (oral only)-[facility] Only Urgent
Comment:
Reason For Exam: pain recent ileocectomy
05/19/24 08:56
Complete Blood Count/With Diff Urgent
Comprehensive Metabolic Panel Urgent
Lipase Urgent
05/19/24 13:37
Piperacillin/Tazo 3.375 Gram [Zosyn] 3.375 gram in 50 ml IV NOW
05/19/24 14:07
Admit/Transfer Patient As Directed
Co-Sign Provider:
Level of Care: Observation services
Assign to:: Medical/Surgical
Physician / Group: [email or web address]
Diagnosis: abdominal tenderness POD11 open ileocecectomy with ileocolic anastomosis
05/19/24 14:10
Code Status As Directed
Resuscitation Status: Full Code
Abnormal Lab Results
11/22/24
08:56
RBC 3.47 L 10^6/uL
(4.70-6.10)
Hgb 10.2 L g/dL
(13.0-18.0)
Hct 30.7 L %
(39.0-52.0)
RDW 15.1 H %
(11.5-14.5)
Abs Immat Gran (auto) 0.1 H 10^3/uL
(0-0.05)
Absolute Neuts (auto) 7.6 H 10^3/uL
(1.4-6.5)
Lymphocytes % 16.2 L %
(20.5-51.1)
Carbon Dioxide 21 L mmol/L
(22-30)
BUN 49 H mg/dl
(9-20)
Creatinine 12.0 H* mg/dL
(0.7-1.3)
Glucose 114 H mg/dl
(70-99)
Lipase 396 H U/L
(23-300)
05/19/24 08:56
05/19/24 08:56
Vital Signs
Initial and Last Documented VS:
Initial Vital Signs
Resp BP Pulse Ox
25 126/61 100
05/19/24 08:23 05/19/24 08:23 05/19/24 08:23
Last Documented Vital Signs
Temp Pulse Resp BP Pulse Ox
36.4 C 75 16 131/75 99
05/19/24 14:18 05/19/24 14:18 05/19/24 14:18 05/19/24 14:18 05/19/24 14:18
Hueylt;Mark Carmona DO - Last Filed: 05/19/24 15:48>
*Critical Care Note
Total Time (30-74mins, 75-104mins- exclusive of procedures): Not Applicable
ED Attending Note
Hueylt;Mark Carmona, DO - Last Filed: 05/19/24 15:48>
-
Portions of this chart may have been created with voice recognition software.� Occasional wrong word or��sound alike� substitutions may have occurred due to the inherent limitations of voice recognition software.
Discharge Plan
Departure
Patient Disposition: Admit
Date of Disposition: 05/19/24
Time of Disposition: 13:38
Presentation/result/management discussed w/ accepting MD/DO: Hospitalist
Discharge Problem:
Post-op pain
Interventions
Interventions:
*Risk Screen - Suicide Last Done: 05/19/24 08:33
*General Assessment Last Done: 05/19/24 08:33
*Neglect/Abuse Screening Last Done: 05/19/24 08:33
ED- Fall Risk Assessment Last Done: 05/19/24 08:33
*ED COVID-19 Vaccine History Last Done: 05/19/24 08:33
MR-Cebcku-Lfybpgvhcc Assessment Last Done: 05/19/24 08:33
[2024-05-19] MEDS: OMNIPAQUE 50 ML PO (09:00)
[2024-05-19 09:04] LABS: % Basophils 0.7 % (0-2); % Eosinophils 3.8 % (0-6); % Immature Granulocytes 0.5 % (0-0.5); % Lymphocytes 16.2 % (20.5-51.1); % Monocytes 5.6 % (1.7-9.3); % Neutrophils 73.2 % (42.2-75.2); Absolute Basophils 0.1 10^3/uL (0-0.2); Absolute Eosinophils 0.4 10^3/uL (0-0.7); Absolute Immature Granulocytes 0.1 10^3/uL (0-0.05); Absolute Lymphocytes 1.7 10^3/uL (1.2-3.4); Absolute Monocytes 0.6 10^3/uL (0.1-0.6); Absolute Neutrophils 7.6 10^3/uL (1.4-6.5); Hematocrit 30.7 % (39.0-52.0); Hemoglobin 10.2 g/dL (13.0-18.0); Mean Corp Hgb Conc. 33.2 g/dL (33.0-37.0); Mean Corpuscular Hgb 29.4 pg (27.0-31.0); Mean Corpuscular Volume 88.5 fL (80.0-94.0); Mean Platelet Volume 9.2 fL (7.4-10.4); Nucleated Red Blood Cells % 0 % (-); Platelet Count 224 10^3/uL (130-400); Red Blood Cell Count 3.47 10^6/uL (4.70-6.10); Red Cell Dist. Width 15.1 % (11.5-14.5); White Blood Cell Count 10.3 10^3/uL (4.8-10.8)
[2024-05-19 09:28] LABS: ALT (SGPT) 47 U/L (0-50); AST (SGOT) 26 U/L (17-59); Albumin 3.9 g/dl (3.5-5.0); Alkaline Phosphatase 70 U/L (38-126); Blood Urea Nitrogen 49 mg/dl (9-20); Calcium 9.8 mg/dl (8.4-10.2); Carbon Dioxide 21 mmol/L (22-30); Chloride 98 mmol/L (98-107); Estimated Creatinine Clearance 4 ml/min; Glucose 114 mg/dl (70-99); Lipase 396 U/L (23-300); Potassium 4.5 mmol/L (3.5-5.1); Sodium 139 mmol/L (135-145); Total Bilirubin 0.5 mg/dl (0.2-1.3); Total Protein 6.8 g/dl (6.3-8.2); eGFR 4.16
--- NOTE | 2024-05-19 13:36 | CON.GS ---
Addendum entered and electronically signed by Taiwo Owens MD 05/19/24 17:02:
Patient seen and examined. Agree with assessment plan as documented below.
Patient is a 68 yo M with a PMH of dementia, GERD, IDDM, ESRD via L AVF on HD, liver dz, chronic anemia and recent admission for cecal volvulus from 05/07-05/12 with exploratory laparotomy and ileocecectomy with necrotic cecum noted
intraoperatively. Since discharge he has read presented to the ER with abdominal discomfort. Workup has been largely unremarkable. Current history is limited due to patient's cognitive status. He does report some abdominal discomfort
particularly with exam. He also reports some mild nausea and regurg. Per report from the ED he had significant abdominal pain during HD today which prompted representation to the ER.
Gen: NAD
Abd: soft, mild fullness in RLQ, tender in RLQ, ND, no diffuse peritonitis, midline c/d/i richy in place
Labs and CT scan imaging were reviewed.
Patient is a 68 yo M s/p exploratory laparotomy and ileocecectomy with necrotic cecum on 05/07. He returns through the ED with reported vomiting after HD and new RLQ tenderness with distention.
Afebrile with stable vital signs. No leukocytosis. CT imaging with no IV contrast but PO contrast given was done in the ED without evidence of bowel obstruction, although there is a large amount of stool in the rectum with distention. There are
small foci of extraluminal air adjacent to the inferior margin of the ileocolonic anastomosis. A small amount of fluid is in the right upper quadrant adjacent the liver, and this appears slightly increased from previous examination on read. No CT
evidence for a drainable abscess collection.
Given small amount of fluid and air near new anastomosis and new RLQ tenderness, would admit to the medical service for IV abx and observation.
--No surgical intervention planned emergently, clear liquids as tolerated for now
--Start IV Zosyn and follow exams
--Start bowel regimen with Colace BID. Enema today and as needed.
--Trend labs
--Medical care as per primary team
Original Note:
Medical History
-
Chief Complaint: 'spitting up'
History of Present Illness:
Mr. Land is a 68 yo male with a h/o ESRD via left AVF on HD, liver dz, chronic anemia and recent admission for cecal volvulus from 05/07-05/12 with exploratory laparotomy and ileocecectomy with necrotic cecum noted intraoperatively. He had a
good recovery after his surgery and was discharged back to SNF once he was tolerating a diet with good pain control. He has returned twice since his discharge to the ED. Initially, he returned on date of discharge with nausea and vomiting and again
today for the same. He reports he was 'spitting up' after dialysis. He does report he has been eating since discharge without difficulty. He has constipation at baseline. On exam, he has RLQ tenderness which was not present on date of discharge with
palpable localized distention to the bilateral lower quadrants. His midline incision is healing well without erythema and intact staple line.
Past Medical History
Past Medical History: HTN, Renal Failure (ESRD on HD) and Other (dementia, anemia, previous etoh abuse with liver dz)
Past Surgical History: Appendectomy (with ileocecectomy), Bowel Resection (ex lap with ileocecectomy for cecal volvulus) and Other (left AVF)
Social History
Tobacco: Former Smoker
Alcohol: Former
Family History
Family History: Reviewed & Not Pertinent
Allergies / Home Medications
Allergy/AdvReac Type Severity Reaction Status Date / Time
tuberculin, purified protein Allergy Unknown Unknown Verified 05/07/24 14:31
deriva
�Medication �Instructions �Recorded �Confirmed �Type
acetaminophen 325 mg tablet 650 mg PO Q6HPRN PRN MILD PAIN 06/08/22 05/19/24 History
bisacodyl 10 mg rectal suppository 10 mg UT DAILYPRN PRN IF MOM IS 06/08/22 05/19/24 History
INEFFECTIVE
calcium 500 mg (as 1 tab PO DAILY Supplement 06/08/22 05/19/24 History
carbonate)-vitamin D3 5 mcg (200
unit) tablet
donepezil 10 mg tablet (Aricept) 10 mg PO HS Mental Health/Anxiety 06/08/22 05/19/24 History
famotidine 20 mg tablet (Pepcid) 20 mg PO BID Gastrointestinal issue 06/08/22 05/19/24 History
fluoxetine 10 mg capsule (Prozac) 10 mg PO DAILY Mental 06/08/22 05/19/24 History
Health/Anxiety
hydralazine 50 mg tablet 50 mg PO TID Blood pressure 06/08/22 05/19/24 History
ughzol-bnoyispx-zcongde 1 cap PO AC Gastrointestinal Issue 06/08/22 05/19/24 History
5,000-17,000-24,000 unit capsule,
delayed rel (Zenpep)
sorbitol 70 % solution 30 ml PO DAILYPRN PRN CONSTIPATION 06/08/22 05/19/24 History
pantoprazole 40 mg granules 40 mg PO DAILY #30 ea 06/12/22 05/19/24 Rx
delayed-release for susp in packet
(Protonix)
clonidine HCl 0.1 mg tablet 0.1 mg PO BIDPRN PRN SBP>170 10/12/23 05/19/24 History
cholecalciferol (vitamin D3) 25 50 mcg PO HS Supplement 04/19/24 05/19/24 History
mcg (1,000 unit) tablet
insulin lispro 100 unit/mL 2 unit SC AC Diabetes 04/19/24 05/19/24 History
subcutaneous pen (Humalog KwikPen
(U-100) Insulin)
latanoprost 0.005 % eye drops 1 drp BOTH EYES HS Eye Condition 04/19/24 05/19/24 History
nystatin 100,000 unit/mL oral 0 ml mucous membrane BID Skin 04/19/24 05/19/24 History
suspension Issues
ondansetron HCl 4 mg tablet 4 mg PO Q8HPRN PRN nausea with 04/19/24 05/19/24 History
dialysis
sevelamer carbonate 800 mg tablet 800 mg PO MEALS Kidney Disease 04/19/24 05/19/24 History
(Renvela)
sodium polystyrene sulfonate 15 15 g PO DAILYPRN PRN missed 04/19/24 05/19/24 History
gram/60 mL oral suspension dialysis day
B-complex with vitamin C 1 tab PO DAILY Supplement 05/07/24 05/19/24 History
B-complex with vitamin C 1 tab PO DAILY 05/19/24 05/19/24 History
insulin glargine 100 unit/mL (3 7 unit SC HS 05/19/24 05/19/24 History
mL) subcutaneous pen
nifedipine 90 mg tablet,extended 90 mg PO BID 05/19/24 05/19/24 History
release 24 hr (Procardia XL)
Review of Systems
-
Unable to obtain full review of systems at this time due to: Dementia
History Source: Patient
All other systems: Negative unless noted
A 10 point review of systems was completed, and was negative except as per HPI.
Physical Exam
Vital Signs
Temp Pulse Resp BP Pulse Ox
97.7 F 60 23 126/61 98
05/19/24 08:33 05/19/24 08:33 05/19/24 08:33 05/19/24 08:33 05/19/24 08:33
05/18/24 05/19/24 05/20/24
06:59 06:59 06:59
Actual Weight 46.1 kg
Body Mass Index (BMI) 13.4
Lab Results
05/19/24 08:56
05/19/24 08:56
WBC 10.3 10^3/uL (4.8-10.8) 05/19/24 08:56
Hgb 10.2 g/dL (13.0-18.0) L 05/19/24 08:56
Hct 30.7 % (39.0-52.0) L 05/19/24 08:56
Plt Count 224 10^3/uL (130-400) D 05/19/24 08:56
Abs Immat Gran (auto) 0.1 10^3/uL (0-0.05) H 05/19/24 08:56
Neutrophils % 73.2 % (42.2-75.2) 05/19/24 08:56
Physical Exam
General: Well Developed and Well Nourished
HEENT: Moist Mucous Membranes
Respiratory: Non Labored Respirations
GI: Soft, Tender (RLQ) and Distended (localized to lower abdomen)
Skin: Warm and Dry
Neuro: Awake and Alert
Psych: Calm
Data Reviewed
-
CT Scan: Image Personally Visualized and interpreted, Report Reviewed by me, Discussed with Physician and Discussed with Patient
Labs: Labs Reviewed by me, Discussed with Physician and Discussed with Patient
Old Records: Reviewed
Assessment / Plan
-
Mr. Land is a 68 yo male with a h/o ESRD via left AVF on HD, liver dz, chronic anemia and recent admission for cecal volvulus from 05/07-05/12 with exploratory laparotomy and ileocecectomy with necrotic cecum noted intraoperatively. He had a
good recovery after his surgery and was discharged back to SNF once he was tolerating a diet with good pain control. He returns through the ED with reported vomiting after HD and new RLQ tenderness with distention.
Afebrile with stable vital signs. No leukocytosis. CT imaging with no IV contrast but PO contrast given was done in the ED without evidence of bowel obstruction, although there is a large amount of stool in the rectum with distention. There are
small foci of extraluminal air adjacent to the inferior margin of the ileocolonic anastomosis. A small amount of fluid is in the right upper quadrant adjacent the liver, and this appears slightly increased from previous examination on read. No CT
evidence for a drainable abscess collection.
Given small amount of fluid and air near new anastomosis and new RLQ tenderness, would admit to the medical service for IV abx and observation.
--No surgical intervention planned emergently, clear liquids as tolerated for now
--Start IV zosyn and follow exams
--Start bowel regimen with Colace BID. Enema today and as needed.
--Trend labs
--Medical care as per primary team
--- NOTE | 2024-05-19 14:00 | HPS.HSE ---
Family Physician
-
Family Physician: Taiwo Madrid, DO
Chief Complaint
-
abdominal pain at HD
History of Present Illness
68M NH Res HX ESRD on HD ( MWF ) Cirrhosis of liver, Colitis, NIDDM, Depression and MCI vs Dementia seen at ER:
- POD #11 s/p ileocecectomy for cecal volvulus (Dr Michael Gray) who was d/c' d on the 05/12
- Same day he came back to ED w/ abd pain. CT and labs 05/12 unremarkable,. ER d/w Dr Staples who agreed w/ outpt mngt
- today [place] RN reports to ER attd 'intense pain and guarding while at dialysis today'. However, he denies any significant pain
- He does have moderate tenderness yet a soft abdomen.
- Per Surgeon , abdomen exam has changed from last time.
- Demi present / no sign of infection.
- currently appears comfortable
Medical History
Past Medical History
Past Medical History: Reports IDDM, Renal Failure (ESRD on HD ( MWF ) ) and Psychiatric (dementia )
Past Surgical History: Reports Other (not available )
Social History
Tobacco: Non-smoker
Alcohol: None
Living: Penitentiary
Family History
Family History: Not pertinent
Allergies / Home Medications
Allergies reflects when Allergies were last updated in [facility].
Home Medications with original date entered in [facility]
Allergy/Medication List:
Allergies
Allergy/AdvReac Type Severity Reaction Status Date / Time
tuberculin, purified protein Allergy Unknown Unknown Verified 06/07/22 18:05
deriva
Home Medications
amoxicillin 875 mg-potassium clavulanate 125 mg tablet 1 tab PO BID #14 tabs 06/07/22
If medication reconciliation has not been performed, why?: Medication List N/A
Review of Systems
-
EENT: Reports No Symptoms
Respiratory: Reports No Symptoms
Cardiac: Reports No Symptoms
Abdomen/GI: Reports Abdominal Pain; Denies Nausea or Vomiting
: Reports No Symptoms
Musculoskeletal: Reports No Symptoms
Skin: Reports No Symptoms
Neurological: Reports No Symptoms
Endocrine: Reports No Symptoms
Hematologic/Lymphatic: Reports No Symptoms
Psych: Reports No Symptoms
Physical Exam
Vital Signs
Vital Signs
Temp Pulse Resp BP Pulse Ox
97.7 F 60 23 126/61 98
05/19/24 08:33 05/19/24 08:33 05/19/24 08:33 05/19/24 08:33 05/19/24 08:33
Physical Exam
General: Appears in Distress, Pain and Other (cahectic and looks toxic)
HEENT: Anicteric
Respiratory: Clear
Cardiac: S1/S2 and Regular Rhythm
Breast: Deferred by me
GI: Tender (diffusely ) and Distended
Rectal: Deferred by Provider
Genito-urinary: Deferred by me
Musculoskeletal: No Edema
Skin: Other (Lt arm AVF )
Psych: No Intact Judgment/Insight
Laboratory Results
-
05/19/24 08:56
05/19/24 08:56
Laboratory Results
Total Bilirubin 0.5 mg/dl (0.2-1.3) 05/19/24 08:56
AST 26 U/L (17-59) 05/19/24 08:56
ALT 47 U/L (0-50) 05/19/24 08:56
Alkaline Phosphatase 70 U/L (38-126) 05/19/24 08:56
Lipase 396 U/L (23-300) H 05/19/24 08:56
Data Reviewed
-
CT Scan: Report Reviewed by me
Lab Data: Labs Reviewed by me
Old Records: Reviewed
Impression/Plan
-
Reviewed VS: unremarkable
Vital Signs
Temp Pulse Resp BP Pulse Ox
97.7 F 60 23 126/61 98
05/19/24 08:33 05/19/24 08:33 05/19/24 08:33 05/19/24 08:33 05/19/24 08:33
Data
05/12/24 05/12/24 05/19/24
06:57 21:22 08:56
Hgb 8.5 L 11.2 L D 10.2 L
Carbon Dioxide 21 L
BUN 49 H
Creatinine 9.1 H* 5.1 H* 12.0 H*
eGFR 5.79 11.60 4.16
Lipase [address]/pel (oral only)-[facility] Only
- Small amount of free intraperitoneal air is present, decreased from examination of May 12, 2024.
- There is a small amount of fluid in the right upper quadrant adjacent the liver, and this appears slightly increased from previous examination.
- There is a subtle focus of decreased density within the posterior right lobe liver, seen on image 19 of series 201, and this measures 2.7 cm transverse by 1.2 cm AP by 3.0 cm craniocaudal. This is subtly present on prior CT scan appears slightly
smaller. This does not appear to be present on CT examinations of May 09, 2024 and May 07, 2024. Exact etiology of this finding is uncertain. Consideration for continued follow-up.
- No evidence for bowel obstruction.
- Small foci of extraluminal air inferior to the ileocolonic anastomosis, also present on previous examination. No evidence for abscess. There is no evidence for oral contrast extravasation by CT.
Last hospitalist admission: DOA 05/07/24 - 05/12/24
P Dx & OR: acute cecal volvulus S/P exploratory laparotomy and open ileocecectomy with ileocolic anastomosis 05/07/24
ASSESSMENT & PLAN
S/P exploratory laparotomy and open ileocecectomy with ileocolic anastomosis 05/07/24 Intubated post op -extubated 05/08/24PM, -NGT removed 05/09/24
- Per Surgeon at ER , abdomen exam is changed from last time with moderate tenderness yet a soft abdomen.
- see CT AP as above
- clear till further eval for CRS
- Zosyn
- PRN Narcotic analgesia
- GS ( Dr jenkins ) was consulted by ER
Essential hypertension
-Hydralazine PRN
-cont Procardia XL/Hydralazine
ESRD:
- HD today at [facility]
- on HD M/W/F
- Nephrology consult
HX Cholelithiasis: asymptomatic
Normal AST/ALT. AP
DM2:
- cont Lantus
- Hold premeal aspart due to only on clear
- mod SSI
DVT Px: SCD
Full code
IP MS
--- NOTE | 2024-05-19 14:18 | EDRN ---
Dr Gutierrez currently at the pts bedside
--- NOTE | 2024-05-19 14:21 | W.CON.NEPH ---
Consultation
-
Date/Time Consultation Requested: 05/19/24 215pm
Date/Time Consultation Performed: 05/19/2024 2:21 PM
Requesting Provider: Dr. Gutierrez
Performing Provider: Dr. Jeffries
Reason for Consultation: ESRD
Medical History
-
Chief Complaint: ESRD
History of Present Illness:
This is a 68-year-old gentleman who has end-stage liver disease due to alcoholism, ESRD on dialysis Fridays via a left AV fistula, Diabetes type II on insulin therapy, hypertension multidrug regimen. He resides at [facility]
prison. He receives dialysis Fridays and has had no current issues on Wednesday. He was recently seen from 05/07 through 05/12/2024 with exploratory laparotomy and ilio cecotomy with necrotic cecum noted Intra-operatively.
He was sent to emergency room because of vomiting and abdominal pain. We were consulted for his end-stage renal disease management.
Past Medical History
ESRD, left AV fistula, hypertension, diabetes mellitus type 2, dementia, ESLD
Social History
Tobacco: Non-Smoker
Alcohol: Former
Allergies / Home Medications
Allergy/AdvReac Type Severity Reaction Status Date / Time
tuberculin, purified protein Allergy Unknown Unknown Verified 05/07/24 14:31
deriva
�Medication �Instructions �Recorded �Confirmed �Type
acetaminophen 325 mg tablet 650 mg PO Q6HPRN PRN MILD PAIN 06/08/22 05/19/24 History
bisacodyl 10 mg rectal suppository 10 mg NH DAILYPRN PRN IF MOM IS 06/08/22 05/19/24 History
INEFFECTIVE
calcium 500 mg (as 1 tab PO DAILY Supplement 06/08/22 05/19/24 History
carbonate)-vitamin D3 5 mcg (200
unit) tablet
donepezil 10 mg tablet (Aricept) 10 mg PO HS Mental Health/Anxiety 06/08/22 05/19/24 History
famotidine 20 mg tablet (Pepcid) 20 mg PO BID Gastrointestinal issue 06/08/22 05/19/24 History
fluoxetine 10 mg capsule (Prozac) 10 mg PO DAILY Mental 06/08/22 05/19/24 History
Health/Anxiety
hydralazine 50 mg tablet 50 mg PO TID Blood pressure 06/08/22 05/19/24 History
dxwfvh-ihdneukr-pterzdx 1 cap PO AC Gastrointestinal Issue 06/08/22 05/19/24 History
5,000-17,000-24,000 unit capsule,
delayed rel (Zenpep)
sorbitol 70 % solution 30 ml PO DAILYPRN PRN CONSTIPATION 06/08/22 05/19/24 History
pantoprazole 40 mg granules 40 mg PO DAILY #30 ea 06/12/22 05/19/24 Rx
delayed-release for susp in packet
(Protonix)
clonidine HCl 0.1 mg tablet 0.1 mg PO BIDPRN PRN SBP>170 10/12/23 05/19/24 History
cholecalciferol (vitamin D3) 25 50 mcg PO HS Supplement 04/19/24 05/19/24 History
mcg (1,000 unit) tablet
insulin lispro 100 unit/mL 2 unit SC AC Diabetes 04/19/24 05/19/24 History
subcutaneous pen (Humalog KwikPen
(U-100) Insulin)
latanoprost 0.005 % eye drops 1 drp BOTH EYES HS Eye Condition 04/19/24 05/19/24 History
nystatin 100,000 unit/mL oral 0 ml mucous membrane BID Skin 04/19/24 05/19/24 History
suspension Issues
ondansetron HCl 4 mg tablet 4 mg PO Q8HPRN PRN nausea with 04/19/24 05/19/24 History
dialysis
sevelamer carbonate 800 mg tablet 800 mg PO MEALS Kidney Disease 04/19/24 05/19/24 History
(Renvela)
sodium polystyrene sulfonate 15 15 g PO DAILYPRN PRN missed 04/19/24 05/19/24 History
gram/60 mL oral suspension dialysis day
B-complex with vitamin C 1 tab PO DAILY Supplement 05/07/24 05/19/24 History
B-complex with vitamin C 1 tab PO DAILY 05/19/24 05/19/24 History
insulin glargine 100 unit/mL (3 7 unit SC HS 05/19/24 05/19/24 History
mL) subcutaneous pen
nifedipine 90 mg tablet,extended 90 mg PO BID 05/19/24 05/19/24 History
release 24 hr (Procardia XL)
Review of Systems
-
All other systems: Negative unless noted
Abdomen/GI: Abdominal Pain and Vomiting (Although patient asking to eat chicken wings )
: No Symptoms and Other (anuric)
Physical Exam
Vital Signs
Vital Signs
Temp Pulse Resp BP Pulse Ox
97.6 F 75 16 131/75 99
05/19/24 14:18 05/19/24 14:18 05/19/24 14:18 05/19/24 14:18 05/19/24 14:18
Lab Results
05/19/24 08:56
05/19/24 08:56
WBC 10.3 10^3/uL (4.8-10.8) 05/19/24 08:56
RBC 3.47 10^6/uL (4.70-6.10) L 05/19/24 08:56
Hgb 10.2 g/dL (13.0-18.0) L 05/19/24 08:56
Hct 30.7 % (39.0-52.0) L 05/19/24 08:56
Plt Count 224 10^3/uL (130-400) D 05/19/24 08:56
Sodium 139 mmol/L (135-145) 05/19/24 08:56
Potassium 4.5 mmol/L (3.5-5.1) 05/19/24 08:56
Chloride 98 mmol/L (98-107) 05/19/24 08:56
Carbon Dioxide 21 mmol/L (22-30) L 05/19/24 08:56
BUN 49 mg/dl (9-20) H 05/19/24 08:56
Creatinine 12.0 mg/dL (0.7-1.3) H* 05/19/24 08:56
eGFR 4.16 05/19/24 08:56
Glucose 114 mg/dl (70-99) H 05/19/24 08:56
Calcium 9.8 mg/dl (8.4-10.2) 05/19/24 08:56
Albumin 3.9 g/dl (3.5-5.0) 05/19/24 08:56
Physical Exam
Patient is awake alert oriented and in no distress. Mood and affect were pleasant, insight and judgment were good. Pupils are equal round and reactive to light, extraocular movements are intact, sclera were anicteric. Hearing was normal, ears and
nose are intact. Oropharynx was clear. Neck was supple with trachea midline and no thyromegaly. Heart was regular rate and rhythm without rubs. Lower extremities without edema. Lungs were clear to auscultation bilaterally and with normal
excursion. Abdomen was soft,right lower quadrant tendersness, with decreased bowel sounds, and no hepatosplenomegaly. Skin was without rash and with normal turgor. Left upper arm AV fistula with good thrill and bruit
Vascular Access: AVF (left)
Data Reviewed
-
CT Scan: Report Reviewed by me (Small amount of fluid in right upper quadrant adjacent to liver, no bowel obstruction )
Labs: Labs Reviewed by me (BMP CBC)
Old Records: Reviewed (Nephrology consultation reviewed from March 2024: for esrd)
Assessment/Plan
-
Impression:
ESRD
s/p Ileocecectomy for cecal volvulus
Hypertension
Diabetes mellitus type 2
Plan
Patient without acute need for dialysis
Hd will be planned for Wednesday
Fluid restriction of 50 ounces a day
RYAN on dialysis re: anemia
No heparin on dialysis
on iv zosyn
Maintain oral antihypertensives if patient remains po
[2024-05-19] MEDS: ZOSYN 50 IV (14:57)
--- NOTE | 2024-05-19 15:31 | EDRN ---
this RN entered the pts room to check on the pt and noticed that the pt was soiled with feces, this RN and Glenis RN cleaned the pt, and placed a new gown, pad, brief, and linens in place, the pt was repositioned for comfort, no s/s of distress, the
pt denies needing anything at this time, will continue to monitor the pt closely
--- NOTE | 2024-05-19 15:39 | EDRN ---
this RN called the receiving unit and notified them that paper report was going to be tubed up
[2024-05-19] MEDS: APRESOLINE 50 MG PO ×2 (18:35→21:03)
[2024-05-19] MEDS: RENVELA 800 MG PO (18:35)
[2024-05-19] MEDS: FLEET MINERAL OIL ENEMA 133 ML RECTAL (19:47)
[2024-05-19] MEDS: COLACE 200 MG PO (21:01)
[2024-05-19] MEDS: XALATAN OPHTHALMIC SOLUTION 1 DROP BOTH EYES (21:01)
[2024-05-19] MEDS: PROCARDIA XL (EXTENDED RELEASE) 90 MG PO (21:02)
[2024-05-19 21:30] LABS: Glucose - Point of Care 190 mg/dl (70-99)
[2024-05-20] MEDS: ZOSYN 50 IV ×2 (02:55→17:19)
[2024-05-20 06:00] VITALS: BMI 13.9
[2024-05-20 07:15] LABS: % Basophils 1.2 % (0-2); % Eosinophils 5.8 % (0-6); % Immature Granulocytes 0.5 % (0-0.5); % Monocytes 7.5 % (1.7-9.3); Absolute Basophils 0.1 10^3/uL (0-0.2); Absolute Eosinophils 0.3 10^3/uL (0-0.7); Absolute Lymphocytes 1.2 10^3/uL (1.2-3.4); Absolute Monocytes 0.4 10^3/uL (0.1-0.6); Absolute Neutrophils 3.7 10^3/uL (1.4-6.5); Hematocrit 28.7 % (39.0-52.0); Hemoglobin 9.9 g/dL (13.0-18.0); Mean Corp Hgb Conc. 34.5 g/dL (33.0-37.0); Mean Corpuscular Hgb 29.6 pg (27.0-31.0); Mean Corpuscular Volume 85.9 fL (80.0-94.0); Mean Platelet Volume 9.5 fL (7.4-10.4); Nucleated Red Blood Cells % 0 % (-); Platelet Count 242 10^3/uL (130-400); Red Blood Cell Count 3.34 10^6/uL (4.70-6.10); Red Cell Dist. Width 14.9 % (11.5-14.5); White Blood Cell Count 5.9 10^3/uL (4.8-10.8)
[2024-05-20 07:24] LABS: INR 1.17; PT 15.2 Sec (11.4-14.6)
[2024-05-20 07:55] LABS: Blood Urea Nitrogen 53 mg/dl (9-20); Calcium 9.4 mg/dl (8.4-10.2); Carbon Dioxide 21 mmol/L (22-30); Chloride 97 mmol/L (98-107); Glucose 127 mg/dl (70-99); Potassium 4.2 mmol/L (3.5-5.1); Sodium 137 mmol/L (135-145)
[2024-05-20 08:18] LABS: Glucose - Point of Care 124 mg/dl (70-99)
[2024-05-20 08:19] LABS: Estimated Creatinine Clearance 3 ml/min; eGFR 3.51
[2024-05-20 08:29] VITALS: BP 133/52
[2024-05-20] MEDS: PROCARDIA XL (EXTENDED RELEASE) 90 MG PO ×2 (08:52→21:16)
[2024-05-20] MEDS: PROTONIX 40 MG PO (08:52)
[2024-05-20] MEDS: RENVELA 800 MG PO ×3 (08:52→17:15)
[2024-05-20] MEDS: COLACE 200 MG PO ×2 (08:53→21:16)
[2024-05-20] MEDS: PROZAC 10 MG PO (08:53)
[2024-05-20] MEDS: APRESOLINE 50 MG PO ×3 (08:53→22:36)
--- NOTE | 2024-05-20 09:28 | W.PN.HOSP.TC ---
Today's Communication/Plan
-
IV antibiotics. Full liquid diet.
Assessment / Plan
Assessment / Plan
Physical exam:
General: Acutely ill
HEENT: Normocephalic, Atraumatic and Moist Mucous Membranes
Respiratory: Clear to Auscultation; Negative Wheezes, Rales or Rhonchi
Cardiac: Regular Rhythm and S1/S2
GI: Soft, non tender and Nondistended. Postop findings with midline incision without problems.
Musculoskeletal: No Clubbing, No Cyanosis and No Edema
Neuro: Awake, Alert and Oriented
Psych: Calm
A/P:
Abdominal pain with N/V concerns for ?peritonitis/ Recent exp lap with ileocecectomy for cecal volvulus with necrotic cecum on 05/07:
H&P not uploaded yet
Appreciated colorectal surgery consult
Abnormal CT scan of the abdomen but no evidence of SBO
Continue full liquid diet today
Continue broad-spectrum antibiotics, IV Zosyn
WBC 5.9, Hb 9.9
End-stage renal disease on hemodialysis:
Nephrology consulted appreciated
Plan for HD per nephrology--> plan to dialyze on Wednesday
Hypertension:
Continue hydralazine p.o. 3 times daily
Continue nifedipine XL 90 mg p.o. twice a day
Monitor blood pressure and adjust medications accordingly
Diabetes mellitus type 2:
Start insulin sliding scale
Resume Lantus over the next 24 hours
Monitor blood sugars and adjust medications according
Dementia:
Monitor behavior and mental status
DVT prophylaxis:
SCDs
CODE STATUS:
Full code
Anticipated Discharge: > 48 hours
Subjective/Interval History
-
Date of Service: May 20, 2024
Patient denies abdominal pain nausea or vomiting today. He is having bowel movements. Afebrile
Objective Data
-
Labs:
Laboratory Results
05/20/24
06:51
WBC 5.9
Hgb 9.9 L
Hct 28.7 L
Plt Count 242
PT 15.2 H
INR 1.17
Sodium 137
Potassium 4.2
Chloride 97 L
Carbon Dioxide 21 L
BUN 53 H
Creatinine 13.8 H*
Glucose 127 H
Calcium 9.4
Vital Signs:
Vital Signs
Temp Pulse Resp BP Pulse Ox
97.7 F 66 21 133/52 100
05/20/24 08:29 05/20/24 08:29 05/20/24 08:29 05/20/24 08:53 05/20/24 08:29
I&O
05/19/24 05/20/24 05/21/24
06:59 06:59 06:59
Intake Total 530 / 530
Balance 530 / 530
--- NOTE | 2024-05-20 10:18 | W.PN.GS2 ---
Addendum entered and electronically signed by GENEVA Bejarano 05/20/24 16:42:
Midline incision well healed: richy removed at bedside without complication
Original Note:
Today's Communication / Plan
-
FLD
Continue ABX
Assessment / Plan
-
68 yo M s/p exploratory laparotomy and ileocecectomy with necrotic cecum on 05/07. He returns through the ED with reported vomiting after HD and new RLQ tenderness with distention with small amount of fluid and air near new anastomosis
AFVSS
No leukocytosis
Tenderness now resolved
Passing flatus/stools with bowel regimen
--Advance to FLD
--Continue IV Zosyn and follow exams
--Continue bowel regimen
--Trend labs
--Medical care as per primary team
Subjective Data
-
Date of Service: May 20, 2024
Patient seen and examined at bedside with Dr. chavez. Denies n/v. Notes he is hungry. Passing flatus and stools. Denies pain
Objective Data
-
Intake and Output
05/19/24 05/20/24 05/21/24
06:59 06:59 06:59
Intake Total 530 / 530
Balance 530 / 530
Intake:
Oral fluids 480 / 480
IV piggybacks 50 / 50
Other:
Number of approximated SMALL 1
amounts of urine
Vital Signs
Temp Pulse Resp BP Pulse Ox
97.7 F 66 21 133/52 100
05/20/24 08:29 05/20/24 08:29 05/20/24 08:29 05/20/24 08:53 05/20/24 08:29
Lab Results
05/20/24 06:51
05/20/24 06:51
Calcium 9.4 mg/dl (8.4-10.2) 05/20/24 06:51
Total Bilirubin 0.5 mg/dl (0.2-1.3) 05/19/24 08:56
AST 26 U/L (17-59) 05/19/24 08:56
ALT 47 U/L (0-50) 05/19/24 08:56
Alkaline Phosphatase 70 U/L (38-126) 05/19/24 08:56
Total Protein 6.8 g/dl (6.3-8.2) 05/19/24 08:56
Albumin 3.9 g/dl (3.5-5.0) 05/19/24 08:56
Physical Exam
-
NAD
ABD soft, nt, nd
[2024-05-20 12:44] VITALS: BMI 17.1
[2024-05-20] MEDS: HEPARIN 500 UNITS IV ×2 (12:50→13:50)
--- NOTE | 2024-05-20 13:25 | CM ---
Reviewed chart, placed a call to patient's brother for information for assessment however there was no answer and no voice mail to leave a message. Placed a call to [facility] and left message for DON to return call to establish baseline level of
functioning as well as bed hold. Will await return call.
Plan: Case mangement will continue to follow and assist with discharge planning. Tentative plan is back to [facility].
[2024-05-20] MEDS: RETACRIT 3000 UNITS IV (13:34)
[2024-05-20] MEDS: FLEXBUMIN 25% FOR HEMODIALYSIS 12.5 GRAMS IV (13:34)
[2024-05-20] MEDS: MANNITOL 25% 12.5 GRAMS IV (13:34)
--- NOTE | 2024-05-20 14:13 | W.PN.NEPH.HD ---
Assessment
-
pt evaluated during HD , missed HD yesterday
vitals stable
AVF function fine
below EDW, minimal UF only
BP soft
on full liquid diet
next HD on Wednesday
Progress Note - Hemodialysis
-
Date of Service: May 20, 2024
Duration: 30 minutes and 3 hours
Potassium Bath: 3
Calcium Bath: 2.5
Opti-Dialyzer: 160
Ultrafiltration: Other (0.5kg)
Blood Flow: 400
Dialysate Flow: 600
Heparin: yesx2
EPO: 3000
--- NOTE | 2024-05-20 14:25 | PTCARENOTE ---
patient passing flatus and stools. tolerating full liquid diet. reports he 'is hungry'. no pain, receiving hemodialysis at present, vss, will continue to monitor.
--- NOTE | 2024-05-20 15:14 | PTCARENOTE ---
patient refusing teds and scd's. Dr. Medina made aware, no new orders obtained, will continue to monitor.
[2024-05-20 16:16] VITALS: BP 129/55
[2024-05-20 17:09] LABS: Glucose - Point of Care 124 mg/dl (70-99)
[2024-05-20] MEDS: NOVOLOG FLEXPEN-LOW RESISTANCE SC (17:10)
[2024-05-20 21:53] LABS: Glucose - Point of Care 148 mg/dl (70-99)
[2024-05-20] MEDS: XALATAN OPHTHALMIC SOLUTION 1 DROP BOTH EYES (22:36)
[2024-05-20 23:36] VITALS: BP 135/60
[2024-05-21] MEDS: ZOSYN 50 IV ×2 (02:51→14:54)
[2024-05-21 04:48] VITALS: BMI 16.9
[2024-05-21 06:21] LABS: % Basophils 1.4 % (0-2); % Eosinophils 4.6 % (0-6); % Immature Granulocytes 0.4 % (0-0.5); % Lymphocytes 31.5 % (20.5-51.1); % Monocytes 10.2 % (1.7-9.3); % Neutrophils 51.9 % (42.2-75.2); Absolute Basophils 0.1 10^3/uL (0-0.2); Absolute Eosinophils 0.2 10^3/uL (0-0.7); Absolute Lymphocytes 1.6 10^3/uL (1.2-3.4); Absolute Monocytes 0.5 10^3/uL (0.1-0.6); Absolute Neutrophils 2.6 10^3/uL (1.4-6.5); Hematocrit 28.6 % (39.0-52.0); Hemoglobin 9.7 g/dL (13.0-18.0); Mean Corp Hgb Conc. 33.9 g/dL (33.0-37.0); Mean Corpuscular Hgb 29.4 pg (27.0-31.0); Mean Corpuscular Volume 86.7 fL (80.0-94.0); Nucleated Red Blood Cells % 0 % (-); Platelet Count 239 10^3/uL (130-400); Red Cell Dist. Width 14.6 % (11.5-14.5)
[2024-05-21 06:32] VITALS: BMI 17.0
[2024-05-21 06:57] LABS: Blood Urea Nitrogen 18 mg/dl (9-20); Calcium 9.1 mg/dl (8.4-10.2); Carbon Dioxide 27 mmol/L (22-30); Chloride 96 mmol/L (98-107); Estimated Creatinine Clearance 6 ml/min; Glucose 113 mg/dl (70-99); Potassium 4.4 mmol/L (3.5-5.1); Sodium 137 mmol/L (135-145); eGFR 7.42
[2024-05-21 08:21] LABS: Glucose - Point of Care 116 mg/dl (70-99)
[2024-05-21 08:36] VITALS: BP 118/44
--- NOTE | 2024-05-21 09:09 | W.PN.HOSP.TC ---
Today's Communication/Plan
-
IV antibiotics. Advance diet as tolerated.
Assessment / Plan
Assessment / Plan
Physical exam:
General: Acutely ill
HEENT: Normocephalic, Atraumatic and Moist Mucous Membranes
Respiratory: Clear to Auscultation; Negative Wheezes, Rales or Rhonchi
Cardiac: Regular Rhythm and S1/S2
GI: Soft, non tender and Nondistended. Postop findings with midline incision without problems.
Musculoskeletal: No Clubbing, No Cyanosis and No Edema
Neuro: Awake, Alert and Oriented
Psych: Calm
A/P:
Abdominal pain with N/V concerns for ?peritonitis/ Recent exp lap with ileocecectomy for cecal volvulus with necrotic cecum on 05/07:
H&P not uploaded yet
Appreciated colorectal surgery consult
Abnormal CT scan of the abdomen but no evidence of SBO
Continue full liquid diet and possibly advance into low residue diet today if cleared by colorectal surgery
Continue broad-spectrum antibiotics, IV Zosyn
WBC 5, Hb 9.7
End-stage renal disease on hemodialysis:
Nephrology consulted appreciated
Plan for HD per nephrology--> plan to dialyze on Wednesday
Hypertension:
Continue hydralazine p.o. 3 times daily
Continue nifedipine XL 90 mg p.o. twice a day
Monitor blood pressure and adjust medications accordingly
Diabetes mellitus type 2:
Start insulin sliding scale
Resume Lantus over the next 24 hours
Monitor blood sugars and adjust medications according
Dementia:
Monitor behavior and mental status
DVT prophylaxis:
SCDs
CODE STATUS:
Full code
Anticipated Discharge: 24 - 48 hours
Subjective/Interval History
-
Date of Service: May 21, 2024
No abdominal pain nausea or vomiting.
Objective Data
-
Labs:
Laboratory Results
05/21/24
05:40
WBC 5.0
Hgb 9.7 L
Hct 28.6 L
Plt Count 239
Sodium 137
Potassium 4.4
Chloride 96 L
Carbon Dioxide 27
BUN 18
Creatinine 7.4 H*
Glucose 113 H
Calcium 9.1
Vital Signs:
Vital Signs
Temp Pulse Resp BP Pulse Ox
98.3 F 62 20 118/44 99
05/21/24 08:36 05/21/24 08:36 05/21/24 08:36 05/21/24 08:36 05/21/24 08:36
I&O
05/20/24 05/21/24 05/22/24
06:59 06:59 06:59
Intake Total 530 / 530 1010 / 1010
Balance 530 / 530 1010 / 1010
[2024-05-21] MEDS: PROCARDIA XL (EXTENDED RELEASE) 90 MG PO ×2 (09:33→20:51)
[2024-05-21] MEDS: RENVELA 800 MG PO ×3 (09:34→17:00)
[2024-05-21] MEDS: COLACE 200 MG PO ×2 (09:35→20:51)
[2024-05-21] MEDS: APRESOLINE 50 MG PO ×3 (09:35→22:26)
[2024-05-21] MEDS: PROZAC 10 MG PO (09:35)
[2024-05-21] MEDS: PROTONIX 40 MG PO (09:35)
[2024-05-21] MEDS: NOVOLOG FLEXPEN-LOW RESISTANCE SC ×2 (09:36→17:00)
[2024-05-21 10:40] VITALS: BP 111/70; PULSE 63
[2024-05-21 11:13] VITALS: BP 111/70; PULSE 63
--- NOTE | 2024-05-21 11:45 | W.PN.NEPH.PH ---
Today's Communication / Plan
-
HD tomorrow
Assessment/Plan
-
Impression:
ESRD
s/p Ileocecectomy for cecal volvulus
Hypertension
Diabetes mellitus type 2
Plan
Hd will be planned for Wednesday
Fluid restriction of 48 ounces a day on FLD
RYAN on dialysis re: anemia
on iv zosyn
BP stable on meds
-
-
Date of Service: May 21, 2024
CC / HPI / ROS
-
Chief Complaint:
ESRD
History of Present Illness:
tolerated HD yesterday
BP stable
tolerating liquids
hb 9.7 stable
Review of Systems:
no fever
no cp or sob
Labs
-
Labs:
WBC 5.0 10^3/uL (4.8-10.8) 05/21/24 05:40
RBC 3.30 10^6/uL (4.70-6.10) L 05/21/24 05:40
Hgb 9.7 g/dL (13.0-18.0) L 05/21/24 05:40
Hct 28.6 % (39.0-52.0) L 05/21/24 05:40
Plt Count 239 10^3/uL (130-400) 05/21/24 05:40
Sodium 137 mmol/L (135-145) 05/21/24 05:40
Potassium 4.4 mmol/L (3.5-5.1) 05/21/24 05:40
Chloride 96 mmol/L (98-107) L 05/21/24 05:40
Carbon Dioxide 27 mmol/L (22-30) 05/21/24 05:40
BUN 18 mg/dl (9-20) 05/21/24 05:40
Creatinine 7.4 mg/dL (0.7-1.3) H* 05/21/24 05:40
eGFR 7.42 05/21/24 05:40
Glucose 113 mg/dl (70-99) H 05/21/24 05:40
Calcium 9.1 mg/dl (8.4-10.2) 05/21/24 05:40
Albumin 3.9 g/dl (3.5-5.0) 05/19/24 08:56
Physical Exam
-
Vital Signs:
Vital Signs
Temp Pulse Resp BP Pulse Ox
98.3 F 62 20 118/44 99
05/21/24 08:36 05/21/24 09:35 05/21/24 08:36 05/21/24 09:35 05/21/24 08:36
Cardiovascular:: Regular rate and rhythm
Respiratory:: Bilateral: CTA (anteriorly)
Lung Excursion:: Normal
Abdomen:: Nontender and Soft
Extremity Edema:: None: Bilateral:
Robles Catheter: No
--- NOTE | 2024-05-21 12:06 | W.PN.GS2 ---
Today's Communication / Plan
-
low residue diet
Assessment / Plan
-
68 yo M s/p exploratory laparotomy and ileocecectomy with necrotic cecum on 05/07. He returns through the ED with reported vomiting after HD and new RLQ tenderness with distention with small amount of fluid and air near new anastomosis
AFVSS
No leukocytosis
Tenderness now resolved
Passing flatus/stools with bowel regimen
--Advance to low residue diet
--Continue IV Zosyn and follow exams
--Continue bowel regimen
--Trend labs
--Medical care as per primary team
Subjective Data
-
Date of Service: May 21, 2024
Patient states he feels okay. He is hungry. He is having bowel movements. He has no pain. He denies nausea or vomiting.
Objective Data
-
Intake and Output
05/20/24 05/21/24 05/22/24
06:59 06:59 06:59
Intake Total 530 / 530 1010 / 1010
Balance 530 / 530 1010 / 1010
Intake:
Oral fluids 480 / 480 960 / 960
IV piggybacks 50 / 50 50 / 50
Other:
Number of approximated SMALL 1
amounts of urine
Number of approximated LARGE 3
amounts of urine
Vital Signs
Temp Pulse Resp BP Pulse Ox
98.3 F 62 20 118/44 99
05/21/24 08:36 05/21/24 09:35 05/21/24 08:36 05/21/24 09:35 05/21/24 08:36
Lab Results
05/21/24 05:40
05/21/24 05:40
Calcium 9.1 mg/dl (8.4-10.2) 05/21/24 05:40
Total Bilirubin 0.5 mg/dl (0.2-1.3) 05/19/24 08:56
AST 26 U/L (17-59) 05/19/24 08:56
ALT 47 U/L (0-50) 05/19/24 08:56
Alkaline Phosphatase 70 U/L (38-126) 05/19/24 08:56
Total Protein 6.8 g/dl (6.3-8.2) 05/19/24 08:56
Albumin 3.9 g/dl (3.5-5.0) 05/19/24 08:56
Physical Exam
-
NAD
ABD soft, nt, nd
[2024-05-21 13:15] LABS: Glucose - Point of Care 151 mg/dl (70-99)
[2024-05-21] MEDS: NOVOLOG FLEXPEN-LOW RESISTANCE 1 UNITS SC (13:38)
[2024-05-21 16:24] LABS: Glucose - Point of Care 130 mg/dl (70-99)
[2024-05-21 16:37] VITALS: BP 117/45
[2024-05-21 21:53] LABS: Glucose - Point of Care 144 mg/dl (70-99)
[2024-05-21] MEDS: XALATAN OPHTHALMIC SOLUTION 1 DROP BOTH EYES (22:26)
[2024-05-21 23:00] VITALS: BP 121/47
[2024-05-22] MEDS: ZOSYN 50 IV ×2 (02:37→15:23)
[2024-05-22 06:00] VITALS: BMI 17.0
[2024-05-22 06:48] LABS: % Basophils 0.7 % (0-2); % Eosinophils 2.9 % (0-6); % Immature Granulocytes 0.7 % (0-0.5); % Lymphocytes 27.7 % (20.5-51.1); % Monocytes 7.7 % (1.7-9.3); % Neutrophils 60.3 % (42.2-75.2); Absolute Eosinophils 0.2 10^3/uL (0-0.7); Absolute Lymphocytes 1.6 10^3/uL (1.2-3.4); Absolute Monocytes 0.4 10^3/uL (0.1-0.6); Absolute Neutrophils 3.4 10^3/uL (1.4-6.5); Hematocrit 32.3 % (39.0-52.0); Mean Corp Hgb Conc. 34.1 g/dL (33.0-37.0); Mean Corpuscular Hgb 29.4 pg (27.0-31.0); Mean Corpuscular Volume 86.4 fL (80.0-94.0); Mean Platelet Volume 9.6 fL (7.4-10.4); Nucleated Red Blood Cells % 0 % (-); Platelet Count 227 10^3/uL (130-400); Red Blood Cell Count 3.74 10^6/uL (4.70-6.10); Red Cell Dist. Width 14.6 % (11.5-14.5); White Blood Cell Count 5.6 10^3/uL (4.8-10.8)
[2024-05-22 07:13] LABS: Blood Urea Nitrogen 22 mg/dl (9-20); Calcium 9.8 mg/dl (8.4-10.2); Carbon Dioxide 24 mmol/L (22-30); Chloride 96 mmol/L (98-107); Estimated Creatinine Clearance 5 ml/min; Glucose 121 mg/dl (70-99); Potassium 4.7 mmol/L (3.5-5.1); Sodium 132 mmol/L (135-145); eGFR 5.37
[2024-05-22 07:15] VITALS: BP 111/55
[2024-05-22 08:01] LABS: Glucose - Point of Care 130 mg/dl (70-99)
[2024-05-22] MEDS: NOVOLOG FLEXPEN-LOW RESISTANCE SC ×3 (08:08→17:36)
--- NOTE | 2024-05-22 09:00 | PTCARENOTE ---
Pt complaining of nausea and vomited large amount of emesis. Zofran given. made aware and saw pt at bedside. awaiting orders. will continue to monitor the pt
[2024-05-22] MEDS: ZOFRAN 4 MG IV (10:16)
--- NOTE | 2024-05-22 10:18 | W.PN.GS2 ---
Today's Communication / Plan
-
Continue antibiotics.
Continue diet.
Can begin dispo planning
Assessment / Plan
-
68 yo M s/p exploratory laparotomy and ileocecectomy with necrotic cecum on 05/07. He returns through the ED with reported vomiting after HD and new RLQ tenderness with distention with small amount of fluid and air near new anastomosis but no
extravasation of oral contrast which passed through the anastomosis.
Would treat this as a microperforation, which could be due to distal obstruction due to his stool burden, versus postop abscess (no drainable collection seen on CT). Clinically well-appearing
Will plan for a 14-day course of antibiotics total
Continue low residue diet
Continue with aggressive bowel regimen, MiraLAX as well as suppositories
If patient continues to clinically improve, anticipate cleared from a surgical perspective for discharge tomorrow.
Time Spent
Total Time Spent with Patient (in minutes): 20
Subjective Data
-
Date of Service: May 22, 2024
Interval Events:
No acute events overnight. Slept well. Pain Controlled. Denies Nausea/Vomiting, +bowel function. Tolerating diet.
Objective Data
-
Intake and Output
05/21/24 05/22/24 05/23/24
06:59 06:59 06:59
Intake Total 1010 / 1010 710 / 710
Balance 1010 / 1010 710 / 710
Intake:
Oral fluids 960 / 960 660 / 660
IV piggybacks 50 / 50 50 / 50
Other:
Number of approximated LARGE 3
amounts of urine
How many times incontinent 1
MODERATE amount urine
How many times incontinent 2
SATURATED amount urine
Vital Signs
Temp Pulse Resp BP Pulse Ox
98.0 F 80 17 111/55 99
05/22/24 07:15 05/22/24 07:15 05/22/24 07:15 05/22/24 07:15 05/22/24 07:15
Lab Results
05/22/24 06:07
05/22/24 06:07
Calcium 9.8 mg/dl (8.4-10.2) 05/22/24 06:07
Total Bilirubin 0.5 mg/dl (0.2-1.3) 05/19/24 08:56
AST 26 U/L (17-59) 05/19/24 08:56
ALT 47 U/L (0-50) 05/19/24 08:56
Alkaline Phosphatase 70 U/L (38-126) 05/19/24 08:56
Total Protein 6.8 g/dl (6.3-8.2) 05/19/24 08:56
Albumin 3.9 g/dl (3.5-5.0) 05/19/24 08:56
Physical Exam
-
GENERAL/NEURO: Awake, Alert, no distress
CHEST: Unlabored breathing on RA
ABDOMEN: Soft, Non-Tender, Non-Distended, incisions clean dry and intact. The patient's bed sheets are soiled. Surgery
[2024-05-22] MEDS: PROZAC 10 MG PO (10:34)
[2024-05-22] MEDS: RENVELA 800 MG PO ×2 (10:34→17:36)
[2024-05-22] MEDS: PROTONIX 40 MG PO (10:35)
--- NOTE | 2024-05-22 10:50 | W.PN.HOSP.TC ---
Addendum entered and electronically signed by Kyra Zapien MD 05/22/24 14:33:
Abd XR unrevealing, no obstruction pattern seen
Restart clears and monitor
Original Note:
Today's Communication/Plan
-
see A/P
Assessment / Plan
Assessment / Plan
Physical exam:
General: Acutely ill
HEENT: Normocephalic, Atraumatic and Moist Mucous Membranes
Respiratory: Clear to Auscultation; Negative Wheezes, Rales or Rhonchi
Cardiac: Regular Rhythm and S1/S2
GI: Soft, non tender and Nondistended. Normal bowel sound
Musculoskeletal: No Clubbing, No Cyanosis and No Edema
Neuro: Awake, Alert and Oriented
Psych: Calm
A/P:
# Abdominal pain with N/V concerns for ?peritonitis/ Recent exp lap with ileocecectomy for cecal volvulus with necrotic cecum on 05/07:
Appreciated colorectal surgery consult
Abnormal CT scan of the abdomen but no evidence of SBO
full liquid diet was advanced to low residue by CRS
Continue broad-spectrum antibiotics IV Zosyn
Continue Zofran for nausea
check Abd XR for vomiting 05/22
For now, could keep NPO with very gentle IVF 50 cc/hr (h/o ESRD on HD) due to vomiting
# End-stage renal disease on hemodialysis:
Plan for HD per nephrology
# Hypertension:
Continue [employer]ING[employer] hydralazine p.o. 3 times daily, nifedipine XL 90 mg p.o. twice a day
Clonidine PRN
Monitor blood pressure and adjust medications accordingly
# Diabetes mellitus type 2:
Cont insulin sliding scale
Resume Lantus when able to tolerate PO diet
Monitor blood sugars and adjust medications according
# Dementia:
Monitor behavior and mental status
DVT prophylaxis: HSQ
CODE STATUS: Full code
DW RN
DW GS
total time spent 51 min
Anticipated Discharge: > 48 hours
Subjective/Interval History
-
Date of Service: May 22, 2024
Objective Data
-
Labs:
Laboratory Results
05/22/24
06:07
WBC 5.6
Hgb 11.0 L
Hct 32.3 L
Plt Count 227
Sodium 132 L
Potassium 4.7
Chloride 96 L
Carbon Dioxide 24
BUN 22 H
Creatinine 9.7 H*
Glucose 121 H
Calcium 9.8
Vital Signs:
Vital Signs
Temp Pulse Resp BP Pulse Ox
36.7 C 80 17 111/55 99
05/22/24 07:15 05/22/24 07:15 05/22/24 07:15 05/22/24 07:15 05/22/24 07:15
I&O
05/21/24 05/22/24 05/23/24
06:59 06:59 06:59
Intake Total 1010 / 1010 710 / 710
Balance 1010 / 1010 710 / 710
Review of Systems
-
Abdomen/GI: Reports Nausea and Vomiting
Data Reviewed
-
CT Scan: Report Reviewed by me
Labs: Labs Reviewed by me
--- NOTE | 2024-05-22 11:43 | CM ---
CM spoke with nursing staff at [facility]
Pt is a LTC resident on a OR bed hold
Pt has dementia and alert to self and place, no behaviors typically
Pt is WC bound- able to transfer indep from bed to chair, able to self propel WC
Pt requires 1 person assist with all personal care tasks
Received HD at [facility]
PCP- Taiwo Madrid
Rx- [facility]
Call with admissions/[facility]
Noted if skillable need on dc, auth would be appreciated through [facility]
Per admissions, pt has Medicare Part B only ([id number]), no Part A
PT/OT following
Discharge Disposition- return [facility] LT, auth needed if skillable need on dc
[2024-05-22 11:47] LABS: Glucose - Point of Care 128 mg/dl (70-99)
[2024-05-22] MEDS: NSS 500 IV (11:56)
[2024-05-22] MEDS: RENVELA PO (11:57)
--- NOTE | 2024-05-22 13:14 | W.PN.NEPH.HD ---
Assessment
-
Patient seen on dialysis
Systolic blood pressure at 137 and minimal UF, patient with minimal gain
HD via fistula
Progress Note - Hemodialysis
-
Date of Service: May 22, 2024
Duration: 30 minutes and 3 hours
Potassium Bath: 2
Calcium Bath: 2.5
Opti-Dialyzer: 160
Ultrafiltration: Other (.5kg)
Blood Flow: 400
Dialysate Flow: 600
Heparin: none
EPO: none
[2024-05-22] MEDS: FLEXBUMIN 25% FOR HEMODIALYSIS 12.5 GRAMS IV (14:55)
[2024-05-22] MEDS: RETACRIT 6000 UNITS IV (14:56)
[2024-05-22 15:02] VITALS: BP 130/54
[2024-05-22 17:04] LABS: Glucose - Point of Care 87 mg/dl (70-99)
[2024-05-22] MEDS: COLACE PO (17:35)
[2024-05-22] MEDS: APRESOLINE 50 MG PO ×2 (17:35→21:32)
[2024-05-22] MEDS: PROCARDIA XL (EXTENDED RELEASE) PO (17:35)
[2024-05-22] MEDS: APRESOLINE PO (17:35)
[2024-05-22] MEDS: COLACE 200 MG PO (19:59)
[2024-05-22] MEDS: HEPARIN 5000 UNITS SC (20:00)
[2024-05-22] MEDS: PROCARDIA XL (EXTENDED RELEASE) 90 MG PO (20:00)
[2024-05-22 21:29] LABS: Glucose - Point of Care 204 mg/dl (70-99)
[2024-05-22] MEDS: XALATAN OPHTHALMIC SOLUTION 1 DROP BOTH EYES (21:32)
[2024-05-22 23:16] VITALS: BP 108/43
[2024-05-23] MEDS: ZOSYN 50 IV ×2 (03:00→14:12)
[2024-05-23 06:00] VITALS: BMI 16.9
[2024-05-23 06:39] LABS: Hematocrit 31.3 % (39.0-52.0); Hemoglobin 10.4 g/dL (13.0-18.0); Mean Corp Hgb Conc. 33.2 g/dL (33.0-37.0); Mean Corpuscular Volume 87.2 fL (80.0-94.0); Mean Platelet Volume 9.4 fL (7.4-10.4); Platelet Count 203 10^3/uL (130-400); Red Blood Cell Count 3.59 10^6/uL (4.70-6.10); Red Cell Dist. Width 14.4 % (11.5-14.5); White Blood Cell Count 3.6 10^3/uL (4.8-10.8)
[2024-05-23 07:05] LABS: Blood Urea Nitrogen 8 mg/dl (9-20); Calcium 9.2 mg/dl (8.4-10.2); Carbon Dioxide 27 mmol/L (22-30); Chloride 97 mmol/L (98-107); Estimated Creatinine Clearance 8 ml/min; Glucose 98 mg/dl (70-99); Potassium 4.5 mmol/L (3.5-5.1); Sodium 136 mmol/L (135-145); eGFR 9.18
[2024-05-23 07:25] VITALS: BP 112/50
[2024-05-23 07:44] LABS: Glucose - Point of Care 95 mg/dl (70-99)
[2024-05-23] MEDS: NOVOLOG FLEXPEN-LOW RESISTANCE SC ×3 (09:18→17:31)
[2024-05-23] MEDS: PROCARDIA XL (EXTENDED RELEASE) 90 MG PO ×2 (09:18→19:55)
[2024-05-23] MEDS: PROZAC 10 MG PO (09:19)
[2024-05-23] MEDS: PROTONIX 40 MG PO (09:20)
[2024-05-23] MEDS: COLACE 200 MG PO ×2 (09:20→19:56)
[2024-05-23] MEDS: APRESOLINE 50 MG PO ×3 (09:20→19:56)
[2024-05-23] MEDS: RENVELA 800 MG PO ×3 (09:20→17:29)
[2024-05-23] MEDS: HEPARIN 5000 UNITS SC ×2 (09:21→19:56)
[2024-05-23 09:53] VITALS: BP 131/60; PULSE 58; O2SAT 100
[2024-05-23 09:55] VITALS: BP 131/60; PULSE 67
--- NOTE | 2024-05-23 11:28 | W.PN.GS2 ---
Today's Communication / Plan
-
s/o
pls call with ?s
Assessment / Plan
-
68 yo M s/p exploratory laparotomy and ileocecectomy with necrotic cecum on 05/07. He returns through the ED with reported vomiting after HD and new RLQ tenderness with distention with small amount of fluid and air near new anastomosis but no
extravasation of oral contrast which passed through the anastomosis.
Would treat this as a microperforation, which could be due to distal obstruction due to his stool burden, versus postop abscess (no drainable collection seen on CT). Clinically well-appearing
Will plan for a 14-day course of antibiotics total
Continue low residue diet
Continue with aggressive bowel regimen, MiraLAX as well as suppositories
He is cleared for DC from surgical persepctive with abx course noted above
Subjective Data
-
Date of Service: May 23, 2024
AFVSS, denies pain, no complaints, hungry
Objective Data
-
Intake and Output
05/22/24 05/23/24 05/24/24
06:59 06:59 06:59
Intake Total 710 / 710 1190 / 1190
Balance 710 / 710 1190 / 1190
Intake:
Oral fluids 660 / 660 1140 / 1140
IV piggybacks 50 / 50 50 / 50
Other:
Number of approximated MODERATE 2
amounts of urine
How many times incontinent 1 2
MODERATE amount urine
How many times incontinent 2
SATURATED amount urine
Vital Signs
Temp Pulse Resp BP Pulse Ox
98.2 F 69 14 112/50 100
05/23/24 07:25 05/23/24 09:18 05/23/24 07:25 05/23/24 09:18 05/23/24 07:25
Lab Results
05/23/24 06:12
05/23/24 06:12
Calcium 9.2 mg/dl (8.4-10.2) 05/23/24 06:12
Magnesium 2.0 mg/dl (1.6-2.3) 05/23/24 06:12
Total Bilirubin 0.5 mg/dl (0.2-1.3) 05/19/24 08:56
AST 26 U/L (17-59) 05/19/24 08:56
ALT 47 U/L (0-50) 05/19/24 08:56
Alkaline Phosphatase 70 U/L (38-126) 05/19/24 08:56
Total Protein 6.8 g/dl (6.3-8.2) 05/19/24 08:56
Albumin 3.9 g/dl (3.5-5.0) 05/19/24 08:56
Physical Exam
-
Gen: NAD
Abd: soft, nt, nd
--- NOTE | 2024-05-23 11:29 | W.PN.HOSP.TC ---
Today's Communication/Plan
-
see A/P
Assessment / Plan
Assessment / Plan
A/P:
# Abdominal pain with N/V concerns for ?peritonitis
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
Appreciated colorectal surgery consult
Abnormal CT scan of the abdomen but no evidence of SBO
Continue broad-spectrum antibiotics IV Zosyn
Continue Zofran for nausea
Abd XR 05/22 was unrevealing
Diet advanced to low residue again, assess for tolerance
# End-stage renal disease on hemodialysis:
HD per nephrology
# Hypertension:
Continue [employer] hydralazine p.o. 3 times daily, nifedipine XL 90 mg p.o. twice a day
Clonidine PRN
Monitor blood pressure and adjust medications accordingly
# Diabetes mellitus type 2:
Cont insulin sliding scale
Resume Lantus when able to tolerate PO diet
Monitor blood sugars and adjust medications according
# Dementia:
Monitor behavior and mental status
DVT prophylaxis: HSQ
CODE STATUS: Full code
Dispo: return to LTC
Anticipated Discharge: Within 24 hours
Subjective/Interval History
-
Date of Service: May 23, 2024
Objective Data
-
Labs:
Laboratory Results
05/23/24
06:12
WBC 3.6 L
Hgb 10.4 L
Hct 31.3 L
Plt Count 203
Sodium 136
Potassium 4.5
Chloride 97 L
Carbon Dioxide 27
BUN 8 L
Creatinine 6.2 H*
Glucose 98
Calcium 9.2
Vital Signs:
Vital Signs
Temp Pulse Resp BP Pulse Ox
36.8 C 69 14 112/50 100
05/23/24 07:25 05/23/24 09:18 05/23/24 07:25 05/23/24 09:18 05/23/24 07:25
I&O
05/22/24 05/23/24 05/24/24
06:59 06:59 06:59
Intake Total 710 / 710 1190 / 1190
Balance 710 / 710 1190 / 1190
Review of Systems
-
All other systems: Reviewed and negative
Physical Exam
-
General: Well Developed, No Apparent Distress, Comfortable and Appears Chronically Ill
Cardiac: Regular Rhythm and S1/S2
GI: Soft, Nontender and Nondistended
Musculoskeletal: No Edema
Neuro: Awake and Alert
Psych: Calm
Data Reviewed
-
CT Scan: Report Reviewed by me
Labs: Labs Reviewed by me
[2024-05-23 12:40] LABS: Glucose - Point of Care 125 mg/dl (70-99)
--- NOTE | 2024-05-23 13:46 | PN.CDI ---
CDI
- -
CDI:
Physician Documentation Request
Admit Date: 05/20/24 13:58
Dear Doctor Rupali,
05/20 and 05/23 RD assessment/notes states 'chart reviewed due to pat with BMI < 19'
BMI 05/23 16.9 (RD note states underweight)
Per documented vital signs. Patient's BMI has ranged from 13.4-17.0 during this hospitalization.
If possible, please provide an associated diagnosis related to the abnormal BMI, such as:
BMI < or = to 19
Underweight
Weight Loss
Cachectic
Anorexia
- BMI is not significant
- Other
Use of terms such as suspected, likely, concern for, or probable (associated with a specific diagnosis that is being evaluated, monitored, or treated as if it exists) are acceptable and can be coded in the inpatient setting, when documented at the
time of discharge.
Thank you,
Rosario Mcnulty RN, BSN
CDI Specialist
tiger text
Please use your independent medical judgment in providing your response.
--- NOTE | 2024-05-23 15:23 | W.PN.NEPH.PH ---
Today's Communication / Plan
-
Dialysis tomorrow
Assessment/Plan
-
Impression:
ESRD
s/p Ileocecectomy for cecal volvulus
Hypertension
Diabetes mellitus type 2
Plan
Hd will be planned for tomorrow
Fluid restriction of 48 ounces a day on FLD
RYAN on dialysis re: anemia
on iv zosyn
BP stable on meds
No current acute GI issues
-
-
Date of Service: May 23, 2024
CC / HPI / ROS
-
Chief Complaint:
ESRD
History of Present Illness:
ESRD on Wednesday schedule
BP stable
tolerating liquids
hb 10.4 stable
Review of Systems:
no fever
no cp or sob
Labs
-
Labs:
WBC 3.6 10^3/uL (4.8-10.8) L 05/23/24 06:12
RBC 3.59 10^6/uL (4.70-6.10) L 05/23/24 06:12
Hgb 10.4 g/dL (13.0-18.0) L 05/23/24 06:12
Hct 31.3 % (39.0-52.0) L 05/23/24 06:12
Plt Count 203 10^3/uL (130-400) 05/23/24 06:12
Sodium 136 mmol/L (135-145) 05/23/24 06:12
Potassium 4.5 mmol/L (3.5-5.1) 05/23/24 06:12
Chloride 97 mmol/L (98-107) L 05/23/24 06:12
Carbon Dioxide 27 mmol/L (22-30) 05/23/24 06:12
BUN 8 mg/dl (9-20) L 05/23/24 06:12
Creatinine 6.2 mg/dL (0.7-1.3) H* 05/23/24 06:12
eGFR 9.18 05/23/24 06:12
Glucose 98 mg/dl (70-99) 05/23/24 06:12
Calcium 9.2 mg/dl (8.4-10.2) 05/23/24 06:12
Albumin 3.9 g/dl (3.5-5.0) 05/19/24 08:56
Physical Exam
-
Vital Signs:
Vital Signs
Temp Pulse Resp BP Pulse Ox
98.2 F 69 14 112/50 100
05/23/24 07:25 05/23/24 09:18 05/23/24 07:25 05/23/24 09:18 05/23/24 07:25
Cardiovascular:: Regular rate and rhythm
Respiratory:: Bilateral: CTA (anteriorly)
Lung Excursion:: Normal
Abdomen:: Nontender and Soft
Extremity Edema:: None: Bilateral:
Robles Catheter: No
[2024-05-23 15:45] VITALS: BP 131/54
[2024-05-23 17:29] LABS: Glucose - Point of Care 129 mg/dl (70-99)
[2024-05-23] MEDS: XALATAN OPHTHALMIC SOLUTION 1 DROP BOTH EYES (19:57)
[2024-05-23 21:42] LABS: Glucose - Point of Care 131 mg/dl (70-99)
[2024-05-23 23:59] VITALS: BP 151/63
[2024-05-24] MEDS: ZOSYN 50 IV ×2 (00:59→14:49)
--- NOTE | 2024-05-24 04:12 | DOWNTIME ---
There was a UpDown Client Drag Out Man Downtime on 05/24/2024 from 0100 to 05/24/2024 at 0350. Downtime documentation of patient's care, including medication administrations, has been reconciled in the electronic record per guidelines. Refer to the
patient's paper chart under the miscellaneous tab to see printed paper medication records and downtime forms.
[2024-05-24 05:41] VITALS: BMI 17.3
[2024-05-24 06:35] LABS: Hematocrit 28.3 % (39.0-52.0); Hemoglobin 9.7 g/dL (13.0-18.0); Mean Corp Hgb Conc. 34.3 g/dL (33.0-37.0); Mean Corpuscular Hgb 29.1 pg (27.0-31.0); Mean Platelet Volume 9.7 fL (7.4-10.4); Platelet Count 173 10^3/uL (130-400); Red Blood Cell Count 3.33 10^6/uL (4.70-6.10); Red Cell Dist. Width 14.3 % (11.5-14.5); White Blood Cell Count 3.7 10^3/uL (4.8-10.8)
[2024-05-24 07:00] VITALS: BP 111/45
[2024-05-24 07:11] LABS: Blood Urea Nitrogen 14 mg/dl (9-20); Calcium 9.1 mg/dl (8.4-10.2); Carbon Dioxide 27 mmol/L (22-30); Chloride 98 mmol/L (98-107); Estimated Creatinine Clearance 6 ml/min; Glucose 137 mg/dl (70-99); Magnesium 2.1 mg/dl (1.6-2.3); Potassium 4.6 mmol/L (3.5-5.1); Sodium 136 mmol/L (135-145); eGFR 6.11
[2024-05-24 07:55] LABS: Glucose - Point of Care 119 mg/dl (70-99)
--- NOTE | 2024-05-24 08:20 | PN.CDI ---
CDI
- -
CDI:
Physician Documentation Request
Admit Date: 05/20/24 13:58
Dear Doctor Rupali,
Patient presented POD # 11 (cecal volvulus). It was reported he had ' intense pain and guarding while at dialysis today' as weell and nausea and vomiting.
Hospitalist progress note state ? peritonitis.
General surgery notes indicate 'Would treat this as a microperforation, which could be due to distal obstruction due to his stool burden, versus postop abscess (no drainable collection seen on CT)'
05/19 CT abdomen/pelvis impression 'There is a small amount of fluid in the right upper quadrant adjacent the liver, and this appears slightly increased from previous examination....Small foci of extraluminal air inferior to the ileocolonic
anastomosis, also present on previous examination. No evidence for abscess.'
Please clarify the following:
____ - peritonitis is a diagnosis for this patient
____ - peritonitis was ruled out
____ - peritonitis is still a likely, suspected, probable diagnosis
____ - Other
Use of terms such as suspected, likely, concern for, or probable (associated with a specific diagnosis that is being evaluated, monitored, or treated as if it exists) are acceptable and can be coded in the inpatient setting, when documented at the
time of discharge.
Thank you,
Rosario Mcnulty RN, BSN
CDI Specialist
tiger text
Please use your independent medical judgment in providing your response.
[2024-05-24] MEDS: NOVOLOG FLEXPEN-LOW RESISTANCE SC ×2 (08:33→12:51)
[2024-05-24] MEDS: PROCARDIA XL (EXTENDED RELEASE) 90 MG PO (09:30)
[2024-05-24] MEDS: RENVELA 800 MG PO ×3 (09:31→17:27)
[2024-05-24] MEDS: HEPARIN 5000 UNITS SC (09:32)
[2024-05-24] MEDS: COLACE 200 MG PO (09:32)
[2024-05-24] MEDS: PROTONIX 40 MG PO (09:32)
[2024-05-24] MEDS: PROZAC 10 MG PO (09:32)
[2024-05-24] MEDS: APRESOLINE 50 MG PO ×2 (09:32→17:28)
--- NOTE | 2024-05-24 11:08 | W.PN.HOSP.TC ---
Addendum entered and electronically signed by Kyra Zapien MD 05/24/24 13:43:
total DC time 36 min
Addendum entered and electronically signed by Kyra Zapien MD 05/24/24 13:05:
# peritonitis was ruled out
Addendum entered and electronically signed by Kyra Zapien MD 05/24/24 12:59:
# Underweight
Original Note:
Today's Communication/Plan
-
see A/P
DC after HD today
Assessment / Plan
Assessment / Plan
A/P:
# Abdominal pain with N/V concerns for ?peritonitis
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
Appreciated colorectal surgery consult
Abnormal CT scan of the abdomen but no evidence of SBO
Pt has received broad-spectrum antibiotic IV Zosyn x 5 days, no need for further Abx following discharge
Zofran PRN for nausea
Abd XR 05/22 was unrevealing
Diet advanced to low residue again which pt tolerated this time
# End-stage renal disease on hemodialysis:
HD per nephrology
# Hypertension:
Continue [employer] hydralazine p.o. 3 times daily, nifedipine XL 90 mg p.o. twice a day
Clonidine PRN
Monitor blood pressure and adjust medications accordingly
# Diabetes mellitus type 2:
Cont insulin sliding scale
Resume Lantus when able to tolerate PO diet
Monitor blood sugars and adjust medications according
# Dementia:
Monitor behavior and mental status
DVT prophylaxis: HSQ
CODE STATUS: Full code
Dispo: return to LTC
DW RN
called brother to update, call not answered
Anticipated Discharge: Today
Subjective/Interval History
-
Date of Service: May 24, 2024
Objective Data
-
Labs:
Laboratory Results
05/24/24 05/24/24
06:05 06:06
WBC 3.7 L
Hgb 9.7 L
Hct 28.3 L
Plt Count 173
Sodium 136
Potassium 4.6
Chloride 98
Carbon Dioxide 27
BUN 14
Creatinine 8.7 H*
Glucose 137 H
Calcium 9.1
Vital Signs:
Vital Signs
Temp Pulse Resp BP Pulse Ox
36.6 C 72 16 111/45 96
05/24/24 07:00 05/24/24 09:32 05/24/24 07:00 05/24/24 09:32 05/24/24 07:00
I&O
05/23/24 05/24/24 05/25/24
06:59 06:59 06:59
Intake Total 1190 / 1190 720 / 720
Balance 1190 / 1190 720 / 720
Review of Systems
-
All other systems: Reviewed and negative
Physical Exam
-
General: Well Developed, No Apparent Distress, Comfortable and Appears Chronically Ill
Cardiac: Regular Rhythm and S1/S2
GI: Soft, Nontender and Nondistended
Musculoskeletal: No Edema
Neuro: Awake and Alert
Psych: Calm
Data Reviewed
-
CT Scan: Report Reviewed by me
Labs: Labs Reviewed by me
[2024-05-24 12:09] LABS: Glucose - Point of Care 125 mg/dl (70-99)
--- NOTE | 2024-05-24 12:17 | CM ---
Addendum entered by Natalie Esteban 05/24/24 12:29:
1730 transport
Original Note:
CM reviewed pt with Dr Zapien- onofre osei today after HD today
Update provided to admissions/[facility]
Transportation forms completed and chart
Update provided to pt by nursing
VM left for brother
Discharge Disposition- return [facility] via BLS
Phone- [phone] Fax- [phone]
--- NOTE | 2024-05-24 13:27 | W.DCSUMMARY ---
Discharge Summary
Discharge Data
Date of Admission: 05/20/24
Date of Discharge: 05/24/24
-
Pending Results: No
Hospital Course
Principal Diagnosis:
Abdominal pain with nausea and vomiting, unclear etiology, was concern for peritonitis on admission
Chronic Diagnoses:�
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
End-stage renal disease on hemodialysis
Hypertension
Diabetes mellitus type 2
Dementia
Consultations:�
General Surgery
Nephrology
Procedures:�
None
Clinical course:�
This is a 68-year-old male, with past medical history as stated above, who presented with abnormal pain, nausea and vomiting.
This is in setting of recent ex lap with ileocecectomy for cecal volvulus with necrotic cecum on 05/07/24
Problem 1:
Abdominal pain with nausea and vomiting, unclear etiology, was concern for peritonitis on admission.
His CT abdomen pelvis was negative for bowel obstruction, noted free air which has decreased in follow-up imaging.
He was initially made n.p.o., but diet was slowly added back, and he was able to tolerate low residue diet prior to discharge, which he can continue going forward for 1 to 2 weeks.
As for the rest of his medical problems, they were stable during his hospital stay.
Discharge Plan
-
Patient Disposition: Custodial/SNF
Discharge Diagnosis/Procedures: Abdominal pain with nausea/vomiting (resolved);
End-stage renal disease on hemodialysis
Condition: Fair
Diet: Other diet
Additional Diets: low residue for 1-2 weeks
Driving Restrictions: No driving
Referrals:
Taiwo Madrid, DO [Family Provider] - in less than 1 week
Prescriptions:
Continued
acetaminophen 325 mg Tablet
650 mg PO Q6HPRN PRN (Reason: MILD PAIN)
Rx Instructions:
DO NOT EXCEED 3G/24HR
donepezil [Aricept] 10 mg Tablet
10 mg PO HS
famotidine [Pepcid] 20 mg Tablet
20 mg PO BID
bisacodyl 10 mg Suppository
10 mg ND DAILYPRN PRN (Reason: if MOM is ineffective )
fluoxetine [Prozac] 10 mg Capsule
10 mg PO DAILY
hydralazine 50 mg Tablet
50 mg PO TID
Rx Instructions:
HOLD SBP <100
sorbitol 70 % Solution
30 ml PO DAILYPRN PRN (Reason: constipation )
calcium carbonate-vitamin D3 500 mg-5 mcg (200 unit) Tablet
1 tab PO DAILY
Zenpep 5,000-17,000- 24,000 unit Capsule,Delayed Release(Dr/Ec)
1 cap PO AC
clonidine HCl 0.1 mg Tablet
0.1 mg PO BIDPRN PRN (Reason: SBP>170)
latanoprost 0.005 % drops
1 drp BOTH EYES HS
nystatin 100,000 unit/mL Suspension
0 ml mucous membrane BID
sodium polystyrene sulfonate 15 gram/60 mL Suspension
15 g PO DAILYPRN PRN (Reason: missed dialysis day)
insulin lispro [Humalog KwikPen Insulin] 100 unit/mL insulin pen
2 unit SC AC
Rx Instructions:
201-250=2UNITS, 251-300=4UNITS
cholecalciferol (vitamin D3) 25 mcg (1,000 unit) Tablet
50 mcg PO HS
sevelamer carbonate [Renvela] 800 mg Tablet
800 mg PO MEALS
B-complex with vitamin C Tablet
1 tab PO DAILY
nifedipine [Procardia XL] 90 mg Tablet Extended Release 24hr
90 mg PO BID
Rx Instructions:
EVERY Wednesday
B-complex with vitamin C Tablet
1 tab PO DAILY
pantoprazole [Protonix] [address] for susp in packet
40 mg PO DAILY
ondansetron HCl 4 mg Tablet
4 mg PO Q8HPRN PRN (Reason: nausea) Qty: 0 0RF
Changed
insulin glargine 100 unit/mL (3 mL) insulin pen
3 unit SC HS Qty: 0 0RF
Discharge Orders:
Discharge Patient (As Directed); Ordered 05/24/24
Ordered By: Kyra Zapien
Discharge Date and Time
Print Language: SPANISH
[2024-05-24 15:00] VITALS: BP 130/46
[2024-05-24] MEDS: RETACRIT 2000 UNITS IV (15:00)
--- NOTE | 2024-05-24 16:15 | W.PN.NEPH.HD ---
Assessment
-
pt seen during HD
vitals stable
AVF functions well
fo rd/c after HD
Progress Note - Hemodialysis
-
Date of Service: May 24, 2024
Duration: 30 minutes and 3 hours
Potassium Bath: 2
Calcium Bath: 2.5
Opti-Dialyzer: 160
Ultrafiltration: Other (1kg)
Blood Flow: 400
Dialysate Flow: 600
Heparin: no
EPO: 2000
[2024-05-24 17:00] LABS: Glucose - Point of Care 270 mg/dl (70-99)
[2024-05-24] MEDS: NOVOLOG FLEXPEN-LOW RESISTANCE 3 UNITS SC (17:27)
== END 2024-05-24 18:24 | DRG 393 ==
LOC: 3 WEST ACU 13:58
PROVIDERS: Hospitalist; ADMITTING PHYSICIAN Internal Medicine; ATTENDING PHYSICIAN Internal Medicine; CONSULT PHYSICIAN Specialist; CONSULT PHYSICIAN Surgery; EMERGENCY PHYSICIAN Emergency Medicine; FAMILY PHYSICIAN Internal Medicine
DX: K91.89 Other postprocedural complications and disorders of digestive system (principal); K56.2 Volvulus; N18.6 End stage renal disease; F03.94 Unspecified dementia, unspecified severity, with anxiety; F03.93 Unspecified dementia, unspecified severity, with mood disturbance; Z68.1 Body mass index [BMI] 19.9 or less, adult; F17.200 Nicotine dependence, unspecified, uncomplicated; Z99.2 Dependence on renal dialysis; E11.22 Type 2 diabetes mellitus with diabetic chronic kidney disease; R63.6 Underweight
CPT/HCPCS: 74018; 74176; 80048; 80053; 82962; 83690; 83735; 85025; 85027; 85610; 87070; 96365; 97162; 97166; 97530; 99285; 99406; G0257; P9047; Q5106

== ENCOUNTER 2024-07-06 12:57 | Emergency (ER) | payer MEDICARE, OTHER, SELFPAY ==
[2024-07-06 13:28] VITALS: BP 193/45
[2024-07-06 15:36] VITALS: BP 163/58
[2024-07-06 16:24] VITALS: BMI 19.8
--- NOTE | 2024-07-06 17:27 | ED.GENMED ---
History of Present Illness
General
Chief Complaint: Abdominal Symptoms
Source: patient, ambulance crew and detention
Exam Limitations: dementia
Time Seen by Provider: 07/06/24 16:16
Nursing documentation reviewed up to this point in time: agreed with
History of Present Illness
History of Present Illness:
60-year-old male past medical history of cirrhosis, hypertension, end-stage renal disease presenting to the emergency department today after he vomited 1 time at [facility]. Denies any specific symptoms at this time does have a history of bowel
obstructions.
Past History
Past History
ED Past Medical History: HTN, IDDM, Renal failure (Dialysis M-W-, ), Psychiatric (Depression) and Other (Slight Dementia but able to answer questions, Cirrhosis of the liver, Colitis, Hep A, Anemia, Right arm Fistula)
ED Past Surgical History: None
Social History
Tobacco: Smoker
Alcohol: None
Personal: Single
Living: detention
Review of Systems
Review of Systems
Allergies reviewed?: Yes
All Other Systems: ROS reviewed and negative except as documented in HPI and ROS
Phy Exam
Physical Exam
Physical Exam:
GENERAL: Alert , in no apparent distress
EYE: pupils equal and reactive
NECK: Supple, no significant adenopathy.
ENT: o/p clr, mmm.
CARDIAC: Regular rate and rhythm .
LUNGS: Clear breath sounds bilaterally, no acute respiratory distress, no wheezes/rales/rhonchi
ABDOMEN: Soft, without focal tenderness, no r/g, no cvat
NEUROLOGICAL: Alert and oriented, no focal neuro deficits
SKIN: Warm and dry, skin intact.
MUSCULOSKELETAL: No edema, well perfused.
PSYCH: Normal and appropriate interaction.
Course
Orders/Labs/Results
Orders:
Orders
07/06/24 13:30
CMP [Comprehensive Metabolic Panel] Urgent
Complete Blood Count/With Diff Urgent
07/06/24 16:21
EKG [Electrocardiogram (*1)] Urgent
Reason for Study: Fatigue / Weakness
EKG- Treatment ONCE
Urinalysis Reflex To Culture Urgent
Date Specimen was Collected: 07/06/24
Time Specimen was Collected: 16:23
Vital Signs
Initial and Last Documented VS:
Initial Vital Signs
Temp Pulse Resp BP Pulse Ox
98.5 F 61 16 193/45 100
07/06/24 13:28 07/06/24 13:28 07/06/24 13:28 07/06/24 13:28 07/06/24 13:28
Last Documented Vital Signs
Temp Pulse Resp BP Pulse Ox
97.3 F 68 18 163/58 99
07/06/24 15:36 07/06/24 15:36 07/06/24 15:36 07/06/24 15:36 07/06/24 15:36
MDM/Problems Addressed
MDM/Problems Addressed:
68-year-old male presenting to the emergency department after 1 episode of vomiting at [facility]. Denies any symptoms at this time. Patient ate an entire meal here with no symptoms. Obstruction very unlikely at this point stable for discharge
*Critical Care Note
Total Time (30-74mins, 75-104mins- exclusive of procedures): Not Applicable
ED Attending Note
-
Portions of this chart may have been created with voice recognition software.� Occasional wrong word or��sound alike� substitutions may have occurred due to the inherent limitations of voice recognition software.
Discharge Plan
Departure
Patient Disposition: Home (Routine Discharge)
Date of Disposition: 07/06/24
Time of Disposition: 17:28
Patient with high blood pressure during this ER visit?: Yes
Condition: Good
Covid-19: Not Applicable
Discharge Problem:
Vomiting
Instructions: BLOOD PRESSURE
Prescriptions:
No Action
acetaminophen 325 mg Tablet
650 mg PO Q6HPRN PRN (Reason: MILD PAIN)
Rx Instructions:
DO NOT EXCEED 3G/24HR
donepezil [Aricept] 10 mg Tablet
10 mg PO HS
famotidine [Pepcid] 20 mg Tablet
20 mg PO BID
bisacodyl 10 mg Suppository
10 mg [place] DAILYPRN PRN (Reason: if MOM is ineffective )
fluoxetine [Prozac] 10 mg Capsule
10 mg PO DAILY
hydralazine 50 mg Tablet
50 mg PO TID
Rx Instructions:
HOLD SBP <100
sorbitol 70 % Solution
30 ml PO DAILYPRN PRN (Reason: constipation )
calcium carbonate-vitamin D3 500 mg-5 mcg (200 unit) Tablet
1 tab PO DAILY
Zenpep 5,000-17,000- 24,000 unit Capsule,Delayed Release(Dr/Ec)
1 cap PO AC
clonidine HCl 0.1 mg Tablet
0.1 mg PO BIDPRN PRN (Reason: SBP>170)
latanoprost 0.005 % drops
1 drp BOTH EYES HS
nystatin 100,000 unit/mL Suspension
0 ml mucous membrane BID
sodium polystyrene sulfonate 15 gram/60 mL Suspension
15 g PO DAILYPRN PRN (Reason: missed dialysis day)
insulin lispro [Humalog KwikPen Insulin] 100 unit/mL insulin pen
2 unit SC AC
Rx Instructions:
201-250=2UNITS, 251-300=4UNITS
cholecalciferol (vitamin D3) 25 mcg (1,000 unit) Tablet
50 mcg PO HS
sevelamer carbonate [Renvela] 800 mg Tablet
800 mg PO MEALS
B-complex with vitamin C Tablet
1 tab PO DAILY
nifedipine [Procardia XL] 90 mg Tablet Extended Release 24hr
90 mg PO BID
Rx Instructions:
EVERY Wednesday
B-complex with vitamin C Tablet
1 tab PO DAILY
pantoprazole [Protonix] [address] for susp in packet
40 mg PO DAILY
ondansetron HCl 4 mg Tablet
4 mg PO Q8HPRN PRN (Reason: nausea) Qty: 0 0RF
insulin glargine 100 unit/mL (3 mL) insulin pen
3 unit SC HS Qty: 0 0RF
Referrals:
Taiwo Madrid, [Family Provider] -
Activity Restrictions/Additional Instructions:
Jules came here with concerns of an episode of vomiting. Here he was a able to eat a meal and was in no distress and had no complaints. Please continue to the monitor. Please have him return for any worsening, new or concerning symptoms.
Interventions
Interventions:
*Risk Screen - Suicide Last Done: 07/06/24 13:28
*General Assessment Last Done: 07/06/24 13:28
*Neglect/Abuse Screening Last Done: 07/06/24 13:28
ED- Fall Risk Assessment Last Done: 07/06/24 16:37
*ED COVID-19 Vaccine History Last Done: 07/06/24 16:24
MA-Tugfcp-Pxwbkamewh Assessment Last Done: 07/06/24 16:24
Discharge Date and Time
Print Language: SOMALI
== END 2024-07-06 21:02 ==
LOC: EMR 12:57
PROVIDERS: EMERGENCY PHYSICIAN Emergency Medicine; FAMILY PHYSICIAN Internal Medicine
DX: R11.10 Vomiting, unspecified (principal); E11.22 Type 2 diabetes mellitus with diabetic chronic kidney disease; I12.0 Hypertensive chronic kidney disease with stage 5 chronic kidney disease or end stage renal disease; N18.6 End stage renal disease; Z99.2 Dependence on renal dialysis; F03.90 Unspecified dementia, unspecified severity, without behavioral disturbance, psychotic disturbance, mood disturbance, and anxiety; K74.60 Unspecified cirrhosis of liver; F17.200 Nicotine dependence, unspecified, uncomplicated; Z79.4 Long term (current) use of insulin
CPT/HCPCS: 99283

== ENCOUNTER 2024-09-16 17:38 | Emergency (ER) | payer MEDICARE, OTHER, SELFPAY ==
[2024-09-16] VITALS (7 sets, daily range): BP systolic 165–188; BP diastolic 55–84
[2024-09-16 18:20] LABS: % Basophils 0.6 % (0-2); % Eosinophils 0.3 % (0-6); % Immature Granulocytes 0.4 % (0-0.5); % Lymphocytes 17.3 % (20.5-51.1); % Monocytes 6.4 % (1.7-9.3); Absolute Lymphocytes 1.2 10^3/uL (1.2-3.4); Absolute Monocytes 0.4 10^3/uL (0.1-0.6); Absolute Neutrophils 5.1 10^3/uL (1.4-6.5); Hematocrit 33.8 % (39.0-52.0); Hemoglobin 11.6 g/dL (13.0-18.0); Mean Corp Hgb Conc. 34.3 g/dL (33.0-37.0); Mean Corpuscular Hgb 28.9 pg (27.0-31.0); Mean Corpuscular Volume 84.1 fL (80.0-94.0); Mean Platelet Volume 9.1 fL (7.4-10.4); Nucleated Red Blood Cells % 0 % (-); Platelet Count 200 10^3/uL (130-400); Red Blood Cell Count 4.02 10^6/uL (4.70-6.10); Red Cell Dist. Width 18.6 % (11.5-14.5); White Blood Cell Count 6.9 10^3/uL (4.8-10.8)
[2024-09-16 18:36] LABS: ALT (SGPT) 19 U/L (0-50); AST (SGOT) 21 U/L (17-59); Albumin 4.6 g/dl (3.5-5.0); Alkaline Phosphatase 109 U/L (38-126); Blood Urea Nitrogen 40 mg/dl (9-20); Calcium 11.2 mg/dl (8.4-10.2); Carbon Dioxide 21 mmol/L (22-30); Chloride 97 mmol/L (98-107); Estimated Creatinine Clearance 8 ml/min; Glucose 187 mg/dl (70-99); Potassium 4.3 mmol/L (3.5-5.1); Sodium 136 mmol/L (135-145); Total Bilirubin 0.7 mg/dl (0.2-1.3); Total Protein 7.7 g/dl (6.3-8.2); eGFR 7.42
--- NOTE | 2024-09-16 18:41 | ED.GENMED ---
History of Present Illness
General
Chief Complaint: Abdominal Symptoms
Source: patient and records
Exam Limitations: none
Time Seen by Provider: 09/16/24 18:15
History of Present Illness
History of Present Illness:
68-year-old male complaining of recurrent vomiting. Started earlier today. States he is also had some diarrhea. No fever no chest pain no shortness of breath. He has had issues like this in the past.
Past History
Past History
ED Past Medical History: HTN, IDDM, Renal failure (Dialysis M-W-F, ), Psychiatric (Depression) and Other (Slight Dementia but able to answer questions, Cirrhosis of the liver, Colitis, Hep A, Anemia, Right arm Fistula)
ED Past Surgical History: None
Social History
Tobacco: Smoker
Alcohol: None
Personal: Single
Living: [facility]
Review of Systems
Review of Systems
All Other Systems: Not applicable
Constitutional: Denies fever or chills
Respiratory: Reports no symptoms
Cardiac: Reports no symptoms
Phy Exam
Physical Exam
Physical Exam:
GENERAL: Alert and oriented. At times dry heaving. Holding a emesis bag. However not actively vomiting. Appears chronically ill
EYE: Orbits normal.
NECK: Supple, no significant adenopathy.
ENT: Pharynx without erythema
CARDIAC: Regular rate and rhythm without any obvious murmurs.
LUNGS: Clear breath sounds,normal
ABDOMEN: Soft, no distention. Bowel sounds present. Mild epigastric tenderness. No rebound or guarding no mass or hernia. Vertical midline incision
NEUROLOGICAL: Alert and oriented , grossly non-focal
SKIN: Warm and dry, no rash or lesion, no discoloration, skin intact.
MUSCULOSKELETAL: Shunt left arm. Appears well
PSYCH: Normal and appropriate interaction.
Course
Orders/Labs/Results
Orders:
Orders
09/16/24 18:13
CBC/With Diff [Complete Blood Count/With Diff] Urgent
CMP [Comprehensive Metabolic Panel] Urgent
Lipase Urgent
Comment: ADD ON
Troponin I Urgent
Comment: ADD ON
09/16/24 18:28
Add On- LAB Urgent
Tests Added?: lipase
09/16/24 18:29
CT Abd/pel Without Iv Or Oral Urgent
Comment:
Reason For Exam: recurrent vomiting.
09/16/24 18:45
Add On- LAB Urgent
Tests Added?: troponin
09/16/24 19:19
Electrocardiogram (*1) Stat
Reason for Study: Abdominal Pain
EKG- Treatment ONCE
09/16/24 20:11
Ondansetron Injectable [Zofran] 4 mg IV NOW STA
09/16/24 21:45
Urinalysis Reflex To Culture Urgent
Date Specimen was Collected: 09/16/24
Time Specimen was Collected: 21:42
Urine Microscopic Reflex Cult Urgent
Urine Culture Urgent
ROSE Source: U
Specimen Description:
Date Specimen was Collected: 09/16/24
Time Specimen was Collected: 21:42
09/16/24 22:18
CefTRIAXone [Rocephin] 1,000 mg IV NOW STA
Abnormal Lab Results
09/16/24 09/16/24
18:13 21:45
RBC 4.02 L 10^6/uL
(4.70-6.10)
Hgb 11.6 L g/dL
(13.0-18.0)
Hct 33.8 L %
(39.0-52.0)
RDW 18.6 H %
(11.5-14.5)
Lymphocytes % 17.3 L %
(20.5-51.1)
Chloride 97 L mmol/L
(98-107)
Carbon Dioxide 21 L mmol/L
(22-30)
BUN 40 H mg/dl
(9-20)
Creatinine 7.4 H* mg/dL
(0.7-1.3)
Glucose 187 H mg/dl
(70-99)
Calcium 11.2 H mg/dl
(8.4-10.2)
Ur Occult Blood Reflex 4+ A
(Negative)
Leukocyte Esterase Rfl 3+ A
(Negative)
Urine RBC >100 A /HPF
(0-2)
Urine WBC (Reflex) 70-80 A /HPF
(0-5)
Urine Bacteria (Reflex) Many A
(Negative)
Urine Glucose 2+ A
(Negative)
Urine Albumin (Reflex) 3+ A
(Neg - Trace)
09/16/24 18:13
09/16/24 18:13
Vital Signs
Initial and Last Documented VS:
Initial Vital Signs
Temp Pulse Resp Pulse Ox
97.4 F 75 26 100
09/16/24 17:41 09/16/24 17:41 09/16/24 17:41 09/16/24 17:41
Last Documented Vital Signs
Temp Pulse Resp BP Pulse Ox
97.4 F 80 25 185/65 100
09/16/24 17:41 09/16/24 23:00 09/16/24 23:00 09/16/24 23:00 09/16/24 20:00
MDM/Problems Addressed
Differential Diagnosis Includes:
Patient with recurrent vomiting. Clinically not obstructed. Highly doubt cardiac but with patient's complicated medical history will check troponin and EKG. Labs pending. Sharon for nausea. CT scan pending
*Radiology
Radiology exam reviewed: radiology read reviewed (Possible cystitis unremarkable otherwise)
*Pulse Oximetry
Patient hypoxic: no
*EKG
Interpreted by ED Provider?: Yes
Interpretation: abnormal
Comparison EKG: changes noted
Heart Rate: 73
Rate: normal
Rhythm: sinus and PAC's
Cinebar: normal axis
Interval: normal interval
QRS Pattern: normal QRS
Ischemia: non-specific ST changes
*Critical Care Note
Total Time (30-74mins, 75-104mins- exclusive of procedures): Not Applicable
Data Reviewed
Review of Other/Old Records Reveals: Labs, Records, Radiology Studies and Testing
Update Note
Update Note:
Urine positive. Cystitis by CT. No other acute findings. Patient has been very comfortable here. No recurrent vomiting. Stable for discharge to follow-up
ED Attending Note
-
Portions of this chart may have been created with voice recognition software.� Occasional wrong word or��sound alike� substitutions may have occurred due to the inherent limitations of voice recognition software.
Discharge Plan
Departure
Patient Disposition: Home (Routine Discharge)
Date of Disposition: 09/16/24
Time of Disposition: 22:27
Patient with high blood pressure during this ER visit?: Yes
Discharge Problem:
Vomiting, UTI, History of renal failure
Instructions: Urinary tract infections in adults, Nausea and Vomiting, Adult (DC), BLOOD PRESSURE
Prescriptions:
New
cefdinir 300 mg capsule
300 mg PO DAILY 5 Days Qty: 5 0RF
Rx Instructions:
1 tablet after dialysis for 5 episodes of dialysis
No Action
acetaminophen 325 mg Tablet
650 mg PO Q6HPRN PRN (Reason: MILD PAIN)
Rx Instructions:
DO NOT EXCEED 3G/24HR
donepezil [Aricept] 10 mg Tablet
10 mg PO HS
famotidine [Pepcid] 20 mg Tablet
20 mg PO BID
bisacodyl 10 mg Suppository
10 mg GA DAILYPRN PRN (Reason: if MOM is ineffective )
fluoxetine [Prozac] 10 mg Capsule
10 mg PO DAILY
hydralazine 50 mg Tablet
50 mg PO TID
Rx Instructions:
HOLD SBP <100
sorbitol 70 % Solution
30 ml PO DAILYPRN PRN (Reason: constipation )
calcium carbonate-vitamin D3 500 mg-5 mcg (200 unit) Tablet
1 tab PO DAILY
Zenpep 5,000-17,000- 24,000 unit Capsule,Delayed Release(Dr/Ec)
1 cap PO AC
clonidine HCl 0.1 mg Tablet
0.1 mg PO BIDPRN PRN (Reason: SBP>170)
latanoprost 0.005 % drops
1 drp BOTH EYES HS
nystatin 100,000 unit/mL Suspension
0 ml mucous membrane BID
sodium polystyrene sulfonate 15 gram/60 mL Suspension
15 g PO DAILYPRN PRN (Reason: missed dialysis day)
insulin lispro [Humalog KwikPen Insulin] 100 unit/mL insulin pen
2 unit SC AC
Rx Instructions:
201-250=2UNITS, 251-300=4UNITS
cholecalciferol (vitamin D3) 25 mcg (1,000 unit) Tablet
50 mcg PO HS
sevelamer carbonate [Renvela] 800 mg Tablet
800 mg PO MEALS
B-complex with vitamin C Tablet
1 tab PO DAILY
nifedipine [Procardia XL] 90 mg Tablet Extended Release 24hr
90 mg PO BID
Rx Instructions:
EVERY Wednesday
B-complex with vitamin C Tablet
1 tab PO DAILY
pantoprazole [Protonix] [address] for susp in packet
40 mg PO DAILY
ondansetron HCl 4 mg Tablet
4 mg PO Q8HPRN PRN (Reason: nausea) Qty: 0 0RF
insulin glargine 100 unit/mL (3 mL) insulin pen
3 unit SC HS Qty: 0 0RF
Referrals:
Taiwo Madrid DO [Family Provider] - Follow up in 2-3 days
Interventions
Interventions:
*Risk Screen - Suicide Last Done: 09/16/24 17:41
*General Assessment Last Done: 09/16/24 17:41
*Neglect/Abuse Screening Last Done: 09/16/24 17:41
*ED- Fall Risk Assessment Last Done: 09/16/24 17:41
*ED COVID-19 Vaccine History Last Done: 09/16/24 17:41
IP-Ckfsvj-Hcdjewclof Assessment Last Done: 09/16/24 17:58
Discharge Date and Time
Print Language: ROMANIAN
[2024-09-16 18:43] LABS: Lipase 89 U/L (23-300)
[2024-09-16 19:13] LABS: Troponin I 0.013 ng/ml
[2024-09-16] MEDS: ZOFRAN 4 MG IV (20:48)
[2024-09-16 21:51] LABS: Urine Albumin 3+ (Neg - Trace); Urine Bilirubin Negative (Negative); Urine Character Slightly Cloudy (Clear); Urine Color Amber; Urine Glucose 2+ (Negative); Urine Ketone Negative (Negative); Urine Leukocyte 3+ (Negative); Urine Nitrite Negative (Negative); Urine Occult Blood 4+ (Negative); Urine Urobilinogen Negative (Neg - 1+)
[2024-09-16 22:03] LABS: Urine Bacteria Many (Negative); Urine Red Blood Cell >100 /HPF (0-2); Urine White Cell 70-80 /HPF (0-5)
[2024-09-16] MEDS: ROCEPHIN 1000 MG IV (22:59)
== END 2024-09-16 23:21 | disposition home or self-care (01) ==
LOC: EMR 17:38
PROVIDERS: EMERGENCY PHYSICIAN Emergency Medicine; FAMILY PHYSICIAN Internal Medicine
DX: N39.0 Urinary tract infection, site not specified (principal); R11.10 Vomiting, unspecified; R19.7 Diarrhea, unspecified; R10.816 Epigastric abdominal tenderness; I12.0 Hypertensive chronic kidney disease with stage 5 chronic kidney disease or end stage renal disease; E11.22 Type 2 diabetes mellitus with diabetic chronic kidney disease; N18.6 End stage renal disease; Z99.2 Dependence on renal dialysis; F03.A0 Unspecified dementia, mild, without behavioral disturbance, psychotic disturbance, mood disturbance, and anxiety; K74.60 Unspecified cirrhosis of liver; K52.9 Noninfective gastroenteritis and colitis, unspecified; D64.9 Anemia, unspecified; F17.200 Nicotine dependence, unspecified, uncomplicated; Z88.8 Allergy status to other drugs, medicaments and biological substances
CPT/HCPCS: 99284; 96374; 96375; 74176; 80053; 81003; 81015; 83690; 84484; 85025; 87077; 87086; 93005